=== PATIENT | male | born 1970 | race Caucasian/White ===

== ENCOUNTER 2018-07-16 13:35 | Inpatient (IN) ==
[~2018-07-16 13:35] MED LIST: ANTIZOL IV ONE; NS IV ONE
[2018-07-16] MEDS ORDERED: NS 1,000 ML IV ONE ×2 (13:47→14:24)
[2018-07-16 13:57] LABS: BE -23.6 mmoll (-3.0-3.0); BLOOD TYPE ARTERIAL; HCO3-(ACT) 6.5 mmoll (20.0-26.0); METHB 1.2 % (0.0-1.5); O2(CT) 14.9 mL/dL (15.0-23.0); O2HB 96.5 % (95.0-99.0); PO2(98.6) 134 mmHg (60-100); SAMPLE BLOOD; THB 10.8 g/dL (11.5-17.4)
[2018-07-16 14:02] LABS: HEMATOCRIT 30.7 % (42.0-52.0); HEMOGLOBIN 10.3 g/dL (14.0-18.0); MCH 34.6 PG (27-31); MCHC 33.6 g/dL (33-37); RBC 2.98 XMIL (4.7-6.1)
[2018-07-16 14:02] LABS: pH(98.6) 7.09 (7.35-7.45)
[2018-07-16 14:03] LABS: BASO# 0.01 X1000 (0.0-0.2); BASO% 0.1 % (0.0-0.8); EOS# 0.01 X1000 (0.0-0.7); EOS% 0.1 % (0.0-10.0); IMM GRAN# 0.05 X1000 (0.0-0.04); LYMPH# 0.48 X1000 (1.2-3.4); LYMPH% 3.7 % (20.5-51.1); MONO# 1.39 X1000 (0.11-0.59); MONO% 10.6 % (1.7-9.3); MPV 10.7 FL (7.4-10.4); NEUT# 11.18 X1000 (1.4-6.5); NEUT% 85.1 % (42.2-75.2); PLT 151 X1000 (130-400)
[2018-07-16 14:03] LABS: ALLEN TEST NO; MODALITY ROOM AIR; PCO2(98.6) 14 mmHg (35-45)
[2018-07-16 14:31] LABS: INR 1.31; PROTIME 16.9 Seconds (11.0-16.0)
[2018-07-16 14:41] LABS: PTT 27.6 Seconds (22.3-41.8)
[2018-07-16 14:42] LABS: ALBUMIN 3.8 g/dL (3.5-5.0); ALKALINE PHOSPHATASE 103 U/L (32-122); BUN 58 mg/dL (8-22); CALCIUM 6.5 mg/dL (8.8-10.2); CHLORIDE 83 mmol/L (98-107); COSMO 308; CREATININE 2.6 mg/dL (0.7-1.2); ESTIMATED GFR 27; GLUCOSE 126 mg/dL (70-104); GOT 151 U/L (10-34); GPT 53 U/L (10-44); POTASSIUM 3.3 mmol/L (3.5-5.1); SODIUM 146 mmol/L (136-145); TOTAL PROTEIN 6.1 g/dL (6.3-8.3)
[2018-07-16] MEDS ORDERED: M.V.I.-12 10 ML, FOLIC ACID 1 MG, MAGNESIUM SULFATE 1 GM, THIAMINE 100 MG in NS 1,000 ML IV ONE (14:46)
[2018-07-16 14:47] LABS: BILIRUBIN URINE NEGATIVE (NEGATIVE); BLOOD URINE 1+ (NEGATIVE); CLARITY CLEAR (CLEAR); COLOR YELLOW; GLUCOSE URINE NEGATIVE (NEGATIVE); KETONE URINE 3+(Large) mg/dL (NEGATIVE); LEUKOCYTES URINE TRACE (NEGATIVE); NITRITE URINE NEGATIVE (NEGATIVE); PH URINE 6.5; PROTEIN URINE 1+(30 mg/dL) mg/dL (NEGATIVE); SP GRAVITY URINE 1.025; UROBILINOGEN URINE 4 mg/dL
[2018-07-16 14:49] LABS: URINE BACTERIA 1+ /HFP; URINE EPITHELIAL CELLS <10 /HPF (<10); URINE RBC <10 /HPF (<10); URINE WBC <10 /HPF (<10); URINE YEAST NONE SEEN /HPF
[2018-07-16 14:50] LABS: URINE CAST NONE SEEN /LPF; URINE CRYSTAL NONE SEEN /HPF; URINE SOURCE CATH
--- NOTE | 2018-07-16 15:06 | Diag Imaging Result Doc PS360 ---
EXAM: CHEST-1 VIEW HISTORY: ams TECHNIQUE: Chest single view COMPARISON: 08/22/2015 FINDINGS: Poor inspiratory effort.. The heart is not enlarged. The vessels are not distended. There are no infiltrates. No effusion identified. IMPRESSION: Negative exam. Electronically signed by Breezy Butler 07/16/2018 3:04 PM
[2018-07-16 15:08] LABS: CK INDEX 1.2 (0.0-2.5); CK PROFILE 4064 U/L (24-204); CK-MB 48.85 ng/mL (0.0-5.0)
[2018-07-16 15:25] LABS: TCO2 3 mmol/L (25-35)
--- NOTE | 2018-07-16 15:39 | EKG Report ---
Test Performed on : 07/16/2018 2:44:01 PM Test Reason : CP Blood Pressure : / mmHG Vent. Rate : 085 BPM Atrial Rate : 085 BPM P-R Int : 094 ms QRS Dur : 092 ms QT Int : 474 ms P-R-T Axes : 046 064 063 degrees QTc Int : 564 ms Sinus rhythm. with short [place] with premature supraventricular complexes. Lateral infarct , age undetermined Prolonged QT Abnormal ECG When compared with ECG of 24-OCT-2015 11:24, Significant changes have occurred Confirmed by Shani MIMS, Wong ([id number]), news videotape editor Marcie Smith ([id number]) on 07/21/2018 1:54:54 PM
[2018-07-16 16:02] LABS: ACETAMINOPHEN < 1.2 ug/mL (10-30); SALICYLATES < 3.00 mg/dL (3-10)
[2018-07-16] MEDS ORDERED: NS 1,000 ML IV SCH (16:30)
[2018-07-16] MEDS ORDERED: CALCIUM GLUCONATE 2 GM in NS 100 ML IV ONE (16:35)
--- NOTE | 2018-07-16 16:44 | Diag Imaging Result Doc PS360 ---
EXAM: CT HEAD W/O CONTRAST HISTORY: AMS TECHNIQUE: CT head without contrast COMPARISON: 10/24/2015 FINDINGS: No parenchymal hemorrhage. No epidural or subdural hematoma. No subarachnoid hemorrhage. Borderline mild atrophy. No mass identified on this noncontrasted exam. No hydrocephalus. No sinus opacification. IMPRESSION: No hemorrhage. This exam was performed using automated exposure control, adjustment of mA or kV according to patient size, and/or use of iterative reconstruction technique. Electronically signed by Breezy Butler 07/16/2018 4:41 PM
[2018-07-16 17:05] LABS: BE -23.8 mmoll (-3.0-3.0); BLOOD TYPE ARTERIAL; HCO3-(ACT) 6.4 mmoll (20.0-26.0); METHB 1.1 % (0.0-1.5); O2(CT) 14.3 mL/dL (15.0-23.0); O2HB 96.8 % (95.0-99.0); PO2(98.6) 132 mmHg (60-100); SAMPLE BLOOD; SAO2 100.1 % (95.0-100.0); THB 10.3 g/dL (11.5-17.4)
[2018-07-16] MEDS: PROTONIX IV SCH (17:10)
--- NOTE | 2018-07-16 17:10 | HISTORY AND PHYSICAL ---
CHIEF COMPLAINT: Found altered. HISTORY OF PRESENT ILLNESS: This is a chronically ill-looking 48-year-old male with history of alcohol abuse who apparently was confused since yesterday, according to mom patient is confused and not able to provide any pertinent information. Apparently mother and father who are at bedside report that he was having a noncoherent speech yesterday and apparently overnight he has been lying down on the ground. This morning he was very confused, mom was trying talk to him but he was not able to answer appropriately questions so EMS was called and he was brought to the emergency department. Here in the in the ER he was found out to have severe metabolic acidosis with elevated renal function, elevated CK with moderate acetone levels although the plasma serum ethyl alcohol was 0 so we were called for admission. PAST MEDICAL HISTORY: Patient has been diagnosed with hypertension but for the last few months he is not taking any medication. PAST SURGICAL HISTORY: None. ALLERGIES: No known drug allergies. SOCIAL HISTORY: The patient is , he has 2 kids but he lives with parents. He smokes half a pack per day and he drinks whiskey apparently ever single day. Mother reports that he mix whiskey with Gatorade in order to pretend that he is not drinking alcohol. REVIEW OF SYSTEMS: Unfortunately because of his clinical situation he is not able to provide any major history . OBJECTIVE: Vital Signs: Temperature 95.3 degrees, heart rate 83, respiratory rate 24, blood pressure 86/54, O2 saturation 100% on 2 L nasal cannula. General: This is a chronically ill appearing frail and disheveled 48-year-old male lying in bed in no acute distress. HEENT: Head is normocephalic, atraumatic. Poor oral hygiene and also mucous membranes very dry. Neck: No JVD noted. No carotid bruits. No lymphadenopathy. No thyromegaly. Cardiovascular: S1, S2 heard. No murmurs, gallops, or rubs. Regular rate and rhythm. Respiratory: Clear bilaterally to auscultation. Decreased breath sounds globally. Minimal wheezing noted in both pulmonary bases. Patient not using any accessory muscles or having work of breathing. Abdomen: Soft, a little bit distended, nontender to palpation. Bowel sounds present. No organomegaly. Extremities: Definitely this patient is sleepier and lethargic, does not follow commands. LABORATORY DATA: White cell count 13.2, hemoglobin 10.3, hematocrit 30.7, platelets 151,000 with ABG that shows pH 7.09, pCO2 14, PO2 134, that sample was taken on room air with sodium 146, potassium 3.3, chloride 83, bicarbonate 3, anion gap no reportable, BUN 58, creatinine 2.6, glucose 126, calcium 6.7, creatine kinase 4000 with negative troponins and plasma lactate 1.6. CT of the head is still pending. Chest x-ray done on admission showed negative exam. ASSESSMENT AND PLAN: 1. Severe metabolic acidosis. 2. Severe dehydration. 3. Alcohol withdrawal. 4. Hepatic encephalopathy. 5. Severe dehydration. 6. Acute kidney injury secondary to dehydration. 7. Transaminitis. 8. Alcohol abuse. PLAN: This patient basically came to the emergency department because of metabolic encephalopathy and he was found out to be very acidotic. In that regard he has received already 2 L of normal saline and also he is receiving banana bag. We are going to check an ABG at 5 p.m. to see there is any change in metabolic acidosis. Because of his renal dysfunction he may need to have dialysis he does not continue to improve, will transfer in that regard this patient to [facility] [place] and will consult Nephrology for that. Regarding alcohol withdrawal we will start this patient on lorazepam 1 to 2 mg IV q.2 hours p.r.n. Also because this patient is a known alcoholic with ammonia level 158 will start lactulose and rifaximin and will continue to monitor this patient closely. We are also going to check phosphorus as well and will replete as needed. CRITICAL CARE TIME: 45 minutes. cc: Domenico Tyler MD
--- NOTE | 2018-07-16 17:11 | PROVIDER DOCUMENTATION ---
This chart was entered by Iris Hernandez Scribe, acting as scribe for Wong Mcleod MD. HPI-General Adult - General Chief Complaint: Altered Mental Status Stated Complaint: ams Time Seen by Provider: 07/16/18 14:06 Source: patient Allergies/Adverse Reactions: Patient Allergies Allergy/AdvReac Type Severity Reaction Status Date / Time No Known Allergies Allergy Verified 07/16/18 13:46 Home Medications: Home Medication List Medication Instructions Recorded Confirmed Last Taken Type Amlodipine [Norvasc] 10 mg PO DAILY #60 tablet 10/30/15 Unknown Rx Chlordiazepoxide [Librium] 50 mg PO TID #60 capsule 10/30/15 Unknown Rx Clonidine [Catapres] 0.1 mg PO Q4H #120 tablet 10/30/15 Unknown Rx LISINOpril [Prinivil] 20 mg PO DAILY #60 tablet 10/30/15 Unknown Rx Magnesium Oxide [Mag-Ox] 800 mg PO BID #120 tablet 10/30/15 Unknown Rx Niacin 100 mg PO DAILY #60 tablet 10/30/15 Unknown Rx Thiamine [Vitamin B-1] 100 mg PO DAILY #60 tablet 10/30/15 Unknown Rx - History of Present Illness -Gen Adult Nature of Presenting Problems: 48 y/o male presents to ED via EMS with AMS onset this afternoon. Mother of pt reports he is attempting to detox from alcohol and has been agitated over the past 2 days. Mother states he has been lying in the floor for the past 2 days and told her to leave him alone. Pt has not eaten and has had minimal po fluid intake. Pt has been less responsive today and has not been talking. Pt is altered and does not follow commands or answer questions. Location of Pain/Injury: reports: none Pain Radiation: reports: no radiation Quality of Pain: reports: none Severity: reports: moderate, severe Onset/Duration: reports: this afternoon Timing: reports: still present Context/Activities at Onset: reports: none Modifying Factors: improves with: nothing Associated Symptoms: reports: other (AMS) Similar Symptoms Previously?: No Recently seen or treated by another doctor?: No Review of Systems - Adult - REVIEW OF SYSTEMS - ADULT Constitutional: reports: other (AMS). denies: chills, fever Eyes: reports: no symptoms reported Ears, Nose, Mouth & Throat: reports: no symptoms reported Cardiovascular: denies: chest pain, palpitations Respiratory: denies: cough, shortness of breath Gastrointestinal: denies: abdominal pain, diarrhea, nausea, vomiting Genitourinary: reports: no symptoms reported Musculoskeletal: denies: back pain, joint pain Integumentary: reports: no symptoms reported Neurological: denies: dizziness/vertigo, seizure Psychiatric: reports: no symptoms reported Endocrine: reports: no symptoms reported Hematologic/Lymphatic: reports: no symptoms reported Allergic/Immunologic: reports: no symptoms reported All Other Systems: Reviewed and Negative Past History - Adult - PAST MEDICAL HISTORY-ADULT Review of Records: reports: Old Records Reviewed, Nursing Assessment Review, Medications Reviewed Major Childhood Illnesses: reports: denies history Cardiovascular: reports: denies history, HTN Respiratory: reports: denies history Gastrointestinal: reports: denies history Obstetrical/Gynecological: reports: denies history Genitourinary: reports: denies history Musculoskeletal: reports: denies history Neurological: reports: denies history Endocrine/Immune: reports: denies history Other Conditions: reports: denies history - PRIOR SURGERIES/PROCEDURES Surgical/Procedure History: reports: orthopedic (extremity) (knee; hand) - IMMUNIZATION STATUS Childhood Immunizations: See Nurse Assessment Flu Vaccine: See Nurse Assessment - FAMILY HISTORY Family History: reviewed, not pertinent - SOCIAL HISTORY Smoking: less than 1 pack/day Provider spent 3-5 mins advising pt. on dangers of tobacco.: Discussed manners to quit use, and f/u contacts for add'l counseling. Substance Use: alcohol Alcohol Use Frequency: every day Living Situation: family Physical Exam-General - PHYSICAL EXAM-ADULT Exam Limited by: AMS Initial Vital Signs Reviewed: Yes (hypotensive on monitor) - CONSTITUTIONAL General Appearance: no apparent distress, other (AMS; does not follow commands or speak) - EYES Eyes: PERRL/EOMI, pink conjunctivae - HEAD, EARS, NOSE, MOUTH & THROAT HENMT: normocephalic/atraumatic, moist mucous membranes, other (encephalopathic) - NECK Neck: full range of motion - RESPIRATORY Respiratory: lungs clear, normal breath sounds, increased rate - CARDIOVASCULAR Cardiovascular: normal peripheral pulses, regular rate, rhythm - GASTROINTESTINAL (ABDOMEN) Abdominal Exam: normal bowel sounds, non tender, soft - MUSCULOSKELETAL Back Exam: normal inspection Extremity: normal range of motion - SKIN Integumentary: normal color, warm/dry, ecchymosis (to anterior RUE), other (skin breakdown to R abdomen; dried blood present on R wrist) - NEUROLOGIC Neurologic: other (AMS; does not follow commands or speak) - PSYCHIATRIC Psych/Mental Status: other (AMS; does not follow commands or speak) Progress - PLAN OF CARE/RESULTS Progress/Plan/Lab Results: Vital Signs - 8 hr 07/16/18 13:38 Temperature 95.3 F L Pulse Rate 90 Respiratory Rate 19 Blood Pressure 73/45 Laboratory Results - last 24 hr 07/16/18 07/16/18 13:41 13:51 WBC 13.20 H RBC 2.98 L Hgb 10.3 L Hct 30.7 L MCV 103.0 H MCH 34.6 H MCHC 33.6 RDW Std Deviation 12.0 Plt Count 151 MPV 10.7 H Neut % (Auto) 85.1 H Lymph % (Auto) 3.7 L [place] % (Auto) 10.6 H Eos % (Auto) 0.1 Baso % (Auto) 0.1 Immature Gran # (Auto) 0.05 H Neut # (Auto) 11.18 H Lymph # (Auto) 0.48 L [place] # (Auto) 1.39 H Eos # (Auto) 0.01 Baso # (Auto) 0.01 Specimen Type ARTERIAL Sample Site R BRACHIAL pH 7.09 L* pCO2 14 L* pO2 134 H HCO3 6.5 L Base Excess -23.6 L Oxyhemoglobin 96.5 ABG O2 Sat (Calculated) 14.9 L ABG O2 Saturation 100.0 ABG Carboxyhemoglobin 2.30 ABG Methemoglobin 1.2 Jan Test NO A-a O2 Difference -2.0 Total Hemoglobin 10.8 L Lactate 2.40 H Blood Gas Modality ROOM AIR FiO2 % 21.0 Orders Category Date Time Status Cardiac Monitoring DIRECTED Care 07/16/18 13:39 Active [place] Cath Insertion ORDERED Care 07/16/18 13:50 Active IV Insertion ORDERED Care 07/16/18 13:39 Completed Notify MD of + Sepsis Screen NOW Care 07/16/18 13:39 Active Notify Physician As Ordered Care 07/16/18 13:39 Active Saline Loc NOW Care 07/16/18 13:47 Active CHEST-1 VIEW [RAD] Stat Exams 07/16/18 13:39 Ordered ABG [RESP] Routine Lab 07/16/18 13:41 Completed ALCOHOL BLOOD Stat Lab 07/16/18 13:55 Received AMMONIA [CHEM] Stat Lab 07/16/18 13:51 Received BLOOD CULTURE [BLDCUL] Stat Lab 07/16/18 13:40 Ordered CBC WITH DIFF [HEME] Stat Lab 07/16/18 13:51 Completed CK PROFILE [SP CHEM] Stat Lab 07/16/18 13:55 Received COMPREHENSIVE METABOLIC PANEL [CHEM] Stat Lab 07/16/18 13:55 Received LACTATE, PLASMA [CHEM] Lab 07/16/18 13:55 Received LACTATE, PLASMA [CHEM] Lab 07/16/18 16:45 Uncollected LACTATE, PLASMA [CHEM] Lab 07/16/18 19:45 Uncollected MAGNESIUM [CHEM] Stat Lab 07/16/18 13:55 Received PROTIME WITH INR [COAG] Stat Lab 07/16/18 13:55 Received PTT [COAG] Stat Lab 07/16/18 13:55 Received TROPONIN T Stat Lab 07/16/18 13:[address] W/POSS RFLX CULT [URINALYSIS] Stat Lab 07/16/18 13:39 Uncollected 0.9% Sodium Chloride Inj [Ns] 1,000 ml Med 07/16/18 13:47 Active IV 999 mls/hr Oxygen Device Stat Oth 07/16/18 13:39 Active Result Diagrams: 07/16/18 13:51 07/16/18 13:55 - EKG 1 Time of EKG reading by physician:: 14:44 EKG Read and Signed by:: Wong Mcleod EKG Interpretation (*Must complete 3 of following elements*): Abnormal Rate: 85 Rhythm: Sinus w/ short [place] w/ premature supraventricular complexes [place]: normal QRS: other (lateral infarct; prolonged QT) [place] Interval: shortened ST Wave: normal Comments: 1 ectopic beat. -Dr. Mcleod - XRAY 1 XRAY Study: Chest Impression: Normal ( FINDINGS: Poor inspiratory effort.. The heart is not enlarged. The vessels are not distended. There are no infiltrates. No effusion identified. IMPRESSION: Negative exam. Electronically signed by Breezy Butler 07/16/2018 3:04 PM) - CONSULTS/PCP/HOSPITALIST Notification #1 *Consult/PCP/Hospitalist*: Dr. Mcelroy Time Discussed: 14:30 Reason/Comments: Metabolic ketoacidosis, high CK, alcoholism, hypotension, ANGEL Consult Disposition: Admit Departure - Departure Date of Disposition Decision: 07/16/18 Time of Disposition Decision: 16:08 DIAGNOSIS: Ketoacidosis, Alcoholism, Tobacco abuse disorder Hypotension Qualifiers: Hypotension type: unspecified hypotension type Qualified Code(s): I95.9 - Hypotension, unspecified Renal failure Qualifiers: Renal failure chronicity: acute on chronic Acute renal failure type: unspecified Chronic kidney disease stage: unspecified stage Qualified Code(s): N17.9 - Acute kidney failure, unspecified; N18.9 - Chronic kidney disease, unspecified Disposition: ADMITTED INPATIENT 09 Certified Medical Emergency: Emergent Condition: Fair Additional Freetext Instructions: ED Follow Up Instructions: You have been treated by a care provider in the Emergency Department. These inst ructions are being provided to you so you can have an understanding of how to care for yourself upon discharge. Upon discharge from the Emergency Department, you are responsible for making arrangements for follow-up care by a physician of your choice. Take all prescribed medications as directed. Return to the Emergency Department immediately for any new or worsening symptoms. You may call the Physician Referral phone number at [phone] to obtain a list of Physicians who are taking new patients. Referrals and Follow-Ups: None,PCP [Primary Care Provider] - Discharge Education: Steps to Quit Smoking, [id number] - Critical Care Note This patient required my direct & personal management of CC.: No Attestation - Physician/ PRISCILA Attestation Patient care was provided by Advanced Practice Provider:: No The physician spent face to face time with patient:: Yes Advanced Practice Provider documentation review:: Supervising physician onsite and consulted in the evaluation and care of this patient. The physician did have a face to face encounter with the patient. This chart was documented by the indicated scribe, (Iris Hernandez, Brianne) and accurately reflects the services I performed and decisions made by me, Wong Mcleod MD, as attested by the provider's signature.
[2018-07-16] MEDS ORDERED: ROCEPHIN 2 GM in NS 50 ML IV ONE (17:18)
[2018-07-16] MEDS ORDERED: ROCEPHIN ONE (17:29)
[2018-07-16] MEDS ORDERED: NS 100 ML ONE (17:29)
[2018-07-16 17:38] LABS: pH(98.6) 7.09 (7.35-7.45)
[2018-07-16 17:39] LABS: ALLEN TEST NO; MODALITY CANNULA; PCO2(98.6) 13 mmHg (35-45)
--- NOTE | 2018-07-16 17:54 | Diag Imaging Result Doc PS360 ---
EXAM: US ABDOMEN-COMPLETE HISTORY: severe metabolic acidosis TECHNIQUE: Abdominal ultrasound COMPARISON: None. FINDINGS: Normal pancreatic body. Portions of the head and tail are obscured. No abdominal aortic aneurysm. There is fatty infiltration of the liver. Normal gallbladder. No stones. The common bile duct measures 3 mm. Normal right kidney. No hydronephrosis. The inferior vena cava is poorly seen. Normal left kidney. No hydronephrosis. Normal spleen. No ascites. IMPRESSION: Fatty infiltration of the liver Electronically signed by Breezy Butler 07/16/2018 5:52 PM
[2018-07-16] MEDS: ZOFRAN IV PRN (18:44)
[2018-07-16] MEDS: ATIVAN IV PRN ×2 (18:48→23:03)
[2018-07-16] MEDS: LOPRESSOR IV SCH (19:37)
[2018-07-16] MEDS: SODIUM BICARBONATE 8.4% 150 MEQ in D5W 1,000 ML IV SCH (20:02)
[2018-07-16] MEDS: POTASSIUM CHLORIDE 20 MEQ/SWI 20 MEQ/100 ML IVPB IV SCH ×2 (20:03→22:22)
[2018-07-16] MEDS ORDERED: MISC. PHARMACY COMMUNICATION SCH (20:30)
[2018-07-16 20:44] LABS: BASO# 0.01 X1000 (0.0-0.2); BASO% 0.1 % (0.0-0.8); HEMATOCRIT 30.9 % (42.0-52.0); HEMOGLOBIN 10.1 g/dL (14.0-18.0); IMM GRAN# 0.05 X1000 (0.0-0.04); IMM GRAN% 0.5 % (0.0-0.5); LYMPH# 0.81 X1000 (1.2-3.4); LYMPH% 7.7 % (20.5-51.1); MCH 33.4 PG (27-31); MCHC 32.7 g/dL (33-37); MCV 102.3 FL (81-99); MONO# 0.67 X1000 (0.11-0.59); MONO% 6.4 % (1.7-9.3); MPV 10.1 FL (7.4-10.4); NEUT# 8.95 X1000 (1.4-6.5); NEUT% 85.3 % (42.2-75.2); PLT 142 X1000 (130-400); RBC 3.02 XMIL (4.7-6.1); RDW 12.2 % (11.5-14.5); WBC 10.49 X1000 (4.8-10.8)
[2018-07-16 20:57] LABS: LYMPHS 8 % (21-51); MONO 6 % (1-9); SEGS 84 % (42-75)
[2018-07-16] MEDS ORDERED: LACTULOSE PO SCH (21:00)
[2018-07-16] MEDS ORDERED: MISC. PHARMACY COMMUNICATION ONE (21:16)
[2018-07-16 21:22] LABS: MAGNESIUM 2.5 mg/dL (1.5-2.7); PHOSPHORUS 10.7 mg/dL (2.7-4.5)
[2018-07-16] MEDS: XIFAXAN PO SCH (21:28)
[2018-07-16 21:30] LABS: ALB/GLOB RATIO 1.4; ALBUMIN 3.4 g/dL (3.5-5.0); ALKALINE PHOSPHATASE 99 U/L (32-122); BUN 63 mg/dL (8-22); CALCIUM 6.5 mg/dL (8.8-10.2); CHLORIDE 94 mmol/L (98-107); CK PROFILE 13501 U/L (24-204); COSMO 322; CREATININE 2.4 mg/dL (0.7-1.2); ESTIMATED GFR 29; GLUCOSE 133 mg/dL (70-104); GOT 219 U/L (10-34); GPT 64 U/L (10-44); POTASSIUM 3.2 mmol/L (3.5-5.1); SODIUM 152 mmol/L (136-145); TCO2 5 mmol/L (25-35); TOTAL BILIRUBIN 1.97 mg/dL (0.20-1.00); TOTAL PROTEIN 5.9 g/dL (6.3-8.3)
[2018-07-16 21:47] LABS: CK INDEX 0.9 (0.0-2.5)
[2018-07-16] MEDS: NON-FORMULARY MED PR SCH (21:53)
[2018-07-16] MEDS ORDERED: CALCIUM GLUCONATE 1 GM in NS 50 ML IV ONE (22:39)
[2018-07-16 23:30] LABS: ALBUMIN 3.4 g/dL (3.5-5.0); CALCIUM 6.5 mg/dL (8.8-10.2); CREATININE 2.5 mg/dL (0.7-1.2); PHOSPHORUS 9.1 mg/dL (2.7-4.5); POTASSIUM 3.3 mmol/L (3.5-5.1)
[2018-07-17] MEDS: LOPRESSOR IV SCH ×4 (00:15→22:03)
[2018-07-17] MEDS: SODIUM BICARBONATE 8.4% 150 MEQ in D5W 1,000 ML IV SCH ×3 (02:37→17:28)
[2018-07-17] MEDS: PROTONIX IV SCH ×2 (03:40→16:09)
--- NOTE | 2018-07-17 04:19 | NEPHROLOGY CONSULTATION ---
DATE: 07/16/2018 REASON FOR CONSULTATION: Severe acidosis and acute kidney injury. HISTORY OF PRESENT ILLNESS: Mr. Pascal is a 48-year-old man with a history of alcohol abuse and hypertension, but he does not take any medications. He was brought to the emergency room because of worsening confusion over the last 24 hours. Family is not present at the bedside at the time my examination, with adequate stimulation he will mumble and open his eyes, but he is not able to answer any questions. The chart relates that the parents found him in coherent and lying on the ground. No further history is available to me. PAST MEDICAL HISTORY: As above. SOCIAL HISTORY: The time of his last drink is not known to me. He smokes. FAMILY HISTORY: Not obtainable. REVIEW OF SYSTEMS: Not obtainable. PHYSICAL EXAMINATION: Vital Signs: Blood pressure 91/47, heart rate 87, respiration 18, afebrile. General: Acutely ill, confused, tremulous. Skin: Warm and dry. HEENT: Conjunctivae are pink. Pupils are 2 mm and reactive. Oropharynx is dry. Tongue is coated. Poor oral hygiene. Neck: Supple. Trachea is midline. Neck veins are not visible. Heart: Regular and tachycardic. Lungs: Equal, shallow, no crackles. Abdomen: He has general tenderness, but not clear guarding or rebound. Bowel sounds are diminished. Extremities: Have no edema, clubbing, or cyanosis. Intact distal pulses. IMPRESSION: Alcoholic ketoacidosis. Profoundly elevated anion gap at around 50 on presentation. Appropriate respiratory compensation. Mild hypokalemia but severe hyperphosphatemia and hypocalcemia present. He is developing rhabdomyolysis with creatine kinase rising from 4000 to 13,000 over the first 12 hours. His measured Osmolal gap is 29. Serum ethanol is negative. Salicylate and acetaminophen are both negative as well. Again, the most likely cause is alcoholic ketoacidosis. However, given his elevated osmolal gap I will cover with famethoxazole until further results are available. He does not have crystals on his urine, and his serum ethylene glycol level is pending. Continue D5 with 3 amps sodium bicarbonate, as well as potassium supplementation, intravenous lorazepam, metoprolol as needed. He has received multivitamin with thiamine. cc: Frankie Lugo MD
[2018-07-17 04:54] LABS: HEMATOCRIT 29.7 % (42.0-52.0); HEMOGLOBIN 10.2 g/dL (14.0-18.0); IMM GRAN# 0.03 X1000 (0.0-0.04); IMM GRAN% 0.4 % (0.0-0.5); LYMPH# 0.42 X1000 (1.2-3.4); LYMPH% 5.1 % (20.5-51.1); MCH 34.3 PG (27-31); MCHC 34.3 g/dL (33-37); MONO% 9.7 % (1.7-9.3); MPV 10.2 FL (7.4-10.4); NEUT# 6.99 X1000 (1.4-6.5); NEUT% 84.8 % (42.2-75.2); PLT 112 X1000 (130-400); RBC 2.97 XMIL (4.7-6.1); RDW 12.1 % (11.5-14.5); WBC 8.24 X1000 (4.8-10.8)
[2018-07-17 04:58] LABS: INR 1.18; PROTIME 15.9 Seconds (11.0-16.0)
[2018-07-17 05:07] LABS: ALLEN TEST YES; BLOOD TYPE ARTERIAL; HCO3-(ACT) 17.9 mmoll (20.0-26.0); O2(CT) 12.9 mL/dL (15.0-23.0); O2HB 96.3 % (95.0-99.0); PCO2(98.6) 43 mmHg (35-45); PO2(98.6) 144 mmHg (60-100); SAMPLE BLOOD; SAO2 96.5 % (95.0-100.0); THB 9.3 g/dL (11.5-17.4); pH(98.6) 7.23 (7.35-7.45)
[2018-07-17 05:08] LABS: MODALITY CANNULA
[2018-07-17 05:12] LABS: ALB/GLOB RATIO 1.3; CREATININE 2.9 mg/dL (0.7-1.2); POTASSIUM 2.7 mmol/L (3.5-5.1); TOTAL BILIRUBIN 1.08 mg/dL (0.20-1.00); TOTAL PROTEIN 5.3 g/dL (6.3-8.3)
[2018-07-17 05:42] LABS: CALCIUM 6.4 mg/dL (8.8-10.2)
[2018-07-17] MEDS ORDERED: POTASSIUM CHLORIDE 60 MEQ in NS 500 ML IV ONE ×2 (07:03)
[2018-07-17] MEDS ORDERED: CALCIUM GLUCONATE 2 GM in NS 100 ML IV ONE (07:03)
[2018-07-17] MEDS ORDERED: M.V.I.-12 10 ML, FOLIC ACID 1 MG, MAGNESIUM SULFATE 1 GM, THIAMINE 100 MG in NS 1,000 ML IV ONE (08:00)
[2018-07-17] MEDS: XIFAXAN PO SCH ×2 (08:09→22:30)
[2018-07-17 09:45] LABS: URINE SOURCE CATH
[2018-07-17 09:57] LABS: UR EPITHELIAL CELLS <10 /HPF (<10); URINE BACTERIA NEGATIVE /HPF; URINE RBC TNTC /HPF (<10)
[2018-07-17 10:06] LABS: BILIRUBIN URINE SMALL (NEGATIVE); BLOOD URINE LARGE (NEGATIVE); COLOR ORANGE; GLUCOSE URINE TRACE mg/dL (NEGATIVE); KETONE URINE 60 mg/dL (NEGATIVE); LEUKOCYTES URINE TRACE (NEGATIVE); NITRITE URINE NEGATIVE (NEGATIVE); PH URINE 5.5; PROTEIN URINE 100 mg/dL (NEGATIVE); TURBIDITY URINE HAZY (CLEAR); UROBILINOGEN URINE NORMAL (NORMAL)
--- NOTE | 2018-07-17 10:12 | PROGRESS NOTE ---
DATE: 07/17/2018 SUBJECTIVE: The patient is now definitely more lethargic than yesterday. He has been calmed down most of the time. Last night, no acute issues noted as per nursing staff overnight. OBJECTIVE: Vital Signs: Temperature 98.2 degrees, heart rate 75, respiratory rate 14, blood pressure 111/74, O2 saturation 100% 2 L nasal cannula. General: This is a chronically ill- looking, disheveled 48-year-old male, lying in bed in no acute distress. HEENT: Normocephalic, atraumatic. Poor dentition. Mucous membrane dry. Neck: No JVD noted. No carotid bruits. No lymphadenopathy. No thyromegaly. Cardiovascular: S1-S2 heard. No murmur, gallops, or rubs. Regular rate and rhythm. Respiratory: Decreased breath sounds globally. There is minimal wheezing noted in both pulmonary bases. The patient is not using any accessory muscles or having work of breathing. Abdomen: Soft. A little bit distended. Same in comparing with yesterday but nontender to palpation. Bowel sounds present. No organomegaly. Extremities: No clubbing, cyanosis, or edema. Peripheral pulses present in both legs. Neurological: The patient is alert and oriented x3. The patient is confused and lethargic. Does not follow commands but moves all 4 extremities spontaneously. LABORATORY DATA: White cell count 8.34, hemoglobin 10.2, hematocrit 29.7, platelets 112,000. ABG shows pH 7.23, pCO2 43, PO2 144. Potassium 2.7, creatinine 2.9. Calcium 6.4, serum osmolality 3.43. Magnesium 2.3, phosphorus 6.0, creatine kinase 15,000. ASSESSMENT AND PLAN: 1. Alcoholic ketoacidosis. 2. Hypokalemia. 3. Hypophosphatemia. 4. Hepatic encephalopathy. 5. Nontraumatic rhabdomyolysis. The patient has been admitted to the hospital because he was found unresponsive. Labs all pointed to severe metabolic acidosis. Nephrology has been consulted. They are thinking that this patient may have ethylene glycol intoxication. The patient in regard has been provided Fomepizole. We will continue with bicarbonate drip. His numbers are looking much better today. Of course, will continue to monitor this patient closely because he may need dialysis. Will leave that decision to Dr. Lugo. Also I was called yesterday because this patient had an episode of SVT with heart rate in the range of 150-160 but after we started metoprolol 5 mg IV q.6 hours, heart rate is definitely much better controlled. For hepatic encephalopathy, the patient has been started on rifaximin and lactulose. The ammonia level is definitely much better. Also, we are going to treat his hypocalcemia. We will continue with IV fluids. We will continue to monitor this patient closely. cc: Domenico Tyler MD MTDD
--- NOTE | 2018-07-17 10:12 | NEPHROLOGY PROGRESS NOTE ---
DATE: 07/17/2018 SUBJECTIVE: Mr. Pascal is resting quietly in bed. Head of the bed is elevated. He is awake today but he drifts off to sleep. He continues to have fine nonpurposeful tremors of his head and extremities. OBJECTIVE: Vital Signs: His most recent vital signs temperature 97.8 pressure 118/74, heart rate 82, respirations 18. He is on 2 L nasal cannula. Last recorded saturation 99%. He has had 1350 in, 285 out to Orantes catheter. Laboratory Data: Sodium 145, potassium 2.7, chloride 94, CO2 14, BUN 69, creatinine 2.9, glucose 226. His anion gap is 37. His calcium is 6.4, phosphorus is down to 6, albumin of 3. White count 8.24, hemoglobin 10.2, hematocrit 29.7 with a platelet count of 112,000. His pro time is 15.9 with an INR of 1.18. ABG: pH 7.23, CO2 43, PO2 144, bicarb 17.9, lactate of 1.3 with a plasma lactate of 1.0. This is on 2 L. His last CPK 15,234. His ammonia level is 64, which is down. We will repeat a serum osmolality, last recorded was 348. General: This is a 48-year-old white male. He is resting quietly in bed. He appears chronically ill. He is in no acute distress. Skin: Warm and dry. HEENT: Normocephalic, atraumatic. Conjunctiva is pink. He has ELVA. Mucous membranes are dry. His tongue is coated. Neck: Supple. Trachea midline. He has negative JVD. Cardiovascular: He has regular rate and rhythm. He has an S4 present. Lungs: Clear to auscultation anteriorly, equal excursion on O2. Abdomen: Soft. Slight tenderness on palpation. Slight guarding noted. Genitourinary: Orantes catheter is in place. Minimal urine out. Extremities: Have no edema, no clubbing or cyanosis. Intact pulses. Neurological: As above. ASSESSMENT AND PLAN: 1. Acute kidney injury. BUN and creatinine continue to elevate. His urine output has dropped off to 285 per Orantes catheter. He continues to receive fluid resuscitation per sodium bicarbonate and a multivitamin IV bag. This may be multifactorial secondary to severe alcoholic ketoacidosis with an elevated anion gap. 2. Acidosis. The patient remains in alcoholic ketoacidosis with an elevated anion gap. His hyperphosphatemia has improved. Hypokalemia persists with hypocalcemia. His measured osmolar gap this morning is 29. The patient does remain on a sodium bicarbonate drip. He is being treated with fomepizole. We will continue to monitor. We will repeat his acetone level and check a UA. 3. Anemia. This is close to target. I would like to thank you for allowing us to follow with this patient. Dictated by POLA Vasquez for Frankie Lugo MD Face to face encounter, data reviewed, discussed with Katelynn Cook on 07/17/18. I agree with the above assessment and plan of care. cc: POLA Vasquez MD [facility]
[2018-07-17] MEDS: NON-FORMULARY MED PR SCH ×2 (10:21→22:17)
--- NOTE | 2018-07-17 11:28 | EKG Report ---
Test Performed on : 07/16/2018 5:54:05 PM Test Reason : ICU. No order in [place] Blood Pressure : / mmHG Vent. Rate : 154 BPM Atrial Rate : 147 BPM P-R Int : 000 ms QRS Dur : 090 ms QT Int : 332 ms P-R-T Axes : 000 026 258 degrees QTc Int : [address] & T wave abnormality, consider anterior ischemia Abnormal ECG When compared with ECG of 16-JUL-2018 14:44, (Unconfirmed) premature supraventricular complexes. are no longer present Vent. rate has increased BY [address] no longer elevated in Anterior leads Confirmed by Stacy MIMS, Pablo ([id number]) on 07/18/2018 8:35:09 AM
[2018-07-17] MEDS: NS IV SCH (13:11)
[2018-07-17] MEDS: ANTIZOL IV SCH (13:11)
[2018-07-17] MEDS: SODIUM CHLORIDE 0.9% INJ SCH (16:09)
[2018-07-18] MEDS: ANTIZOL IV SCH (02:49)
[2018-07-18] MEDS: NS IV SCH (02:49)
[2018-07-18] MEDS: LOPRESSOR IV SCH ×4 (02:50→20:28)
[2018-07-18] MEDS: SODIUM BICARBONATE 8.4% 150 MEQ in D5W 1,000 ML IV SCH (02:51)
[2018-07-18] MEDS: SODIUM CHLORIDE 0.9% INJ SCH (03:31)
[2018-07-18] MEDS: PROTONIX IV SCH ×2 (03:31→18:01)
[2018-07-18 05:00] LABS: ALLEN TEST YES; BE 22.1 mmoll (-3.0-3.0); BLOOD TYPE ARTERIAL; HCO3-(ACT) 42.2 mmoll (20.0-26.0); METHB 1.8 % (0.0-1.5); O2(CT) 13.4 mL/dL (15.0-23.0); O2HB 95.7 % (95.0-99.0); PO2(98.6) 110 mmHg (60-100); SAMPLE BLOOD; SAO2 99.1 % (95.0-100.0); THB 9.8 g/dL (11.5-17.4)
[2018-07-18 05:02] LABS: MODALITY CANNULA; PCO2(98.6) 51 mmHg (35-45); pH(98.6) 7.57 (7.35-7.45)
[2018-07-18 05:14] LABS: HEMATOCRIT 27.4 % (42.0-52.0); HEMOGLOBIN 9.4 g/dL (14.0-18.0); IMM GRAN# 0.02 X1000 (0.0-0.04); IMM GRAN% 0.5 % (0.0-0.5); LYMPH# 0.44 X1000 (1.2-3.4); MCH 33.1 PG (27-31); MCHC 34.3 g/dL (33-37); MCV 96.5 FL (81-99); MONO# 0.61 X1000 (0.11-0.59); MONO% 13.8 % (1.7-9.3); MPV 9.7 FL (7.4-10.4); NEUT# 3.35 X1000 (1.4-6.5); NEUT% 75.7 % (42.2-75.2); PLT 81 X1000 (130-400); RBC 2.84 XMIL (4.7-6.1); RDW 12.3 % (11.5-14.5); WBC 4.42 X1000 (4.8-10.8)
[2018-07-18 05:16] LABS: INR 1.14; PROTIME 15.5 Seconds (11.0-16.0)
[2018-07-18 06:21] LABS: ALB/GLOB RATIO 1.3; ALBUMIN 2.8 g/dL (3.5-5.0); CREATININE 3.3 mg/dL (0.7-1.2); PHOSPHORUS 1.6 mg/dL (2.7-4.5); TOTAL PROTEIN 4.9 g/dL (6.3-8.3)
[2018-07-18 06:26] LABS: CALCIUM 6.5 mg/dL (8.8-10.2); POTASSIUM 2.2 mmol/L (3.5-5.1)
[2018-07-18] MEDS ORDERED: POTASSIUM PHOSPHATE 60 MEQ in NS 250 ML IV ONE (06:34)
[2018-07-18] MEDS ORDERED: POTASSIUM PHOSPHATE 40 MEQ in NS 250 ML IV ONE (06:38)
[2018-07-18] MEDS: D5 NS 1,000 ML IV SCH ×2 (07:23→20:06)
[2018-07-18] MEDS: XIFAXAN PO SCH ×2 (08:50→20:28)
--- NOTE | 2018-07-18 08:53 | NEPHROLOGY PROGRESS NOTE ---
DATE: 07/18/2018 Date Seen: 07/18/2018. Time Seen: 0620. SUBJECTIVE: Mr. Pascal is resting in bed. He is more awake and alert today. States that he has right shoulder pain. OBJECTIVE: His most recent vital signs temperature 98.7 degrees, blood pressure 131/91, heart rate 77 respirations 14. He is on 4 L nasal cannula. His last recorded saturation is 97%. He has had 5400 in 850 out to Orantes catheter. LABORATORY DATA: Sodium 148, potassium 2.2, chloride 95, CO2 40, BUN 63, creatinine 3.3, glucose 254. His anion gap is 13, calcium 6.5, phosphorus 1.6, albumin 2.8. White count 4.42, hemoglobin 9.4, hematocrit 27.4, with a platelet count of 81,000. His ProTime is 13.5, INR of 1.14. ABGs pH 7.57, CO2 51, PO2 110, bicarb 42.2, with a lactate of 1.4 on 4 L nasal cannula. The patient has an ammonia level this a.m. of 42, magnesium of 1.9. His last CPK was 12,300. PHYSICAL EXAMINATION: General: This is a 48-year-old white male resting quietly in bed. He appears chronically ill though no acute distress. Skin: Warm and dry. HEENT: Normocephalic, atraumatic. Conjunctiva is pale pink. He has PERRL. Mucous membranes are moist. Neck: Supple. Trachea midline. He has positive JVD at 6 cm. Cardiovascular: Regular rate and rhythm. He is S4, slightly tachycardic. Abdomen: Soft nontender positive bowel sounds. Genitourinary: Not inspected. Orantes catheter is in place with yellow urine. Extremities: Have no edema, no clubbing or cyanosis to the lower extremities. He does have some swelling to the right upper arm, shoulder area. Bruising is evident. 1+ strength to the right hand. Good capillary refill. Warm to touch. It is also noted he has bruising to his right hip. Neurological: Patient is more awake and alert today. ASSESSMENT AND PLAN: 1. Acute kidney injury. The patient's BUN and creatinine have stabilized. His creatinine is 3.3 from 2.9 yesterday. He has had increased urinary output. Secondary to these findings, we will continue to monitor and continue fluid resuscitation. No indication for dialysis intervention. 2. Acidosis. The patient's anion gap has closed with a gap of 13. He is in respiratory alkalosis and metabolic alkalosis. We will stop his sodium bicarbonate drip, place him on D5 normal saline at 75 mL an hour. Check labs in am. 3. Electrolytes. The patient's potassium remains low at 2.2. We will give him a K-Phos replacement of 40 mEq over the next 4 hours. 4. Anemia. This remains low but stable. 5. Alcoholic ketoacidosis. Resolved. Stop sodium bicarbonate. 6. Rhabdomyolysis. Improving. I would like to thank you for allowing us to follow with this patient. Dictated by POLA Vasquez for Frankie Lugo MD Face to face encounter, data reviewed, discussed with Katelynn Cook on 9. I agree with the above assessment and plan of care. cc: POLA Vasquez MD [facility] [place]
[2018-07-18] MEDS: NON-FORMULARY MED PR SCH ×2 (10:06→21:13)
[2018-07-18] MEDS ORDERED: KLOR-CON PO ONE (14:32)
--- NOTE | 2018-07-18 15:02 | PROGRESS NOTE ---
DATE: 07/18/2018 SUBJECTIVE: This morning, Mr. Pascal referred to be doing fairly okay. Just weakness, more on the right upper extremity. OBJECTIVE: Vital Signs: Blood pressure is 150/97, pulse was 76, respirations were 20, temperature is 98.1 degrees. The patient was saturating at 100% on 4 L. General Examination: Mr. Pascal is a 48-year-old, gentleman. He was in bed, no seemingly distressed. HEENT: Mucosa is pink and moist. Anicteric. Acyanotic. Neck: Supple. Chest: Good air entry bilaterally. No crepitations. No rhonchi. Cardiovascular: Regular rate and rhythm. There was no murmur. GI: Abdomen was soft, minimally distended but bowel sounds were present. Extremities: No pedal edema. Peripheral pulses are bilaterally present. The upper extremity, right side, has minimal erythematous changes in the medial aspect of the armpit going over to the shoulder. There are also some mild erythematous changes over the lateral aspect of the shoulder. 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 Follows basic commands. Laboratory Data: WBC is 4.42, hemoglobin is 9.4, platelet count of 81,000. Chemistry is also reviewed. Sodium is 148, potassium is 2.2, chloride 95, bicarb is 40, anion gap is 13, creatinine is 3.3, phosphorus is 1.6. MEDICATIONS: Have all been reviewed. ASSESSMENT: 1. Severe high anion gap metabolic acidosis, presumably due to alcohol ketosis. 2. Electrolyte abnormality associated with prolonged alcohol abuse (hypokalemia, hypophosphatemia, hypomagnesemia). We will continue to replace. 3. Hepatic encephalopathy, improving. 4. Rhabdomyolysis. We will continue with intravenous fluids. 5. History of alcohol abuse. The patient is currently on as needed Ativan. We will add gabapentin to help with alcohol craving and withdrawal. cc: Aren Licona MD
[2018-07-18] MEDS: NEURONTIN PO SCH ×2 (15:09→20:28)
[2018-07-18] MEDS: LIBRIUM PO SCH (18:01)
[2018-07-19] MEDS: PROTONIX IV SCH (03:51)
[2018-07-19] MEDS: LOPRESSOR IV SCH ×4 (03:51→20:23)
[2018-07-19 05:47] LABS: INR 1.19; PROTIME 16.1 Seconds (11.0-16.0)
[2018-07-19 06:18] LABS: EOS# 0.01 X1000 (0.0-0.7); EOS% 0.2 % (0.0-10.0); HEMATOCRIT 27.5 % (42.0-52.0); HEMOGLOBIN 9.4 g/dL (14.0-18.0); IMM GRAN# 0.03 X1000 (0.0-0.04); IMM GRAN% 0.7 % (0.0-0.5); LYMPH# 0.52 X1000 (1.2-3.4); LYMPH% 11.6 % (20.5-51.1); MCH 33.5 PG (27-31); MCHC 34.2 g/dL (33-37); MCV 97.9 FL (81-99); MONO# 0.58 X1000 (0.11-0.59); MONO% 12.9 % (1.7-9.3); MPV 10.5 FL (7.4-10.4); NEUT# 3.36 X1000 (1.4-6.5); NEUT% 74.6 % (42.2-75.2); PLT 66 X1000 (130-400); RBC 2.81 XMIL (4.7-6.1); RDW 12.2 % (11.5-14.5)
[2018-07-19 06:29] LABS: ALBUMIN 2.5 g/dL (3.5-5.0); CREATININE 3.3 mg/dL (0.7-1.2); PHOSPHORUS 2.2 mg/dL (2.7-4.5); TOTAL BILIRUBIN 0.99 mg/dL (0.20-1.00); TOTAL PROTEIN 4.9 g/dL (6.3-8.3)
[2018-07-19 06:33] LABS: CALCIUM 5.4 mg/dL (8.8-10.2)
[2018-07-19] MEDS: NEURONTIN PO SCH ×2 (08:07→20:23)
[2018-07-19] MEDS: LIBRIUM PO SCH ×3 (08:07→17:34)
[2018-07-19] MEDS: XIFAXAN PO SCH ×2 (08:07→20:23)
[2018-07-19] MEDS: MAG-OX PO SCH ×2 (08:34→20:23)
[2018-07-19] MEDS: NEUTRA-PHOS PO SCH ×4 (08:34→20:23)
[2018-07-19] MEDS: POTASSIUM CHLORIDE 20 MEQ in D5 1/4 NS 1,000 ML IV SCH ×2 (09:02→17:34)
[2018-07-19] MEDS: KLOR-CON PO SCH ×2 (09:23→20:23)
--- NOTE | 2018-07-19 09:57 | NEPHROLOGY PROGRESS NOTE ---
DATE: 07/19/2018 SUBJECTIVE: He is awake, alert. He is able to move his arm today. No new complaints. No shortness of breath, nausea, vomiting. OBJECTIVE: Vital Signs: Blood pressure 135/90, heart rate 81, respirations 22, intake 4 L. Output 1 L. General: No acute distress. Skin: Warm and dry. HEENT: Conjunctivae are pink. Neck: Neck veins are not distended. Heart: Regular with a gallop and tachycardia. Lungs: Equal. No crackles or wheezes. Abdomen: Soft, nontender. Bowel sounds present. Extremities: No edema, clubbing or cyanosis. IMPRESSION AND PLAN: 1. Acute kidney injury. Creatinine 3.3 today. This is stable from yesterday and urine output 1 L. He should avoid requiring dialysis. 2. Metabolic acidosis, resolved. He now has iatrogenic metabolic alkalosis. 3. Electrolyte abnormalities. Phosphorus is improved but still on the low side. Potassium remains low. We will treat orally. cc: Frankie Lugo MD
[2018-07-19] MEDS: NON-FORMULARY MED PR SCH ×2 (11:22→21:02)
--- NOTE | 2018-07-19 14:32 | PROGRESS NOTE ---
DATE: 07/19/2018 SUBJECTIVE: Today Mr. Pascal referred to be doing fairly okay. Denies any complaints. OBJECTIVE: Vitals: Blood pressure is 133/88, pulse of 89, respirations 20, temperature is 99.6 degrees. On general exam, Mr. Pascal is a 48-year-old gentleman. He is in bed. He does not seem to be in any cardiopulmonary distress. Mucosa is pink, slightly dry. Anicteric. Acyanotic. Neck is supple. Chest: Good air entry bilaterally. No crepitations. No rhonchi. Cardiovascular: Regular rate and rhythm. No murmurs, no rubs, no gallops. Gastrointestinal: Abdomen is soft, nontender. Bowel sounds present. Extremities: No pedal edema. Distal pulses present. The right upper extremity has some minimal erythematous changes over the medial aspect of the armpit going over to the shoulder as well as some erythematous changes on the medial to lateral aspect of the shoulder itself. Central Nervous System: Patient is awake, alert, and oriented. There is no focal neurological deficit. LABORATORY DATA: WBC is 4.50, hemoglobin is 9.4, platelet count of 66,000. Chemistry is also reviewed; sodium is 149, potassium is 2.0, chloride is 101, bicarbonate is 37, creatinine is 3.3. ASSESSMENT: 1. Severe high anion gap metabolic acidosis secondary to alcohol ketoacidosis, improved. 2. Electrolyte abnormality associated with prolonged alcohol abuse (hypokalemia, hypophosphatemia). We will continue to replace this. 3. Altered mental status on presentation, presumed to be global encephalopathy with no focalization. The patient's mentation has significantly improved. 4. Rhabdomyolysis. CK continues to be on downward trend. 5. History of alcohol abuse. The patient is on Librium and gabapentin for withdrawal. 6. Acute kidney injury. Creatinine is 3.3 today. It has been like that for 2 days in a row. The patient is however making adequate urine so we will continue with the current IV hydration. Nephrology is on board. 7. Alcoholic hepatitis. Noted. In general, I think Mr. Pascal is clinically doing well. His labs this morning look slightly worse than before. We have changed the IV fluids to just D5 and quarter saline with potassium. We will also replace all the other electrolytes abnormalities on the serum. We will follow up with a repeat lab work tomorrow morning. cc: Aren Licona MD
[2018-07-19] MEDS: SSD CREAM TOP SCH ×2 (15:39→21:02)
[2018-07-19] MEDS: PROTONIX PO SCH (18:04)
[2018-07-20] MEDS: LOPRESSOR IV SCH ×4 (03:09→21:04)
[2018-07-20] MEDS: POTASSIUM CHLORIDE 20 MEQ in D5 1/4 NS 1,000 ML IV SCH ×2 (04:36→14:21)
[2018-07-20 06:22] LABS: ALBUMIN 2.5 g/dL (3.5-5.0); CREATININE 3.1 mg/dL (0.7-1.2); TOTAL BILIRUBIN 1.07 mg/dL (0.20-1.00); TOTAL PROTEIN 4.9 g/dL (6.3-8.3)
[2018-07-20] MEDS: PROTONIX PO SCH ×2 (06:29→21:03)
[2018-07-20 06:35] LABS: CALCIUM 5.8 mg/dL (8.8-10.2); POTASSIUM 2.5 mmol/L (3.5-5.1)
[2018-07-20] MEDS: LIBRIUM PO SCH ×3 (08:24→16:51)
[2018-07-20] MEDS: NEUTRA-PHOS PO SCH ×4 (08:24→21:03)
[2018-07-20] MEDS: XIFAXAN PO SCH ×2 (08:24→22:46)
[2018-07-20] MEDS: NEURONTIN PO SCH ×2 (08:25→21:04)
[2018-07-20] MEDS: SSD CREAM TOP SCH ×2 (08:25→22:46)
[2018-07-20] MEDS: KLOR-CON PO SCH (08:25)
[2018-07-20] MEDS: MAG-OX PO SCH ×2 (08:25→21:04)
[2018-07-20] MEDS: NON-FORMULARY MED PR SCH ×2 (09:03→22:47)
[2018-07-20] MEDS ORDERED: TYLENOL PO PRN (12:13)
[2018-07-20] MEDS: CATAPRES PO SCH ×2 (12:18→21:04)
--- NOTE | 2018-07-20 12:56 | NEPHROLOGY PROGRESS NOTE ---
DATE: 07/20/2018 TIME SEEN: 0610. SUBJECTIVE: Mr. Pascal is resting quietly in bed. He is more awake and alert. States that he is feeling much better. OBJECTIVE: MOST RECENT VITAL SIGNS: Temperature is 99 degrees, blood pressure 126/94, heart rate 106, respirations are 12. He is on 4 L nasal cannula. Last recorded saturation 98%. He has had 5230 in, 1030 out to Orantes. LABORATORY DATA: Not available at the time of our visit, now available. Sodium 140, potassium 2.5, chloride 95, CO2 35, BUN 50, creatinine 3.1, glucose 232, anion gap is 10, calcium 5.8. Albumin is 2.5. Previous hemoglobin 9.4. PHYSICAL EXAMINATION: General: This is a 48-year-old white male resting quietly in bed. He is alert and oriented. Complains of right shoulder pain but has improved movement to the shoulder area in the last 24-48 hours. Bruising continues to be evident. HEENT: Normocephalic, atraumatic. Conjunctiva is pale pink. He has ELVA. Mucous membranes are moist. Neck: Supple. Trachea midline. No evidence of JVD. Cardiovascular: Regular rate and rhythm. S4 is present. He remains slightly tachycardic on the monitor. Lungs: Clear to auscultation bilaterally. Equal excursion on O2. Abdomen: Soft, nontender. Positive bowel sounds. Genitourinary: Not inspected. Orantes catheter is in place with adequate urine out. Extremities: Have no edema. No clubbing or cyanosis. Neurological: As mentioned above. ASSESSMENT AND PLAN: 1. Acute kidney injury. His creatinine has improved slightly today to 3.1 with a BUN of 50 with adequate urine output documented. At this point, no indications for intervention with dialysis. We will continue to monitor. 2. Electrolytes. These remain abnormal. His last phosphorus level had been low with replacement, albumin at 2.5. His potassium remains low. He was given potassium supplement p.o. along with potassium to his intravenous fluids. 3. Metabolic acidosis. This has resolved with iatrogenic metabolic alkalosis superimposed. This is slowly improving. I would like to thank you for allowing us to follow with this patient. Dictated by POLA Vasquez for Frankie Lugo MD Face to face encounter, data reviewed, discussed with Katelynn Cook on 07/20/18. I agree with the above assessment and plan of care. cc: POLA Vasquez MD [facility]
--- NOTE | 2018-07-20 14:19 | PROGRESS NOTE ---
DATE: 07/20/2018 SUBJECTIVE: This morning Mr. Pascal refers to be doing fairly okay. Denies any new complaints. Per the nursing staff, he has been tolerating his diet well. OBJECTIVE: Vital Signs: Blood pressure is 100/74, pulse of 73, respirations 16, temperature was 100.9. The patient was saturating about 98%. General: Mr. Pascal is a 48-year-old gentleman. He is in bed. He does not seem to be in any cardiopulmonary distress. HEENT: Mucosa is pink and moist. Anicteric. Acyanotic. Neck: Supple. Chest: Good air entry bilaterally. No crepitations, no rhonchi. Cardiovascular: Regular rate and rhythm. Gastrointestinal: Abdomen is soft, minimally distended, but nontender. Bowel sounds present. Extremities: No pedal edema. Distal pulses present. The right upper extremity has some minimal erythematous changes both medially and over the shoulder itself. Central Nervous System: Patient is awake, alert, oriented. There are some mild fine tremors on the fingers. LABORATORY DATA: Chemistry: Sodium is 140, potassium is 2.5, chloride 95, bicarb is 35, creatinine is down to 3.1. AST is slightly up to 275, ALT is 84. Creatine kinase is down to 10,240. CURRENT MEDICATIONS: Have all been reviewed. ASSESSMENT: 1. Severe high anion gap metabolic acidosis on presentation secondary to alcohol ketosis, improved. 2. Electrolyte abnormality associated with prolonged alcohol abuse (hypokalemia, hypophosphatemia). We will continue to replace. 3. Altered mental status on presentation secondary to global encephalopathy. No focalization. 4. Rhabdomyolysis. CK is on downward trend. We will continue with adequate hydration. 5. History of alcohol abuse. Patient is on Librium and gabapentin. 6. Acute kidney injury. Creatinine continues to be downward trend. Patient is making adequate urine. 7. Transaminitis secondary to alcohol-induced hepatitis with discriminant function for estimating disease of 20. Patient does not require steroid use. 8. Fatty liver on ultrasound, likely due to alcohol. PLAN: So, in general, I think Mr. Pascal is doing a lot better. He is going to be transferred from the ICU to regular medical floor. We will get PT to start working with him. We will continue with the withdrawal protocol. cc: Aren Licona MD
[2018-07-20] MEDS: ATIVAN IV PRN (21:04)
[2018-07-21] MEDS: POTASSIUM CHLORIDE 20 MEQ in D5 1/4 NS 1,000 ML IV SCH (02:16)
[2018-07-21] MEDS: LOPRESSOR IV SCH ×4 (03:47→22:56)
[2018-07-21] MEDS: PROTONIX PO SCH ×2 (07:01→18:03)
[2018-07-21 07:38] LABS: INR 1.23; PROTIME 16.5 Seconds (11.0-16.0)
[2018-07-21 07:45] LABS: BASO# 0.01 X1000 (0.0-0.2); BASO% 0.1 % (0.0-0.8); EOS# 0.06 X1000 (0.0-0.7); EOS% 0.5 % (0.0-10.0); HEMOGLOBIN 9.8 g/dL (14.0-18.0); IMM GRAN# 0.12 X1000 (0.0-0.04); LYMPH# 0.67 X1000 (1.2-3.4); LYMPH% 5.8 % (20.5-51.1); MCH 33.2 PG (27-31); MCHC 33.8 g/dL (33-37); MCV 98.3 FL (81-99); MONO# 1.55 X1000 (0.11-0.59); MONO% 13.3 % (1.7-9.3); MPV 11.5 FL (7.4-10.4); NEUT# 9.21 X1000 (1.4-6.5); NEUT% 79.3 % (42.2-75.2); PLT 95 X1000 (130-400); RBC 2.95 XMIL (4.7-6.1); RDW 12.2 % (11.5-14.5); WBC 11.62 X1000 (4.8-10.8)
[2018-07-21 08:06] LABS: ALB/GLOB RATIO 0.8; ALBUMIN 2.1 g/dL (3.5-5.0); CALCIUM 6.5 mg/dL (8.8-10.2); CREATININE 2.6 mg/dL (0.7-1.2); MAGNESIUM 1.3 mg/dL (1.5-2.7); PHOSPHORUS 0.6 mg/dL (2.7-4.5); POTASSIUM 3.4 mmol/L (3.5-5.1); TOTAL BILIRUBIN 1.21 mg/dL (0.20-1.00); TOTAL PROTEIN 4.9 g/dL (6.3-8.3)
[2018-07-21] MEDS ORDERED: POTASSIUM PHOSPHATE 60 MEQ in NS 250 ML IV ONE (08:10)
--- NOTE | 2018-07-21 09:23 | Diag Imaging Result Doc PS360 ---
EXAM: ABDOMEN FLAT/UPRIGHT HISTORY: abdominal distention TECHNIQUE: Flat and upright, two views COMPARISON: None. FINDINGS: No organomegaly. There are several mildly distended air-filled loops of small bowel. No foreign body. No abnormal abdominal calcifications. IMPRESSION: Possible ileus or early obstruction. Electronically signed by Breezy Butler 07/21/2018 9:20 AM
[2018-07-21] MEDS: NEUTRA-PHOS PO SCH ×4 (10:05→22:56)
[2018-07-21] MEDS: MAG-OX PO SCH ×2 (10:05→22:55)
[2018-07-21] MEDS: D5 NS + KCL 20 MEQ 1,000 ML IV SCH (10:05)
[2018-07-21] MEDS: XIFAXAN PO SCH ×2 (10:06→22:55)
[2018-07-21] MEDS: NEURONTIN PO SCH ×2 (10:06→22:55)
[2018-07-21] MEDS: CATAPRES PO SCH ×2 (10:06→22:56)
[2018-07-21] MEDS: SSD CREAM TOP SCH ×2 (10:06→23:05)
[2018-07-21] MEDS: LIBRIUM PO SCH ×3 (10:06→18:03)
[2018-07-21] MEDS: NON-FORMULARY MED PR SCH (10:07)
--- NOTE | 2018-07-21 13:34 | PROGRESS NOTE ---
DATE: 07/21/2018 SUBJECTIVE: This morning Mr. Pascal referred to be doing fairly okay. He seems to have some residual shortness of breath. OBJECTIVE: Vital Signs: Blood pressure 127/88, pulse of 109, respirations 16, and temperature 97.6 degrees. The patient was saturating 95% on 2 L. General: Mr. Pascal is a 50-year-old gentleman. He was in bed. He seems to be in mild respiratory distress. Mucosa is pink and moist. Anicteric. Acyanotic. Neck: Supple. Chest: Air entry is bilaterally reduced. There is a few distant crepitations in both lung cervantes. Cardiovascular: Regular rate and rhythm. Abdomen: Soft, distended. Minimally tender. Bowel sounds are present but hypoactive. Extremities: No pedal edema. Distal pulses present. 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 He does have some fine tremors. LABORATORY DATA: WBC is 11.62, hemoglobin is 9.8, and platelet count of 95,000. Chemistry is also reviewed. Sodium is 134, potassium is 3.4, chloride 93, and creatinine is down to 2.6. BUN is also down to 46. The patient's phosphorus is 0.6, magnesium is 1.3. AST and ALT also on downward trend. ASSESSMENT: 1. High anion gap metabolic acidosis on presentation resolved. 2. Alcohol ketosis improved. 3. Severe electrolyte abnormality associated with prolonged alcohol abuse. We will continue to replace. 4. Severe hypophosphatemia concerning for refeeding syndrome. We will continue to replace this accordingly. 5. Altered mental status on presentation secondary to metabolic encephalopathy improved. 6. Rhabdomyolysis. CK is on downward trend. 7. History of alcohol abuse. The patient is currently on Librium and gabapentin. 8. Acute kidney injury. The patient is making adequate urine. Creatinine is on downward trend. Nephrology is on board. 9. Transaminitis secondary to alcohol induced hepatitis. Discriminant function for estimating liver disease was 20. The patient does not require steroid use. 10. Fatty liver disease on ultrasound likely due to alcohol. 11. Leukocytosis with mild tachycardia. The patient also had temperature of 100.9 degrees yesterday at 11:30. This is all kind of concerning for possible infectious pathology. We are therefore going to do a chest x-ray and blood cultures. The patient also has had a Orantes catheter in there for some time so we will do a urine culture, and follow up accordingly. 12. Ileus associated with diarrhea. The patient is getting all the electrolytes including magnesium, phosphorus and potassium all replaced. We will also do cultures of the stool to rule out any potential infectious etiology. cc: Aren Licona MD
--- NOTE | 2018-07-21 13:59 | NEPHROLOGY PROGRESS NOTE ---
DATE: 07/21/2018 SUBJECTIVE: He is lying flat in bed. He complains of abdominal distention this morning. No nausea, vomiting, or shortness of breath. OBJECTIVE: Vital Signs: Blood pressure 128/103, heart rate 124, respirations 27, afebrile. General: He is lying flat. No acute distress. He is able to move his right arm. HEENT: Oropharynx is moist. Neck: Supple. Neck veins are not distended. Heart: Regular and tachycardic. Lungs: Have equal breath sounds. Abdomen: Somewhat distended but soft. Minimally tender. Bowel sounds are present. Extremities: I have no edema, clubbing, or cyanosis. IMPRESSION: 1. Acute kidney injury. Continues to improve. 2. Electrolyte abnormalities. Hypokalemia is improving but he has rather significant hypophosphatemia today. Will replace. 3. Abdominal distention. We will check flat and upright abdomen films. cc: Frankie Lugo MD
[2018-07-21] MEDS: VANCOMYCIN ORAL SOLN PO SCH ×2 (16:34→23:05)
[2018-07-21 17:46] LABS: URINE SOURCE CATH
[2018-07-21 17:53] LABS: BILIRUBIN URINE NEGATIVE (NEGATIVE); BLOOD URINE MODERATE (NEGATIVE); COLOR YELLOW; GLUCOSE URINE 500 mg/dL (NEGATIVE); KETONE URINE NEGATIVE (NEGATIVE); LEUKOCYTES URINE NEGATIVE (NEGATIVE); NITRITE URINE NEGATIVE (NEGATIVE); PROTEIN URINE 50 mg/dL (NEGATIVE); SP GRAVITY URINE 1.006; TURBIDITY URINE CLEAR (CLEAR); UROBILINOGEN URINE NORMAL (NORMAL)
[2018-07-21 17:59] LABS: UR EPITHELIAL CELLS <10 /HPF (<10); URINE BACTERIA NEGATIVE /HPF; URINE WBC <10 /HPF (<10)
[2018-07-21 18:09] LABS: URINE YEAST NONE SEEN
[2018-07-21 18:10] LABS: URINE CASTS NONE SEEN; URINE CRYSTALS NONE SEEN; URINE SMALL ROUND CELLS RENAL PRESENT
[2018-07-22] MEDS: VANCOMYCIN ORAL SOLN PO SCH ×4 (01:57→21:20)
[2018-07-22] MEDS: D5 NS + KCL 20 MEQ 1,000 ML IV SCH (01:57)
[2018-07-22] MEDS: LOPRESSOR IV SCH ×4 (03:58→21:21)
[2018-07-22 07:40] LABS: BASO# 0.01 X1000 (0.0-0.2); BASO% 0.1 % (0.0-0.8); EOS# 0.09 X1000 (0.0-0.7); EOS% 0.8 % (0.0-10.0); HEMATOCRIT 25.4 % (42.0-52.0); HEMOGLOBIN 8.3 g/dL (14.0-18.0); IMM GRAN# 0.03 X1000 (0.0-0.04); IMM GRAN% 0.3 % (0.0-0.5); LYMPH# 0.53 X1000 (1.2-3.4); LYMPH% 4.6 % (20.5-51.1); MCH 32.8 PG (27-31); MCHC 32.7 g/dL (33-37); MCV 100.4 FL (81-99); MONO# 1.23 X1000 (0.11-0.59); MONO% 10.7 % (1.7-9.3); MPV 11.9 FL (7.4-10.4); NEUT# 9.65 X1000 (1.4-6.5); NEUT% 83.5 % (42.2-75.2); PLT 111 X1000 (130-400); RBC 2.53 XMIL (4.7-6.1); RDW 12.6 % (11.5-14.5); WBC 11.54 X1000 (4.8-10.8)
[2018-07-22 08:04] LABS: CREATININE 2.4 mg/dL (0.7-1.2); POTASSIUM 3.7 mmol/L (3.5-5.1)
[2018-07-22 08:06] LABS: CALCIUM 6.6 mg/dL (8.8-10.2)
[2018-07-22] MEDS ORDERED: POTASSIUM PHOSPHATE 30 MEQ in NS 250 ML IV ONE (08:25)
[2018-07-22 09:53] LABS: HEPATITIS PROFILE ACUTE SEE COMMENTS
--- NOTE | 2018-07-22 10:17 | Diag Imaging Result Doc PS360 ---
EXAM: CHEST-2 VIEWS HISTORY: hypoxia TECHNIQUE: Two views COMPARISON: 07-16-18 FINDINGS: The lungs are poorly expanded. The heart is not enlarged. The vessels are not distended. Questionable base infiltrates. Small to moderate pleural effusions. IMPRESSION: Pleural effusions and basilar atelectasis with questionable underlying infiltrates. Electronically signed by Breezy Butler 07/22/2018 10:15 AM
[2018-07-22] MEDS: LIBRIUM PO SCH ×3 (10:23→18:01)
[2018-07-22] MEDS: NEUTRA-PHOS PO SCH ×4 (10:23→21:20)
[2018-07-22] MEDS: PROTONIX PO SCH ×2 (10:23→21:20)
[2018-07-22] MEDS: NEURONTIN PO SCH ×2 (10:23→21:21)
[2018-07-22] MEDS: MAG-OX PO SCH ×2 (10:23→21:21)
[2018-07-22] MEDS: SSD CREAM TOP SCH ×2 (10:35→21:21)
[2018-07-22] MEDS: CATAPRES PO SCH ×2 (10:35→21:20)
[2018-07-22] MEDS: XIFAXAN PO SCH ×2 (10:55→21:20)
[2018-07-22] MEDS ORDERED: LASIX IV ONE (14:02)
--- NOTE | 2018-07-22 14:23 | PROGRESS NOTE ---
DATE: 07/22/2018 SUBJECTIVE: This morning, Mr. Pascal refers to be feeling fairly okay. He said he has not had any more bowel movement. He is still working on the strength of the right upper extremity. OBJECTIVE: Vital signs: Blood pressure is 138/76, pulse is 103, respirations 16, temperature 98.4 degrees. The patient is saturating 99% on room air. General: Mr. Pascal is a 48-year-old male. He is in bed. Does not seem to be in any cardiopulmonary distress. HEENT: Mucosa is pink and moist. Anicteric. Acyanotic. Neck: Supple. Chest: Air entry is bilaterally reduced. There are some crepitations in the posterior lung cervantes. Cardiovascular: Regular rate and rhythm. There is no murmurs, no rubs, no gallops. Gastrointestinal: Abdomen is soft, distended. Seems slightly tight. Bowel sounds are hypoactive. Extremities: No pedal edema. Distal pulses are present. Central nervous system: Patient is awake, alert, and oriented. There is a mild tremor. Musculoskeletal: There are some erythematous changes over the right upper axillary to the medial aspect of the shoulder. Ms. LABORATORY DATA: WBC is 11.54, hemoglobin is 8.3, platelet count of 111,000. Chemistry is also reviewed. Creatinine is down to 2.4, calcium is 6.2, magnesium is 2.0. The patient's intake and output, urine output was 1090. The patient is currently positive balance of 16,509. A chest x-ray this morning shows pleural effusion and bibasilar atelectasis with questionable underlying infiltrates. Stool studies which was done yesterday shows stool white cell count moderate, C difficile toxin positive. ASSESSMENT: 1. High anion gap metabolic acidosis due to alcohol ketosis, resolved. 2. Severe hypophosphatemia concerning for refeeding syndrome, improved with replacement. 3. Altered mental status on presentation secondary to metabolic encephalopathy, improved. 4. Rhabdomyolysis. CK on downward trend. 5. History of alcohol abuse. The patient is on Librium and gabapentin. 6. Acute kidney injury. Creatinine continues to be on downward trend. The patient is currently now fluid overloaded. We are going to discontinue the IV fluids and give him a dose of 40 mg Lasix. 7. Transaminitis secondary to alcohol-induced hepatitis. 8. Fatty liver disease. 9. Clostridium difficile colitis associated with ileus. The patient has been started on p.o. vancomycin. This morning, abdomen feels were remarkably tighter, so we are going to do a CT of the abdomen with oral contrast to rule out any mechanical obstruction. We will also do a CT scan of the chest to rule out any ongoing pneumonia. A chest x-ray was not conclusive. cc: Aren Licona MD
--- NOTE | 2018-07-22 17:11 | Diag Imaging Result Doc PS360 ---
EXAM: CT THORAX W/O CONTRAST HISTORY: hypoxemia. ? HAP TECHNIQUE: CT chest without contrast COMPARISON: None. FINDINGS: There are moderate-sized bilateral pleural effusions measuring approximately 4.5 cm posteriorly in the midline. The heart is not enlarged. No thoracic aortic aneurysm. Prominent atherosclerosis. There are multiple calcified mediastinal and hilar nodes with scattered granuloma. Prominent atelectasis to each lower lobe. There may be underlying pneumonia as well. IMPRESSION: Moderate-sized pleural effusions with lower lobe atelectasis and possibly underlying infiltrates This exam was performed using automated exposure control, adjustment of mA or kV according to patient size, and/or use of iterative reconstruction technique. Electronically signed by Breezy Butler 07/22/2018 5:09 PM
--- NOTE | 2018-07-22 17:24 | Diag Imaging Result Doc PS360 ---
EXAM: CT ABD/PELVIS W/ORAL CONT ONLY HISTORY: ilueus with mech obstruction TECHNIQUE: CT abdomen and pelvis with oral contrast only COMPARISON: None. FINDINGS: No focal hepatic normality identified on this noncontrasted exam. The gallbladder is contracted. No calcified stones. Normal spleen and adrenal glands. There is a [id number] amount of ascites. There is edema about the pancreas. No pancreatic calcifications. No well-defined pseudocyst. No renal stones. No hydronephrosis. Moderate atherosclerosis. No aortic aneurysm. The bowel loops are not dilated. Oral contrast has passed through the small bowel and entered the colon. There are scattered colonic diverticula. No abscess. There is a Orantes catheter within the urinary bladder. There is body wall edema. IMPRESSION: 1.Suspect pancreatitis. 2.No bowel obstruction 3.Ascites This exam was performed using automated exposure control, adjustment of mA or kV according to patient size, and/or use of iterative reconstruction technique. Electronically signed by Breezy Butler 07/22/2018 5:22 PM
[2018-07-23] MEDS: LOPRESSOR IV SCH ×4 (03:16→22:11)
[2018-07-23] MEDS: VANCOMYCIN ORAL SOLN PO SCH ×4 (03:16→22:12)
[2018-07-23 07:57] LABS: BASO# 0.01 X1000 (0.0-0.2); BASO% 0.1 % (0.0-0.8); EOS# 0.05 X1000 (0.0-0.7); EOS% 0.3 % (0.0-10.0); HEMOGLOBIN 7.7 g/dL (14.0-18.0); IMM GRAN# 0.13 X1000 (0.0-0.04); IMM GRAN% 0.8 % (0.0-0.5); LYMPH# 0.53 X1000 (1.2-3.4); LYMPH% 3.5 % (20.5-51.1); MCH 32.9 PG (27-31); MCHC 32.1 g/dL (33-37); MCV 102.6 FL (81-99); MONO# 1.17 X1000 (0.11-0.59); MONO% 7.6 % (1.7-9.3); MPV 11.9 FL (7.4-10.4); NEUT# 13.42 X1000 (1.4-6.5); NEUT% 87.7 % (42.2-75.2); PLT 161 X1000 (130-400); RBC 2.34 XMIL (4.7-6.1); RDW 13.6 % (11.5-14.5); WBC 15.31 X1000 (4.8-10.8)
[2018-07-23 07:59] LABS: ALB/GLOB RATIO 0.6; ALBUMIN 1.8 g/dL (3.5-5.0); CALCIUM 7.3 mg/dL (8.8-10.2); CREATININE 2.4 mg/dL (0.7-1.2); MAGNESIUM 1.2 mg/dL (1.5-2.7); PHOSPHORUS 3.1 mg/dL (2.7-4.5); POTASSIUM 4.4 mmol/L (3.5-5.1); TOTAL BILIRUBIN 0.94 mg/dL (0.20-1.00); TOTAL PROTEIN 4.7 g/dL (6.3-8.3)
[2018-07-23 08:28] LABS: BANDS 2 % (0-1); LYMPHS 5 % (21-51); MONO 5 % (1-9); SEGS 88 % (42-75)
[2018-07-23] MEDS: NEUTRA-PHOS PO SCH ×4 (08:44→22:10)
[2018-07-23] MEDS: XIFAXAN PO SCH ×2 (08:45→22:11)
[2018-07-23] MEDS: MAG-OX PO SCH ×2 (08:45→22:11)
[2018-07-23] MEDS: LIBRIUM PO SCH ×3 (08:45→17:08)
[2018-07-23] MEDS: NEURONTIN PO SCH ×2 (08:45→22:12)
[2018-07-23] MEDS: CATAPRES PO SCH ×2 (08:45→22:12)
[2018-07-23] MEDS: PROTONIX PO SCH ×2 (08:45→22:12)
[2018-07-23] MEDS: SSD CREAM TOP SCH ×2 (11:05→22:17)
[2018-07-23] MEDS: ALBUMIN 25% IV SCH (11:06)
[2018-07-23] MEDS ORDERED: MERREM 1 GM in NS 50 ML IV SCH (12:00)
[2018-07-23] MEDS ORDERED: MAGNESIUM SULFATE 4 GM/S.W.I. 4 GM/100 ML IVPB IV ONE (12:11)
--- NOTE | 2018-07-23 13:13 | PROGRESS NOTE ---
DATE: 07/23/2018 SUBJECTIVE: This morning, Mr. Pascal refers to be slightly upset because he has been kept NPO since yesterday in the evening. Otherwise, he seems to be doing okay. He is still having some loose bowels, five documented today. OBJECTIVE: Vital Signs: Blood pressure is 101/57, pulse of 95, respirations are 16, temperature is 98.9 degrees. General Examination: Mr. Pascal is a 48-year-old, male. He is in bed. He does not seem to be in distress. HEENT: Mucosa is pink and moist. Anicteric. Acyanotic. Neck: Supple. Chest: Air entry is bilaterally reduced. There are still some crepitations in the posterior lung cervantes. Cardiovascular: Regular rate and rhythm. No murmurs, no rubs, no gallops. GI: Abdomen is soft, is distended, is kind of tight. Bowel sounds are present but extremely hypoactive. Extremities: About 2+ pedal edema. There is also edema on the lateral aspect of the thighs and the abdominal wall. PREFITTER: The patient is awake, alert, oriented. I did not see any tremors today. Musculoskeletal: The patient has some erythematous changes over the right axillary to the medial aspect of the shoulder. The right upper extremity has some weakness. He is, however, able to lift it against gravity but not sustaining it for that long. Laboratory Data: WBC has gone up to 15.31, hemoglobin is 7.7, platelet count has improved to 161,000. There is only 2% of bands on the peripheral smear. Chemistry is also reviewed. BUN is down to 44, creatinine is stabilized at 2.4. The calcium is better. Phosphorus has normalized. Magnesium is getting replaced. Liver enzymes are on the downward trend. The patient's CK is down to 626. C-reactive protein is ridiculously high. It is 103.4. Lipase is coming down some. A CT scan of the abdomen and pelvis which was done yesterday shows suspicion of pancreatitis. There was no bowel obstruction. There is some ascites. ASSESSMENT: 1. High gap metabolic acidosis on presentation due to alcohol ketosis, resolved. 2. Severe hypophosphatemia, concerning for refeeding syndrome, improved with replacement. 3. Altered mental status on presentation secondary to metabolic encephalopathy, improved. 4. Rhabdomyolysis. CK is getting better. 5. History of severe alcohol abuse. Patient did show signs of withdrawal in the intensive care unit and on the floor. He is currently on Librium and gabapentin. Seems to be getting better. 6. Acute kidney injury. Creatinine has normalized at around 2.4 for the past 2 days. The patient continues to make adequate urine, 2350 out yesterday. Patient is still remarkably fluid overloaded of 16,859 during the hospital course. Intravenous fluid has been discontinued. 7. Alcohol-induced hepatitis. 8. Fatty liver disease on imaging, likely due to alcohol abuse. 9. Clostridium difficile colitis associated with ileus. The patient is currently on oral vancomycin. We have added intravenous metronidazole because of concern that the vancomycin alone might not suffice because of the ileus. 10. Acute pancreatitis, presumably from alcohol abuse. The patient's abdomen is still tight. It is associated with an ileus. We will get gastroenterology to evaluate and give us some more recommendation. Patient has been fluid resuscitated. He is currently positive fluid balance so fluid has been withheld. 11. Fluid overload, likely due to an attempt at resuscitation. The patient's albumin is also low, so we are going to give him albumin to help pull some of the fluid into the intravascular space. 12. Electrolyte abnormalities including hypomagnesemia. We will replace this. Hopefully, that also helps with the ileus. 13. Lower lobe infiltrate, concerning for pneumonia. The patient's white cell counts are going up, still remains symptomatic. We are going to cover him for possible pneumonia. We started him on meropenem and we will get infectious disease to evaluate him. PLAN: In general, Mr. Pascal is pretty critical. He continues to have a right upper extremity monoparesis which initially we thought it was related to the rhabdomyolysis. An initial CT scan of the head was unremarkable. We are going to repeat one more to make sure this is not as a result of a stroke. We will also replace all the electrolyte abnormalities. We found out that Mr. Pascal might have acute pancreatitis. I am not sure what spectrum of the disease that we caught it. He is currently fluid overloaded, has an ileus, and his C. difficile is positive. We are going to get ID to evaluate him because of what appears to be complicated C. difficile infection associated with possibly pneumonia. We will also get GI to see him for the complicated acute pancreatitis. cc: Aren Licona MD
[2018-07-23] MEDS: FLAGYL 250 MG/NS 250 MG/50 ML IVPB IV SCH ×2 (13:20→14:36)
--- NOTE | 2018-07-23 14:31 | Diag Imaging Result Doc PS360 ---
EXAM: CT HEAD W/O CONTRAST INDICATION: encephalopathy TECHNIQUE: This exam was performed using automated exposure control, adjustment of mA or kV according to patient size, and/or use of iterative reconstruction technique. COMPARISON: 07/16/2018 FINDINGS: There is stable mild diffuse brain atrophy. There is no definite acute infarct given the limited sensitivity of CT versus MRI. There is no discrete intracranial mass, mass effect, or intracranial hemorrhage. The surrounding soft tissues and bony structures are essentially unremarkable. IMPRESSION: Stable mild diffuse brain atrophy. No definite acute intracranial pathology. Electronically signed by Victoriano Fay 07/23/2018 2:28 PM
--- NOTE | 2018-07-23 15:40 | INFECTIOUS DISEASE CONSULT REP ---
DATE: 07/23/2018 CONCLUSION: 1. The patient has Clostridium difficile diarrhea. 2. Patient also may have a bibasilar pneumonia. 3. Finally the patient has pancreatitis as seen on CT scan of the abdomen. 4. Patient has 1 blood culture positive for a coagulase-negative Staphylococcus. This is a contaminant. RECOMMENDATIONS: I agree with treating the patient with p.o. vancomycin and IV Flagyl. I have changed the dose of the IV Flagyl to 500 mg IV every 8 hours. I further agree with using meropenem for the patient's pancreatitis and possible pneumonia. The patient has ascites and he appears to be an alcoholic and I think it is possible that he could have a spontaneous bacterial peritonitis as well. He does have pleural effusions, but I doubt at this time that they are empyemas. The 1 positive blood culture for coagulase-negative Staphylococcus is, as mentioned above, a contaminant, and therefore, it does not require antibiotic treatment. DISCUSSION: The patient tells me that he has had fatigue and shallow breathing along with diarrhea for the past 6 months. He did not have fever. He did not have dysuria and he had not had nausea or vomiting. His studies thus far show a CBC with a white count of 15,310, hemoglobin 7.7, and platelet count of 161,000. Creatinine is 2.4, GFR is 29. CK is 626. Hepatitis panel is nonreactive. Clostridium difficile toxin is positive. Stool culture is negative. One of the patient's blood cultures grew a coagulase-negative Staphylococcus. This I think is a contaminant. The other blood cultures are sterile. The urine culture is sterile. CT scan of the abdomen and pelvis shows pancreatitis, ascites, and diverticulosis. CT scan of the thorax shows pleural effusions and bibasilar atelectasis with possible underlying infiltrates. PAST MEDICAL HISTORY/REVIEW OF SYSTEMS: Eyes and ears: He says he sees and hears okay. Neck: No stiffness. Respiratory: See Present Illness. Gastrointestinal: See Present Illness. Genitourinary: No dysuria or flank pain. Bones, joints, muscles: No swollen joints or muscle aches. Endocrine: He is not a diabetic, and he does not have thyroid disease. Neurological: The patient is not having seizures. He has not lost any motor or sensory function. PREVIOUS HOSPITALIZATIONS AND OPERATIONS: He has had arthroscopy of the left knee. MEDICAL DISEASES: Positive for hypertension and osteoarthritis of the knee. INFECTIOUS DISEASE HISTORY: Negative for pneumonia and UTI. FAMILY HISTORY: Positive for diabetes mellitus, hypertension, and myocardial infarction. SOCIAL HISTORY: [place] mother. The patient is . He tells me he stopped smoking cigarettes 2 months ago, and he stopped drinking alcoholic beverages 2 weeks ago. He does not abuse drugs. He has a dog for a pet. He is unemployed. PHYSICAL EXAMINATION: Vital Signs: Temperature is 99.1 degrees, pulse 93, respirations 18, blood pressure 114/68. Height/weight: The patient is 5 feet 8 inches tall and weighs 164 pounds. General: This is an ill-appearing middle-aged male. He is in no acute distress. Head, Eyes, Ears, Nose, and Throat: He can hear my spoken words and see near objects. He has poor oral hygiene. Neck: No meningismus. Lungs: Clear to auscultation. Cardiovascular: Heart rate is regular. Abdomen is soft. There was no tenderness to light palpation. Bowel sounds were present. The abdomen seems protuberant. Neurologic: The patient is awake. He had a little bit of trouble moving his right arm. He told me it would hurt him when he moved it, but he can move both arms and both legs. There is no tremor. His memory as regarding his medical history seemed intact. Integument: No rash noted. Thank you for the consult. cc: Naman Goldberg MD
[2018-07-23] MEDS ORDERED: M.V.I.-12 10 ML, FOLIC ACID 1 MG, MAGNESIUM SULFATE 1 GM, THIAMINE 100 MG in NS 1,000 ML IV SCH (17:00)
[2018-07-23] MEDS: FLAGYL 500 MG/NS 500 MG/100 ML IVPB IV SCH ×2 (17:07→22:28)
[2018-07-23] MEDS: NS 1,000 ML IV SCH (18:13)
[2018-07-23] MEDS: CALMOSEPTINE OINTMENT TOP PRN (18:14)
--- NOTE | 2018-07-23 21:01 | GASTROENTEROLOGY CONSULTATION ---
DATE: 07/23/2018 REQUESTING PHYSICIAN: Dr. Licona. REASON FOR CONSULTATION: Alcoholic pancreatitis. HISTORY OF PRESENT ILLNESS: Mr. Pascal is a 48-year-old male who was admitted on 07/08/2018 for altered mental status. The patient was seen in his room in the presence of his mother and father who were present at bedside. The patient felt weak for weeks and that prompted him to come to the hospital and based on the records, he was confused on admission. The patient was diagnosed with severe dehydration, alcohol withdrawal and encephalopathy. The patient has a history of heavy alcohol abuse. He drinks whiskey. His last drink was the day before admission. He has been a heavy smoker for many years. During the hospital course he developed ileus. He does complain of abdominal pain and workup in the hospital showed evidence of alcoholic pancreatitis. During the admission he was also diagnosed with rhabdomyolysis likely related to recent falls before admission, elevated liver enzymes attributed to alcoholic hepatitis. He was diagnosed with C difficile colitis and is on oral vancomycin under the care of Dr. Goldberg. According to the patient, he has never had pancreatitis before. He was given fluids for a few days on admission, but after a positive balance, the fluids were withheld and that caused possibly worsening abdominal discomfort. Gastroenterology consulted for further management. PAST MEDICAL HISTORY: Hypertension, alcohol abuse, chronic smoker. PAST SURGICAL HISTORY: None. ALLERGIES: No known drug allergies. SOCIAL HISTORY: He is . He has two kids. He lives with his parents. He smokes 1/2 pack a day for many years. He drinks whiskey every day. He mixes whiskey with Gatorade in order to pretend that he is not drinking alcohol. REVIEW OF SYSTEMS: Denies any fevers, rigors, chills, chest pain, no shortness of breath. Does complain of abdominal pain in the periumbilical region. He denies any nausea, vomiting, passing blood in the stools. He is moving his bowel which are soft liquid. He is tolerating liquids well. He has a history of feeling weak and tired and he is sore more recently because of recurrent falls and rhabdomyolysis. He had altered mental status on admission, which is improving. He still responds, is a little slow to respond to any questions. PHYSICAL EXAMINATION: Vital Signs: Temperature 98.2, pulse of 111, respirations 18, blood pressure 147/88, saturating 97% on 2 L nasal cannula. Body weight of 164 pounds 7 oz. BMI 25 kg. General: moderately built, moderately nourished male lying in bed in no acute distress. HEENT: Pale conjunctiva. No icterus. Nasal cannula in place. Pupils equal, reactive to light. Neck: Supple. Abdomen: Distended. Discomfort in the periumbilical region. No rebound or guarding. Extremities: No cyanosis, clubbing. Neurologic: He is awake and alert, answers questions. LABORATORIES: Hemoglobin and hematocrit is 7.7 and 24, white count of 15.3, platelet count of 161,000. Sodium 137, potassium 4.4, chloride 99, bicarb of 39, with a BUN of 41, creatinine of 2.4. Glucose of 170, calcium 7.3. Phosphorus 3.1, magnesium 1.2, total bilirubin is 0.94, AST 65, ALT 50, alkaline phosphatase 130. Total protein 4.7, albumin 1.8. CRP is 103.48. Lipase of 394. INR 1.23, PTT of 16.5. Urinalysis showing positive protein, positive glucose, moderate blood. Hepatitis panel was nonreactive. Urine culture showed no growth. Blood culture x 2 no growth after 48 hours. Stool studies showed white cells moderate and stool culture no enteric pathogen. Preliminary studies stool C difficile toxin is positive. Blood culture on admission on 07/16 showed coag-negative Staph and the 2nd set of blood culture on 07/21/2018 was negative. Imaging in the form of abdomen and pelvis CT done 07/22/2018 showed gallbladder is contracted. No calcified stones. Small to moderate amount of ascites. There is edema about the pancreas. No pancreatic calcification. No well-defined pseudocyst. Moderate atherosclerosis. No aortic aneurysm. Oral contrast has passed through the small bowel and to the colon. There are scattered colonic diverticula. No abscess. There is a Orantes catheter within the urinary bladder that has moderate edema. Ultrasound done on 07/08/2018 showed fatty liver. Common bile duct measuring [address] done on 07/23 showed stable mild diffuse brain atrophy. No definitive acute intracranial pathology. IMPRESSION AND PLAN: 1. Alcoholic pancreatitis. In this regard, he will be started on fluids. We will recheck his lipase tomorrow. Will follow his labs closely. 2. Alcoholism. We will start him on banana bag once daily. He is on Librium 25 mg p.o. t.i.d. to treat alcohol withdrawal per the primary team. 3. Alcohol withdrawal. He is improving. He continues on Librium 25 mg p.o. t.i.d. 4. C difficile colitis with positive C difficile toxin. Continue oral vancomycin 250 mg p.o. q.6 hours started on 07/21/2018. We will add Culturelle 1 capsule p.o. b.i.d. for 6 weeks. 5. Malnutrition hypoalbuminemia. He is Ensure and clear liquid diet. We will watch his albumin. 6. Alcohol abuse. Patient counseled to quit alcohol completely. 7. Tobacco abuse. Patient counseled to quit smoking completely. 8. He is getting a dose of albumin IV for a few days per the primary team. 9. Electrolyte imbalance. This is being treated by the primary team. 10. GI prophylaxis with Protonix twice daily. 11. Hepatic encephalopathy with elevated ammonia of 158 on admission, which is now corrected. He continues Xifaxan 550 mg p.o. b.i.d. 12. Coag-negative Staph on one blood culture on admission. He is on antibiotics per primary team. 13. Fatty liver on imaging likely secondary to alcohol abuse. Patient counseled to quit smoking and alcohol completely. 14. Left lower lobe infiltrate on admission concerning for pneumonia. He is on antibiotics in the form of meropenem. 15. Will follow along. The above plans discussed with the patient and family at bedside. All questions answered. Please call us with any further questions. cc: Ben Simental MD [facility]
[2018-07-23] MEDS: CULTURELLE PO SCH (22:28)
[2018-07-23] MEDS: MERREM 1 GM in NS 50 ML IV SCH (23:35)
--- NOTE | 2018-07-24 00:47 | Extremity Venous Study ---
PROCEDURE NAME: Venous U/S Right Arm - 07/23/2018 PROCEDURE NAME: Right upper extremity venous duplex. REFERRING PHYSICIAN: Aren Licona MD. READING PHYSICIAN: Alec Pope MD. RIVETER HAND: Kim Hunt RVT. INDICATION: Right arm swelling, pain and redness. FINDINGS: The deep and superficial veins of the right upper extremity were imaged throughout their course. They are compressible, patent and without thrombus. INTERPRETATION: There is no DVT or SVT of the right upper extremity. cc: Alec Pope MD
[2018-07-24] MEDS: VANCOMYCIN ORAL SOLN PO SCH ×4 (03:19→20:56)
[2018-07-24] MEDS: LOPRESSOR IV SCH ×4 (03:19→20:56)
[2018-07-24] MEDS: NS 1,000 ML IV SCH ×2 (04:56→15:16)
[2018-07-24] MEDS: FLAGYL 500 MG/NS 500 MG/100 ML IVPB IV SCH ×3 (06:15→23:04)
[2018-07-24 07:43] LABS: BASO# 0.01 X1000 (0.0-0.2); BASO% 0.1 % (0.0-0.8); EOS# 0.04 X1000 (0.0-0.7); EOS% 0.3 % (0.0-10.0); HEMATOCRIT 21.9 % (42.0-52.0); IMM GRAN# 0.07 X1000 (0.0-0.04); IMM GRAN% 0.6 % (0.0-0.5); LYMPH# 0.58 X1000 (1.2-3.4); LYMPH% 4.6 % (20.5-51.1); MCV 103.3 FL (81-99); MONO# 1.06 X1000 (0.11-0.59); MONO% 8.4 % (1.7-9.3); MPV 11.4 FL (7.4-10.4); NEUT# 10.85 X1000 (1.4-6.5); PLT 176 X1000 (130-400); RBC 2.12 XMIL (4.7-6.1); RDW 13.7 % (11.5-14.5); WBC 12.61 X1000 (4.8-10.8)
[2018-07-24 07:50] LABS: BANDS 4 % (0-1); LYMPHS 2 % (21-51); MONO 12 % (1-9); SEGS 80 % (42-75)
[2018-07-24 08:00] LABS: ALBUMIN 2.3 g/dL (3.5-5.0); CALCIUM 7.9 mg/dL (8.8-10.2); CREATININE 1.9 mg/dL (0.7-1.2); PHOSPHORUS 3.7 mg/dL (2.7-4.5)
[2018-07-24 08:02] LABS: AGAP 10; ALB/GLOB RATIO 1.1; ALBUMIN 2.3 g/dL (3.5-5.0); ALKALINE PHOSPHATASE 104 U/L (32-122); BUN 33 mg/dL (8-22); CALCIUM 7.8 mg/dL (8.8-10.2); CHLORIDE 100 mmol/L (98-107); CHOLESTEROL 75 mg/dL (0-200); COSMO 290; CREATININE 1.9 mg/dL (0.7-1.2); ESTIMATED GFR 38; GLUCOSE 131 mg/dL (70-104); GOT 44 U/L (10-34); GPT 37 U/L (10-44); HDL 11 mg/dL (35-55); LDL 38 mg/dL; PHOSPHORUS 3.7 mg/dL (2.7-4.5); POTASSIUM 4.1 mmol/L (3.5-5.1); SODIUM 141 mmol/L (136-145); TCO2 31 mmol/L (25-35); TOTAL BILIRUBIN 1.18 mg/dL (0.20-1.00); TOTAL PROTEIN 4.3 g/dL (6.3-8.3); TRIGLYCERIDES 132 mg/dL (39-160); VLDL 26 mg/dL
[2018-07-24] MEDS: XIFAXAN PO SCH ×2 (09:13→23:04)
[2018-07-24] MEDS: MAG-OX PO SCH (09:13)
[2018-07-24] MEDS: PROTONIX PO SCH (09:13)
[2018-07-24] MEDS: CATAPRES PO SCH (09:13)
[2018-07-24] MEDS: LIBRIUM PO SCH ×3 (09:13→17:22)
[2018-07-24] MEDS: NEURONTIN PO SCH (09:13)
[2018-07-24] MEDS: CULTURELLE PO SCH ×2 (09:14→20:58)
[2018-07-24] MEDS: NEUTRA-PHOS PO SCH (09:14)
[2018-07-24] MEDS: ALBUMIN 25% IV SCH (09:15)
[2018-07-24] MEDS: SSD CREAM TOP SCH ×2 (09:17→20:59)
[2018-07-24 10:12] LABS: C REACTIVE PROT QUANT 110.68 mg/L (0.00-5.00)
--- NOTE | 2018-07-24 11:19 | NEPHROLOGY PROGRESS NOTE ---
DATE: 07/24/2018 SUBJECTIVE: Patient is sitting up in bed. Complaining of some pain to his right arm. He has had continued swelling. OBJECTIVE: Vital Signs: Temperature 97.9 degrees, pulse 100, respiratory rate 18, blood pressure 134/55. Intake 1.9 L. Output 2.5 L. PHYSICAL EXAMINATION: General: Chronically ill-appearing, middle-aged gentleman resting in bed. He is in no acute distress. HEENT: Normocephalic, atraumatic. Oral mucosa moist. Neck: Supple without JVD. Cardiovascular: Tachycardic. No murmur. Pulmonary: Decreased breath sounds. No wheezes. Abdomen: Distended. Hypoactive bowel sounds. : Orantes catheter noted. Extremities: Continues with edema to the right upper extremity. He has trace edema lower extremities. Integumentary: Skin is with no erythema, no ecchymoses. Warm and dry. LAB DATA: Hemoglobin 7.0, potassium 4.1, CO2 31, creatinine 1.9 (2.4). ASSESSMENT AND PLAN: 1. Acute kidney injury. Modest improvement with renal function overnight. No indications for intervention other than current treatment plan. Continue to monitor. 2. Electrolyte abnormalities. Potassium in target today. His phosphorus is 3.7 today. 3. Clostridium difficile followed by primary and GI on appropriately dosed antibiotics. 4. Alcoholic pancreatitis. He has been started on fluids. He is being followed by GI. Monitor closely. Dictated by POLA Roberts for Frankie Lugo MD Face to face encounter, data reviewed, discussed with Juan Reece on 07/24/18. I agree with the above assessment and plan of care. cc: Frankie Lugo MD [facility]
[2018-07-24] MEDS: MERREM 1 GM in NS 50 ML IV SCH ×2 (11:48→23:04)
[2018-07-24 11:56] LABS: INR 1.18
--- NOTE | 2018-07-24 11:57 | GASTROENTEROLOGY PROGRESS NOTE ---
DATE: 07/24/2018 SUBJECTIVE: The patient is resting in bed. He is complaining of feeling weak. He has complained of abdominal distention. He was able to eat his meal this morning. He was able to have a bowel movement today. He denies any fevers, rigors, or chills. PHYSICAL EXAMINATION: Vital Signs: Temperature of 98.3 degrees, pulse rate of 91, respiratory rate of 18, blood pressure 120/75, saturating 92% on 4 L nasal cannula. Body weight of 164 pounds and 7 ounces. BMI 25 kg/m2. General Appearance: Thinly built, lying in bed, in no acute distress. HEENT: Pale conjunctivae. No icterus. Nasal cannula in place. Neck: Supple. Abdomen: Distended. Discomfort in the pelvic region. No rebound. Extremities: No cyanosis or clubbing. Neurologic: He is awake, alert, oriented x3. LABORATORY DATA: Hemoglobin and hematocrit are 7 and 21.9, white count of 12.61, platelet count 176,000. Sodium of 139, potassium 4, chloride 98, bicarb 30, anion gap 11, BUN of 32, creatinine 1.9, glucose of 129, calcium 7.9, phosphorus 3.7, magnesium 2.0. Total bilirubin is 1.18, AST 44, ALT 37, alkaline phosphatase is 104, total protein is 4.3, albumin of 2.3. CPK is down to 224. CRP is 110.6. HDL is 11, LDL is 38, triglycerides 132, total cholesterol of 75. Blood culture x2 negative at 48 hours from 07/21/2018. IMPRESSION AND PLAN: 1. Alcoholic pancreatitis. In this regard, he will continue on fluids. We will check the lipase tomorrow. 2. 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 3. Clostridium difficile colitis. He is on vancomycin 250 mg by mouth every 6 hours for a total of 10 days started on 07/21/2018. We will also continue the Culturelle 1 capsule by mouth twice a day for 6 weeks. 4. Alcoholic hepatitis. We will continue to watch liver enzymes. 5. Alcohol withdrawal. He is continued on Librium 25 mg by mouth three times a day. 6. Malnutrition. We will start him on a full liquid diet and Ensure 3 times daily. Advance diet as tolerated. 7. Ileus. Continue to watch the gastrointestinal output. We will check a KUB in the morning. 8. Alcoholism. We will continue with a banana bag every day. 9. Gastrointestinal prophylaxis. Protonix twice daily. 10. Hepatic encephalopathy. Continue on Xifaxan 550 mg by mouth twice a day. 11. Anemia. Continue to watch for now. Transfuse as needed. We will start him on Iron C twice a day. 12. We will follow along. I discussed the plan of care with the patient and the nursing staff. I also spoke with Dr. Licona. All questions were answered. Please call with any further questions. cc: MD Aren Watkins MD MTDD
--- NOTE | 2018-07-24 12:27 | PROGRESS NOTE ---
DATE: 07/24/2018 SUBJECTIVE: This morning Mr. Pascal refers to be doing fairly okay. Still has mild abdominal discomfort. He also has a lot of concern about the right upper extremity that he does not move very well. OBJECTIVELY: Vitals: His current vitals, blood pressure is 117/73, pulse is 77, respiration is 18, temperature 97.9 degrees. Patient is saturating about 95-99% on 4 L. General: Mr. Pascal is a 48-year-old male. He was sitting on the bed. He seems to be in mild distress. HEENT: Mucosa is pink and moist. Anicteric. Acyanotic. Neck: Supple. Respiratory: Air entry is bilaterally reduced. There are still some diffuse crackles in the posterior lung cervantes. Cardiovascular: Regular rate and rhythm. Abdomen: Soft. It is very distended. Bowel sounds are very hypoactive. Extremities: About 2+ pedal edema. There is also edema on the lateral aspect of the thighs and the abdominal wall. [employer]ELOPER: Patient is awake, alert. Follows basic commands and denies any focal deficit. Musculoskeletal: There are mild erythematous changes on the right upper extremity. The patient is only able to move that upper extremity against gravity, but not against resistance. LABORATORY DATA: WBC is 12.61, hemoglobin is 7, platelet count of 176,000. Chemistry is reviewed. Creatinine is 1.9. CK is down to 224. However, patient's C-reactive protein is still 110.6, which is getting worse. IMAGING STUDIES: No imaging studies today. ASSESSMENT: 1. High anion gap metabolic acidosis on presentation, resolved. 2. Severe hypophosphatemia, concerning for refeeding syndrome versus electrolyte abnormality associated with long-standing alcohol abuse. This is replaced. 3. Altered mental status on presentation secondary to metabolic encephalopathy, resolved. 4. Rhabdomyolysis. CK is on downward trend. 5. Severe alcohol abuse with signs of withdrawal during the initial stages of the hospital course. The patient is on Librium and gabapentin. 6. Acute kidney injury. Creatinine is on downward trend. Nephrology is on board. 7. Alcohol-induced hepatitis. Liver enzymes are also downward trending. 8. Fatty liver disease, secondary to alcohol abuse. 9. Clostridium difficile diarrhea, patient is on oral vancomycin as well as metronidazole. 10. Severe pancreatitis associated with ileus. Gastroenterology is on board. 11. Fluid overload, likely in an attempt to resuscitate. The patient continues to be remarkably edematous. However, Gastroenterology recommends that we continue with fluid because of the severe pancreatitis. It is understandable that the patient can go into respiratory failure because of pulmonary edema and Gastroenterology recommends that we intubate if that even happens because at this point he still needs a lot of fluids for the pancreatitis. 12. Lower lobe infiltrate concerning for pneumonia/ patient is on meropenem. PLAN: So in general Mr. mosquera still looks clinically stable, but he is remarkably sick. C- reactive protein is upgoing abdomen still feels tight with findings consistent with ileus. I think he has severe pancreatitis which is driving his ileus. He is currently in fluid overload with pulmonary edema and pleural effusion on the CT scan that we did couple days ago. GI recommends to continue adequate fluid resuscitation. We are going to suspend most of his p.o. medications and convert them to IV. We will start him on TPN as well. I think Mr. hernandez s extremely complicated and he has a high potential to be intubated if the respiratory status continues to be compromised. I would therefore transfer him from the medical floor to the ICU for very close monitoring just in case he becomes he becomes decompensated. He prefers to be full code and he is ok with endotracheal intubation if needed. cc: Aren Licona MD MTDD
[2018-07-24] MEDS ORDERED: NS 250 ML ONE (14:04)
[2018-07-24] MEDS ORDERED: TPN ELECTROLYTES 20 ML, MAGNESIUM SULFATE 4 MEQ, POTASSIUM CHLORIDE 20 MEQ, SODIUM PHOS... IV SCH ×8 (17:00)
[2018-07-24] MEDS ORDERED: LIPOSYN 20% 250 ML IV SCH (17:00)
[2018-07-24] MEDS ORDERED: D10W 1,000 ML IV PRN (17:00)
--- NOTE | 2018-07-24 17:05 | INFECTIOUS DISEASE PROGRESS NO ---
DATE: 07/24/2018 PRESENT ILLNESS: The patient has Clostridium difficile diarrhea, pancreatitis, and possible bibasilar pneumonia. MEDICATIONS: The patient is receiving IV meropenem for the pancreatitis and for the Clostridium difficile diarrhea, he is receiving p.o. vancomycin and IV Flagyl. The meropenem should also cover the patient's possible pneumonia. The patient currently is on meropenem and Flagyl given intravenously and p.o. vancomycin. PHYSICAL EXAMINATION: Vital Signs: Temperature is 97.4 degrees, pulse 83, respirations 26, blood pressure 160/96. General: This is a ill-appearing, middle-aged male. He is in no acute distress. Head, eyes, ears, nose, and throat: He can hear my spoken words and see near objects. He does not have any white coating on his tongue. Neck: There is no pain when he moves his neck. Lungs: Clear to auscultation. Cardiovascular: Regular heart rate. Abdomen: Firm but not tender. Bowel sounds are present. Neurologic: The patient is awake and coherent. He can move his extremities. There is no tremor. LAB AND X-RAY: The patient's liver function studies are getting better. The blood and urine cultures are negative. Hepatitis panel shows nonreactive. Creatinine is better at 1.9. GFR is 38. The lipase today is 334. CBC shows white count of 12,610, hemoglobin 7 and platelet count is 176,000. ASSESSMENT AND PLAN: Patient has pancreatitis, Clostridium difficile colitis and possible bibasilar pneumonia. The plan is to continue with meropenem, Flagyl and vancomycin. COMORBIDITIES: The patient is a cigarette smoker. He also is an alcoholic. cc: Naman Goldberg MD
[2018-07-24] MEDS: ICAR-C PO SCH (20:58)
[2018-07-24 21:56] LABS: CALCIUM 8.3 mg/dL (8.8-10.2); CREATININE 1.4 mg/dL (0.7-1.2); MAGNESIUM 1.8 mg/dL (1.5-2.7); PHOSPHORUS 4.4 mg/dL (2.7-4.5); POTASSIUM 3.6 mmol/L (3.5-5.1); PREALBUMIN 4.3 mg/dL (20-40)
[2018-07-24] MEDS: ATIVAN IV PRN (23:04)
[2018-07-25] MEDS: VANCOMYCIN ORAL SOLN PO SCH ×4 (02:48→19:59)
[2018-07-25] MEDS: LOPRESSOR IV SCH ×4 (02:48→20:01)
[2018-07-25] MEDS: NS 1,000 ML IV SCH ×2 (05:14→16:15)
[2018-07-25] MEDS: FLAGYL 500 MG/NS 500 MG/100 ML IVPB IV SCH (05:15)
[2018-07-25 05:23] LABS: INR 1.34; PROTIME 17.7 Seconds (11.0-16.0)
[2018-07-25 05:41] LABS: BASO# 0.03 X1000 (0.0-0.2); BASO% 0.2 % (0.0-0.8); EOS# 0.04 X1000 (0.0-0.7); EOS% 0.2 % (0.0-10.0); HEMATOCRIT 27.7 % (42.0-52.0); HEMOGLOBIN 8.9 g/dL (14.0-18.0); IMM GRAN# 0.16 X1000 (0.0-0.04); IMM GRAN% 0.9 % (0.0-0.5); LYMPH# 0.57 X1000 (1.2-3.4); LYMPH% 3.2 % (20.5-51.1); MCHC 32.1 g/dL (33-37); MCV 99.6 FL (81-99); MONO# 0.92 X1000 (0.11-0.59); MONO% 5.1 % (1.7-9.3); MPV 10.7 FL (7.4-10.4); NEUT# 16.21 X1000 (1.4-6.5); NEUT% 90.4 % (42.2-75.2); PLT 194 X1000 (130-400); RBC 2.78 XMIL (4.7-6.1); RDW 17.1 % (11.5-14.5); WBC 17.93 X1000 (4.8-10.8)
[2018-07-25 05:47] LABS: ALBUMIN 2.5 g/dL (3.5-5.0); CALCIUM 8.4 mg/dL (8.8-10.2); CREATININE 1.4 mg/dL (0.7-1.2); PHOSPHORUS 4.9 mg/dL (2.7-4.5); POTASSIUM 3.8 mmol/L (3.5-5.1)
[2018-07-25 06:04] LABS: ALB/GLOB RATIO 0.9; ALBUMIN 2.5 g/dL (3.5-5.0); CALCIUM 8.3 mg/dL (8.8-10.2); CREATININE 1.3 mg/dL (0.7-1.2); POTASSIUM 3.8 mmol/L (3.5-5.1); TOTAL BILIRUBIN 0.99 mg/dL (0.20-1.00); TOTAL PROTEIN 5.3 g/dL (6.3-8.3)
[2018-07-25 06:13] LABS: MONO 4 % (1-9); SEGS 96 % (42-75)
--- NOTE | 2018-07-25 06:52 | Diag Imaging Result Doc PS360 ---
EXAM: KUB ABDOMEN HISTORY: evaluate for constipation or obstruction TECHNIQUE: Abdomen single view COMPARISON: 07/21/2018 FINDINGS: No bowel obstruction. No organomegaly. No foreign body. No abnormal abdominal calcifications. IMPRESSION: Overall interval improvement. Electronically signed by Breezy Butler 07/25/2018 6:50 AM
--- NOTE | 2018-07-25 08:01 | PROGRESS NOTE ---
DATE: 07/25/2018 HISTORY: Mr. Pascal came in on 07/16/2018. He was found in altered mental status. Chronically ill-looking, 48-year-old, white male with a history of alcohol abuse. Apparently was confused since the day before, according to his mom. Was unable to provide much information on presentation. Mother and father, who are at bedside, he was having incoherent speech the day before. Apparently overnight, he had been lying down on the ground. The morning of admission, he was very confused. Mom was trying to talk to him. Was not able to answer appropriate questions. Via EMS, came to the emergency room and had some severe metabolic acidosis, elevated renal function, elevated CK, moderate acetone levels. Plasma ethanol level was 0. Past medical history, as best they knew, was hypertension. No previous surgery. Admitted with severe acidosis, severe dehydration, alcohol withdrawal, suspected hepatic encephalopathy, severe dehydration, acute kidney injury secondary to dehydration, transaminitis, and alcohol abuse. Nephrology was asked to see for acute ketoacidosis, profoundly elevated anion gap of around 52 on presentation, appropriate respiratory compensation, mild hypokalemia, and severe hypophosphatemia, hypocalcemia. Developed rhabdomyolysis. Creatine kinase rising from 4000 to 13,000 in the first 13 hours. His osmolal gap was 29. Serum ethanol was negative. Salicylate and acetaminophen were both negative, and most likely was alcoholic ketoacidosis. He was started on sulfamethoxazole initially. He did not have any crystals in the urine. His serum ethylene glycol was pending. He showed improvement. Anion gap started to come down. His electrolyte abnormalities were supplemented. He had low potassium, low phosphorus, and low magnesium, and all those were replenished. CT of his chest was done on 07/22/2018. Moderate-sized pleural effusions, lower lobe atelectasis, and possibly underlying infiltrates. He had quite a bit of swelling overall including in his right arm and apparently that has improved. Infectious disease was asked to see. Developed Clostridium difficile diarrhea and bibasilar pneumonia. Had pancreatitis on CT scan of the abdomen. The blood cultures were positive for coagulase-negative staphylococcus. They felt it was a contaminant. This morning, he was awake. Still having some episodes of confusion. By report, both arms still had some swelling but has gone down. Urine output is improved. Urine output last night was 7600. PHYSICAL EXAMINATION: Temperature was 98.1 degrees, pulse 96, respirations 20, blood pressure 151/97. Pupils are equal and round. Lungs are clear in all lung cervantes. Cardiovascular Examination: Regular rhythm and rate without murmur or S3. Abdomen is soft. Skin is warm and dry. LABORATORY DATA: From this morning, white count is still elevated at 17,930, hematocrit is 27, hemoglobin 8.9, platelet count 194,000. Sodium 142, potassium 3.8, chloride 102, BUN 26, creatinine 1.4 so creatinine has come down, got up to 3.3. His acidosis, bicarb is 30 and this morning is 26. ASSESSMENT AND PLAN: 1. Clostridium difficile diarrhea, pancreatitis, and possible bibasilar pneumonia. The patient is on intravenous meropenem because of the pancreatitis and for the Clostridium difficile diarrhea, he is receiving oral vancomycin and intravenous Flagyl. 2. Severe hypophosphatemia, concerning for refeeding syndrome versus electrolyte abnormality associated with long-standing alcohol abuse. Continue to replace. 3. Altered mental status on presentation secondary to metabolic encephalopathy. 4. Rhabdomyolysis. CK on downward trend. Doing better. Renal function better. 5. Severe alcohol abuse. Signs of withdrawal during the early stages of the hospital course. He is on Librium and gabapentin. 6. Acute kidney injury. Creatinine improving. Renal function improving. Urine output improving. 7. Alcohol-induced hepatitis. Liver enzymes are on a downward trend. 8. Fatty liver disease secondary to alcohol abuse. 9. Clostridium difficile diarrhea. The patient is on oral vancomycin and Flagyl. 10. Severe pancreatitis associated with ileus. Gastroenterology following. Improving. 11. Fluid overload, likely secondary to his early resuscitation. Continues to be edematous but this is improving as well. Swelling in his arms improving. Continue to elevate his right arm. 12. Lower lobe infiltrates. Treating him for pneumonia. 13. Review of his orders. I do not see any change. cc: Jan Prieto MD
[2018-07-25] MEDS: XIFAXAN PO SCH (08:39)
[2018-07-25] MEDS: LIBRIUM PO SCH ×3 (08:39→16:19)
[2018-07-25] MEDS: ICAR-C PO SCH ×2 (08:39→20:00)
[2018-07-25] MEDS: ALBUMIN 25% IV SCH (08:39)
[2018-07-25] MEDS: CULTURELLE PO SCH ×2 (08:39→20:01)
[2018-07-25] MEDS: SSD CREAM TOP SCH ×2 (08:40→20:01)
--- NOTE | 2018-07-25 08:57 | NEPHROLOGY PROGRESS NOTE ---
DATE: 07/25/2018 SUBJECTIVE: No new complaints. OBJECTIVE: Unchanged. IMPRESSION: 1. Acute kidney injury. Resolving. 2. Electrolyte abnormalities have resolved. I will sign off today, but if I can be of further assistance, please do not hesitate to call. cc: Frankie Lugo MD
[2018-07-25] MEDS ORDERED: PROTONIX IV SCH (09:00)
[2018-07-25] MEDS: MERREM 1 GM in NS 50 ML IV SCH ×2 (09:19→16:17)
[2018-07-25] MEDS: ZYVOX PO SCH ×2 (09:19→20:28)
[2018-07-25 10:02] LABS: URINE SOURCE CATH
[2018-07-25 10:06] LABS: BILIRUBIN URINE NEGATIVE (NEGATIVE); BLOOD URINE TRACE (NEGATIVE); COLOR YELLOW; GLUCOSE URINE NEGATIVE (NEGATIVE); KETONE URINE NEGATIVE (NEGATIVE); LEUKOCYTES URINE NEGATIVE (NEGATIVE); NITRITE URINE NEGATIVE (NEGATIVE); PROTEIN URINE TRACE mg/dL (NEGATIVE); SP GRAVITY URINE 1.003; TURBIDITY URINE CLEAR (CLEAR); UROBILINOGEN URINE NORMAL (NORMAL)
[2018-07-25 10:29] LABS: UR EPITHELIAL CELLS <10 /HPF (<10); URINE BACTERIA NEGATIVE /HPF; URINE RBC <10 /HPF (<10); URINE WBC <10 /HPF (<10)
[2018-07-25 10:30] LABS: URINE CASTS GRANULAR PRESENT; URINE YEAST NONE SEEN
[2018-07-25] MEDS: ATIVAN IV PRN ×2 (11:00→18:20)
--- NOTE | 2018-07-25 12:23 | INFECTIOUS DISEASE PROGRESS NO ---
DATE: 07/25/2018 PRESENT ILLNESS: Mr. Pascal is being treated for C. Diff diarrhea, pancreatitis, and a possible bibasilar pneumonia. MEDICATIONS: He has been receiving IV meropenem 1 g every 12 hours as a renally modified dose for pancreatitis and possible pneumonia. He has also been on oral vancomycin 250 mg every 12 hours and Flagyl 500 mg IV every 8 hours for the C difficile diarrhea. PHYSICAL EXAMINATION: Vital Signs: Temperature is 97.5 degrees, pulse rate 90, respiratory rate 31, blood pressure 158/99. O2 saturation is 94% on 5 L nasal cannula. General: This is a chronically ill-appearing middle-aged gentleman. He is sitting up in bed, currently in no acute distress. HEENT: Atraumatic, normocephalic. Oral mucous membranes are pink and moist. Conjunctivae are pale. Cardiovascular: Heart rate and rhythm are regular. Normal sinus rhythm on the monitor. Respiratory: Lung sounds are clear in the upper lobes. Diminished in the mid and bases. Abdomen: Flat, firm, but nontender. Bowel sounds are active. Neurologic: He is awake and alert. Moving around in bed very slowly. He is noted to not be moving his right upper extremity while eating his breakfast and it is swollen with 2+ pitting edema. He can move the arm and squeeze with the right-hand on request. Integumentary: There is a PICC line in place to the left upper arm. The site is without edema, erythema, or drainage. He has a right anterior, axillary erythematous wound which looks like cabrera with some mild blistering to the edges. He also has scattered dry abrasions to his upper and lower extremities. LABORATORY AND X-RAY: Today his white count is 17.93, hemoglobin 8.9, platelet count 194,000, creatinine is 1.4. GFR 55. Total bilirubin is 0.99, AST 35, ALT 30, alkaline phosphatase 129. C- reactive protein is 92.8. Lipase is 253. Abdominal x-ray shows overall improvement with no bowel obstruction. ASSESSMENT AND PLAN: Mr. Pascal is being treated for a C difficile colitis, pancreatitis, and a possible bibasilar pneumonia. His stools have become less frequent, so we will continue his oral vancomycin but stop the IV Flagyl. His pancreatitis numbers are improving, and he denies any abdominal pain. We are also treating him for the possibility of pneumonia, and will continue the meropenem but increase the dosage to every 8 hours now that his GFR is getting closer to normal. Today he has got some increase in his leukocytosis so we will go ahead and draw blood cultures and get a urine specimen. We will also add Zyvox 600 mg by mouth every 12 hours to cover for the possibility of MRSA. These plans have been discussed with and recommended by Dr. Goldberg. COMORBIDITIES: He is a cigarette smoker and alcoholic. Dictated by POLA Nina for Naman Goldberg MD cc: Naman Goldberg MD MTD
--- NOTE | 2018-07-25 16:39 | PROVIDER PROGRESS NOTE ---
Progress Note SUBJECTIVE: No acute overnight events. Afebrile. No N/V/CP. Abdominal pain and SOB improving. BMx5 over last 24 hours. OBJECTIVE: Last Vital Signs Temp 97.4 F L 07/25/18 12:00 Pulse 84 07/25/18 15:03 Resp 23 07/25/18 15:03 BP 146/90 07/25/18 15:03 Pulse Ox 93 L 07/25/18 15:03 Height 5 ft 8 in Weight 164 lb GEN: awake, alert, oriented x3, NAD, chronically ill appearing HEENT: anicteric, dryMM NECK: supple, no jvd PULM: normal WOB, shallowing breathing; decreased BS CV: RRR, no murmus ABD: mild distension, firm, BS present; minimal TTP throughout, no rebound EXT: no cce NEURO: nonfocal LABS: 07/25/18 07/25/18 07/25/18 05:00 05:00 05:00 WBC 17.93 H Hgb 8.9 L D Plt Count 194 INR 1.34 Sodium 141 Potassium 3.8 Chloride 102 Carbon Dioxide 26 BUN 24 H Creatinine 1.3 H Glucose 157 H Calcium 8.3 L Phosphorus 4.9H Magnesium 1.5 Total Bilirubin 0.99 AST 35 H ALT 30 Alkaline Phosphatase 129 H Total Protein 5.3 L Albumin 2.5 L EXAM: KUB ABDOMEN 07/25/2018 FINDINGS: No bowel obstruction. No organomegaly. No foreign body. No abnormal abdominal calcifications. IMPRESSION: Overall interval improvement. Mr. Mike Pascal is a 48 year old man who presented with alcoholic pancreatitis found to have CDI. Found to have ANGEL. Course complicated with EOTH W/D, ileus, AMS, bibasilar PNA. His pancreatitis is improving. Leukocytosis noted; may be reactive in setting of pancreatitis vs underlying infections. #Alcoholic pancreatitis: advance to low fat diet, ensure with meals; IVFs #CDI: on vancomycin QID per ID #Bibasilar PNA: on abx per ID #ETOH W/D: improving #Severe protein calorie malnutrition: Ensure with meals; on TPN; will consider d/c'ing tomorrow depending on PO intake #Alcoholism: stop banana bag; start oral thiamine, folate, MVI #Anemia: stable: no overt bleeding #AMS: improved; stop Rifaximin; no history of cirrhosis Will follow with you. Please call with questions
[2018-07-25] MEDS ORDERED: LIPOSYN 20% 250 ML IV SCH (17:00)
[2018-07-25] MEDS ORDERED: TPN ELECTROLYTES 20 ML, MAGNESIUM SULFATE 5 MEQ, POTASSIUM CHLORIDE 25 MEQ, SODIUM PHOS... IV SCH ×8 (17:00)
[2018-07-25] MEDS ORDERED: CATAPRES PO ONE (23:24)
[2018-07-26] MEDS: MERREM 1 GM in NS 50 ML IV SCH ×2 (00:28→08:07)
[2018-07-26] MEDS: NS 1,000 ML IV SCH ×2 (00:34→16:46)
[2018-07-26] MEDS: LOPRESSOR IV SCH ×4 (02:22→20:12)
[2018-07-26] MEDS: VANCOMYCIN ORAL SOLN PO SCH ×4 (02:23→20:12)
[2018-07-26 06:06] LABS: AGAP 9; ALBUMIN 2.7 g/dL (3.5-5.0); BUN 20 mg/dL (8-22); CALCIUM 8.2 mg/dL (8.8-10.2); CHLORIDE 104 mmol/L (98-107); COSMO 294; ESTIMATED GFR > 60; GLUCOSE 172 mg/dL (70-104); PHOSPHORUS 4.3 mg/dL (2.7-4.5); SODIUM 144 mmol/L (136-145); TCO2 31 mmol/L (25-35)
[2018-07-26 06:20] LABS: ESTIMATED GFR > 60
[2018-07-26 06:22] LABS: AGAP 9; BUN 20 mg/dL (8-22); CALCIUM 8.3 mg/dL (8.8-10.2); CHLORIDE 104 mmol/L (98-107); CHOLESTEROL 62 mg/dL (0-200); COSMO 293; GLUCOSE 171 mg/dL (70-104); GOT 45 U/L (10-34); MAGNESIUM 1.4 mg/dL (1.5-2.7); POTASSIUM 4.1 mmol/L (3.5-5.1); PREALBUMIN 3.8 mg/dL (20-40); SODIUM 144 mmol/L (136-145); TCO2 31 mmol/L (25-35); TRIGLYCERIDES 120 mg/dL (39-160)
--- NOTE | 2018-07-26 07:27 | PROGRESS NOTE ---
DATE: 07/26/2018 SUBJECTIVE: Mr. Pascal is feeling a little better. He had a good night. Right arm is still elevated on some pillows. There is still some pitting edema greater than the left arm. I do not see any other swelling. I do not see it in his lower extremities. OBJECTIVE: He remains afebrile, temperature 97.2 degrees, pulse 89, respirations 17, and blood pressure 143/83. Pupils are equal and round. Lungs are clear in all lung cervantes. Cardiovascular exam with regular rhythm and rate without murmur or S3. Abdomen is soft. Skin is warm and dry. Urine output is 3500 mL. Blood sugars 158, 166 and 194. ASSESSMENT AND PLAN: He presented with alcoholic pancreatitis, found to have C. Difficile infection and acute kidney injury complicated with alcohol withdrawal, metabolic encephalopathy, ileus, and bibasilar pneumonia. 1. Pancreatitis, seems to be improving. 2. C. Difficile colitis or infection getting vancomycin q.i.d. 3. Bibasilar pneumonia. Continue current antibiotics. Clinically improving and radiographically improving. 4. Ethanol withdrawal, improving. 5. Severe protein calorie malnutrition. He is on TPN. Consider trying to switch over to p.o. intake today. 6. Alcoholism. His banana bag was stopped and he is on oral thiamine, folate, and multivitamin. 7. Anemia which is stable. Continue to follow hemoglobin and hematocrit. 8. Altered mental status. Rifaximin was stopped. No evidence of elevated ammonia level. Renal function is improving. Swelling seems to be going down. Urine output has picked up. Still has leukocytosis. His transaminases are going down so seems to be heading in the right direction. REVIEW OF ORDERS: He is getting vancomycin 250 mg p.o. q.6 hours, Librium 25 mg t.i.d., iron carbonyl ascorbic acid 1 b.i.d., lactobacillus 1 tablet b.i.d., Zyvox 600 mg p.o. q.12, meropenem 1 g IV q.8 hours. His blood pressure is still running a little high. He is to take clonidine. We will put him on a Catapres patch 0.2 mg and see if that will help. cc: Jan Prieto MD
[2018-07-26] MEDS: LIBRIUM PO SCH ×3 (08:06→16:45)
[2018-07-26] MEDS: NORVASC PO SCH (08:06)
[2018-07-26] MEDS: PRINIVIL PO SCH (08:07)
[2018-07-26] MEDS: MAG-OX PO SCH ×4 (08:07→20:45)
[2018-07-26] MEDS: CATAPRES-TTS-2 TD SCH (08:07)
[2018-07-26] MEDS: CULTURELLE PO SCH ×2 (08:07→20:04)
[2018-07-26] MEDS: ICAR-C PO SCH (08:07)
[2018-07-26] MEDS: SSD CREAM TOP SCH ×2 (08:08→20:13)
[2018-07-26] MEDS: ZYVOX PO SCH ×3 (08:19→20:45)
--- NOTE | 2018-07-26 10:18 | INFECTIOUS DISEASE PROGRESS NO ---
DATE: 07/26/2018 PRESENT ILLNESS: Mr. Pascal has C-diff diarrhea, pancreatitis, and a possible pneumonia. MEDICATIONS: He is receiving IV meropenem 1 g every 8 hours, vancomycin 250 mg by mouth every 6 hours and Zyvox 600 mg by mouth every 12 hours. PHYSICAL EXAMINATION: Vital Signs: Temperature is 97.7 degrees, pulse rate 99, respiratory rate 31, blood pressure 180/112. O2 saturation is 96% on 6 L nasal cannula. General: This is a chronically ill-appearing, middle-aged gentleman. He is sitting up in the bed complaining of abdominal pain. HEENT: Atraumatic, normocephalic. Oral mucous membranes are pink and moist. Conjunctivae are pale. Cardiovascular: Heart rate and rhythm are regular. Normal sinus rhythm on the monitor. Respiratory: Lung sounds are clear in the upper lobes. Diminished in the mid bases. He is tachypneic. Abdomen: Firm and tender on palpation. Bowel sounds are active. Integumentary: Erythema and blistering noted to his anterior axillary area. There is also a PICC line in place to his left upper arm. That site is without edema, erythema, or drainage. Neurologic: He has awake, alert and able to answer questions appropriately. He is slow with his responses, able to move all extremities in the bed with generalized weakness noted. He also has some swelling with decreased use of his right upper extremity. LABORATORY AND X-RAY: No CBC available today but his creatinine is 1 and his estimated GFR is greater than 60. Total bilirubin is 1.10, AST 45. Urinalysis done yesterday shows no bacteria and less than 10 WBCs. Blood cultures were drawn yesterday and are pending. No imaging reports today. ASSESSMENT AND PLAN: Mr. Pascal is being treated for clostridium difficile diarrhea, pancreatitis and a possible pneumonia. We have not had a chest x-ray, for a few days so I will order one for tomorrow morning. He has had acute kidney injury which seems to have resolved. We will go ahead and increase his meropenem to 2 g every 8 hours. We will also continue the Zyvox and oral vancomycin as ordered. These plans have been discussed with and recommended by Dr. Goldberg. COMORBIDITIES: For Mr. Pascal include cigarette smoking and alcoholism. Dictated by POLA Nina for Naman Goldberg MD cc: aNman Goldberg MD [facility]
[2018-07-26] MEDS: VITAMIN B-1 PO SCH (11:21)
[2018-07-26] MEDS: FOLIC ACID PO SCH (11:21)
[2018-07-26] MEDS: CENTRUM SILVER PO SCH (11:21)
[2018-07-26] MEDS ORDERED: VASELINE TOP PRN (13:48)
[2018-07-26] MEDS: ATIVAN IV PRN (14:15)
[2018-07-26] MEDS: MERREM 2 GM in NS 100 ML IV SCH (16:44)
[2018-07-26] MEDS: LIPOSYN 20% 250 ML IV SCH (16:45)
[2018-07-26] MEDS: [UNRECOGNIZED DRUG - OTHER] IV SCH ×8 (17:28)
[2018-07-26] MEDS: MAGNESIUM SULFATE IV SCH ×8 (17:28)
[2018-07-26] MEDS: POTASSIUM CHLORIDE IV SCH ×8 (17:28)
[2018-07-26] MEDS: TPN ELECTROLYTES IV SCH ×8 (17:28)
[2018-07-26] MEDS ORDERED: LASIX IV ONE (17:55)
[2018-07-26] MEDS: ZOFRAN IV PRN (18:14)
--- NOTE | 2018-07-27 00:02 | PROVIDER PROGRESS NOTE ---
Progress Note SUBJECTIVE: No acute overnight events. Afebrile. He is not taking good PO intake and attributes it to "people not let him eat". He denies abdominal pain. +BMs OBJECTIVE: Last Vital Signs Temp 97.6 F 07/26/18 20:00 Pulse 105 H 07/26/18 21:03 Resp 25 H 07/26/18 21:03 BP 126/90 07/26/18 21:03 Pulse Ox 93 L 07/26/18 21:03 Height 5 ft 8 in Weight 165 lb 2 oz GEN: awake, alert, confused but not lethargic, NAD, chronically ill appearing HEENT: anicteric, dryMM NECK: supple, no jvd PULM: normal WOB, shallowing breathing; decreased BS CV: RRR, no murmurs ABD: mild distension, firm, BS present; minimal TTP throughout, no rebound EXT: anasarca, RUE swelling with pitting edema; no edema LUE NEURO: weakness in LUE LABS: 07/26/18 07/26/18 07/26/18 04:47 04:47 04:47 Chloride 104 Carbon Dioxide 31 BUN 20 Creatinine 1.0 Glucose 172 H Total Bilirubin 1.10 H AST 45 H Albumin 2.7 L Prealbumin 3.8 L A/P Mr. Mike Pascal is a 48 year old man who presented with alcoholic pancreatitis found to have CDI. Found to have ANGEL. Course complicated with EOTH W/D, ileus, AMS, bibasilar PNA. His pancreatitis is improving. Lytes stable. No CBC today. #Alcoholic pancreatitis: cont low fat diet as tolerated; encouraged PO intake, ensure with meals; decreased IVFs to 50mL/hr #CDI: on vancomycin QID per ID #Bibasilar PNA: on abx per ID #ETOH W/D: improving #Severe protein calorie malnutrition: Ensure with meals; on TPN; if he continues to have poor PO intake, will consider douboff tube placement; does not need post-pylori feeding #Alcoholism: cont oral thiamine, folate, MVI #Anemia: stable: no overt bleeding #AMS: he has confusion with hepatic encephalopathy; appears he may have deliri um; correct lytes; continue IVFs; holding rifaximin for now Will follow with you. Please call with questions
[2018-07-27] MEDS: MERREM 2 GM in NS 100 ML IV SCH ×3 (00:24→15:45)
[2018-07-27] MEDS: VANCOMYCIN ORAL SOLN PO SCH ×4 (03:47→20:52)
[2018-07-27] MEDS: LOPRESSOR IV SCH ×4 (03:47→20:52)
[2018-07-27 05:21] LABS: BASO# 0.03 X1000 (0.0-0.2); BASO% 0.2 % (0.0-0.8); EOS# 0.04 X1000 (0.0-0.7); EOS% 0.3 % (0.0-10.0); HEMOGLOBIN 8.7 g/dL (14.0-18.0); IMM GRAN# 0.24 X1000 (0.0-0.04); IMM GRAN% 1.8 % (0.0-0.5); LYMPH# 0.59 X1000 (1.2-3.4); LYMPH% 4.5 % (20.5-51.1); MCH 32.8 PG (27-31); MCHC 32.2 g/dL (33-37); MCV 101.9 FL (81-99); MONO# 0.78 X1000 (0.11-0.59); MONO% 5.9 % (1.7-9.3); MPV 11.5 FL (7.4-10.4); NEUT# 11.51 X1000 (1.4-6.5); NEUT% 87.3 % (42.2-75.2); PLT 212 X1000 (130-400); RBC 2.65 XMIL (4.7-6.1); RDW 16.9 % (11.5-14.5); WBC 13.19 X1000 (4.8-10.8)
[2018-07-27 06:00] LABS: BANDS 4 % (0-1); LYMPHS 1 % (21-51); MONO 2 % (1-9); SEGS 93 % (42-75)
[2018-07-27 07:26] LABS: AGAP 10; ALB/GLOB RATIO 0.9; ALBUMIN 2.6 g/dL (3.5-5.0); ALKALINE PHOSPHATASE 346 U/L (32-122); BUN 20 mg/dL (8-22); CALCIUM 8.9 mg/dL (8.8-10.2); CHLORIDE 101 mmol/L (98-107); CHOLESTEROL 79 mg/dL (0-200); COSMO 297; CREATININE 0.8 mg/dL (0.7-1.2); ESTIMATED GFR > 60; GLUCOSE 197 mg/dL (70-104); GOT 72 U/L (10-34); GPT 40 U/L (10-44); MAGNESIUM 1.3 mg/dL (1.5-2.7); POTASSIUM 3.5 mmol/L (3.5-5.1); SODIUM 145 mmol/L (136-145); TCO2 34 mmol/L (25-35); TOTAL BILIRUBIN 1.21 mg/dL (0.20-1.00); TOTAL PROTEIN 5.5 g/dL (6.3-8.3); TRIGLYCERIDES 95 mg/dL (39-160)
--- NOTE | 2018-07-27 07:40 | Diag Imaging Result Doc PS360 ---
EXAM: CHEST-PORTABLE HISTORY: pneumonia TECHNIQUE: Portable chest single view COMPARISON: 07/22/2018 FINDINGS: Poor inspiratory effort. There are infiltrates and atelectasis in the lung bases with small pleural effusions. No cardiomegaly. Mild central vascular prominence. Interval placement of a left-sided PICC line. The end is coiled in the distal superior vena cava. IMPRESSION: Interval worsening. Electronically signed by Breezy Butler 07/27/2018 7:38 AM
[2018-07-27 07:44] LABS: PREALBUMIN 4.6 mg/dL (20-40)
[2018-07-27] MEDS ORDERED: LASIX IV ONE (08:10)
[2018-07-27] MEDS: PRINIVIL PO SCH (08:17)
[2018-07-27] MEDS: CULTURELLE PO SCH ×2 (08:17→20:51)
[2018-07-27] MEDS: CENTRUM SILVER PO SCH (08:17)
[2018-07-27] MEDS: MAG-OX PO SCH ×2 (08:17→20:51)
[2018-07-27] MEDS: ZYVOX PO SCH ×2 (08:17→20:51)
[2018-07-27] MEDS: FOLIC ACID PO SCH (08:17)
[2018-07-27] MEDS: VITAMIN B-1 PO SCH (08:17)
[2018-07-27] MEDS: NORVASC PO SCH (08:17)
[2018-07-27] MEDS: LIBRIUM PO SCH ×3 (08:18→17:41)
[2018-07-27] MEDS: SSD CREAM TOP SCH ×2 (08:18→20:53)
--- NOTE | 2018-07-27 08:36 | PROGRESS NOTE ---
DATE: 07/27/2018 SUBJECTIVE: Mr. Pascal is feeling better. His swelling is going down in his arm. He had improved urine output. He is breathing better than yesterday evening. We gave him 80 mg of Lasix yesterday. PHYSICAL EXAMINATION: Temperature 97.0 degrees, pulse 99, respirations 32, blood pressure 194/116. Pupils are equal and round. Lungs are clear in all lung cervantes. Cardiovascular Examination: Regular rhythm and rate without murmur or S3. Abdomen is soft. Skin is warm and dry. Urine output 6600 mL. Blood sugar 193, 253, 220. Chest x-ray, interval worsening, poor inspiratory effort. There are infiltrates and atelectasis in the lung bases. Small pleural effusion. Mild central vascular prominence. Interval placement of left-sided PICC line and the end is coiled in the distal superior vena cava. ASSESSMENT AND PLAN: 1. Clostridium difficile diarrhea, pancreatitis, acidosis, possible pneumonia. He is on meropenem 1 g every 8 hours, vancomycin 250 mg every 6 hours, and Zyvox 600 mg by mouth every 12 hours. Clinically, he appears to be improving. 2. Bibasilar pneumonia. 3. Ethanol withdrawal which he should be through, improving. 4. Severe protein calorie malnutrition, on total parenteral nutrition which we switched over to oral. He does not have much of an appetite but encourage oral intake. 5. Alcoholism. Banana bag was stopped and he is on oral thiamine, folate, multivitamin. 6. Anemia, stable. Follow hemoglobin and hematocrit. 7. Altered mental status. This is improved. He knows he is in the hospital. He knows who he is but he cannot remember the date or the year. He thinks it is 1996. 8. He has some pulmonary venous hypertension. We will give him some more Lasix this morning. REVIEW OF HIS LAB: White count this morning is down to 13,190, hematocrit 27, hemoglobin 8.7, platelet count 212,000. Sodium 145, potassium 3.5, chloride 101, BUN 20, creatinine 0.8, calcium was 8.9. Transaminases have improved. AST is 72, ALT is 40. Note that creatinine is 0.8, which is encouraging. His prealbumin was 4.6 and albumin was 2.6. REVIEW OF ORDERS: Vancomycin 250 mg p.o. q.6 hours, Norvasc 10 mg a day, Librium 25 mg t.i.d., Catapres patch 0.2 mg q.7 days, folic acid 1 mg p.o. daily, lactobacillus 1 b.i.d. Zyvox 600 mg p.o. q.12, lisinopril 20 mg a day, Ativan 1 mg IV q.2 hours p.r.n., magnesium oxide 800 mg p.o. b.i.d., meropenem 2 g IV q.8 hours. I think his TPN and electrolytes were restarted. cc: Jan Prieto MD
--- NOTE | 2018-07-27 11:33 | INFECTIOUS DISEASE PROGRESS NO ---
DATE: 07/27/2018 PRESENT ILLNESS: The patient has Clostridium difficile diarrhea, pancreatitis, and possible pneumonia. MEDICATIONS: The patient is on day 2 of treatment with p.o. Zyvox and IV meropenem. The patient also is on p.o. vancomycin for the past 4 days to treat the patient's Clostridium difficile diarrhea. The Zyvox and vancomycin are treating the patient's pancreatitis and possible pneumonia. PHYSICAL EXAMINATION: Vital Signs: Temperature is 97 degrees, pulse 99, respirations 32, blood pressure 194/116. General: This is a lethargic, ill-appearing, middle-aged male. There is no acute distress. Head, eyes, ears, nose and throat: No drainage noted from the nose or ears. He does not have any white patches on his tongue. Neck: No pain with movement. Lungs: Clear to auscultation. Cardiovascular: Regular heart rate. Abdomen: Slightly firm and protuberant. It did not seem to be tender. Neurologic: The patient is lethargic. He moved his extremities to request and he talked, but it was not very clear. Extremities: The patient's left arm PICC site is not red or purulent. LAB AND X-RAY: Chest x-ray shows bibasilar infiltrates/atelectasis. Alkaline phosphatase is 346. CBC shows a white count of 13,190, hemoglobin 8.7, platelet count 212,000. Creatinine 0.8. GFR is greater than 60. ASSESSMENT AND PLAN: As mentioned above, the patient is being treated for Clostridium difficile diarrhea, pancreatitis, and possible pneumonia. I plan to continue both meropenem intravenous, Zyvox by oral and vancomycin oral. COMORBIDITIES: The patient smokes cigarettes and is an alcoholic. cc: Naman Goldberg MD [facility]
[2018-07-27] MEDS: PROTONIX IV SCH ×2 (12:40→20:50)
[2018-07-27] MEDS: SODIUM CHLORIDE 0.9% INJ SCH ×2 (12:40→20:50)
--- NOTE | 2018-07-27 13:06 | GASTROENTEROLOGY PROGRESS NOTE ---
DATE: 07/27/2018 SUBJECTIVE: The patient is resting in bed. He is feeling better today. He is trying to drink Ensure but today, so far, he has only had about 1/3 of the bottle. He is started on TPN. He moved his bowels today. It was brown and soft. According to the nursing reports, the patient has poor oral intake. He has been afebrile. No nausea, vomiting, or vomiting blood. PHYSICAL EXAMINATION: Vital Signs: Temperature of 96.6 degrees, pulse rate of 96, respiratory rate of 29, blood pressure of 162/97, saturating 94% on 6 L nasal cannula. Body weight of 173 pounds, BMI 26.3 kg/m2. General Appearance: Moderately built, moderately nourished. Lying in bed, in no acute distress. HEENT: Pale conjunctivae. Mild icterus. Pupils equal, reactive to light. Neck: Supple. Abdomen: Discomfort in the epigastrium region. No rebound. No guarding. Extremities: No cyanosis or clubbing. Neurologic: Alert, awake, and answers questions. Extremities: He does have anasarca. LABS: His hemoglobin and hematocrit are 8.7 and 27, white count of 13.19, platelet count of 212,000. Sodium of 140, potassium 3.5, chloride 101, bicarb 34, anion gap 10, BUN of 20, creatinine 0.8, glucose of 197, calcium is 8.9, phosphorus 2.9, magnesium 1.3. Total bilirubin is 1.1, direct of 0.7, AST 72, ALT 40, alkaline phosphatase 342, total protein is 5.4, albumin of 2.6, prealbumin of 4.6, lipase is 282 which has gone up slightly from 2 days ago. Chest x-ray done today showed interval worsening, poor inspiratory effort. There are infiltrates and atelectasis in the lung bases with small pleural effusion. No cardiomegaly. IMPRESSION AND PLAN: 1. Alcoholic pancreatitis. Continue on low-fat diet as tolerated. He has poor oral intake. We talked about putting in a Dobbhoff but the patient may not tolerate it, per the nursing staff. According to nursing staff, the patient continues to pull on his nasal cannula and they are replacing it near his nose. The intensive care unit nursing thinks he may be a poor candidate for a nasogastric tube or a Dobbhoff as he is likely to pull it out. For the short term, we will keep him on total parenteral nutrition to help his nutrition. 2. Clostridium difficile colitis. He is on vancomycin 250 mg 4 times daily per infectious disease. 3. Bibasilar pneumonia. He is on antibiotics per infectious disease. 4. Alcohol withdrawal, is improving. 5. Severe protein calorie malnutrition. He will continue Ensure 3 times daily. He is on total parenteral nutrition. 6. Alcoholism. He will continue oral thiamine, multivitamin, and folate. 7. Anemia. Continue to watch for now and transfuse as needed. 8. Encephalopathy, is improving. Continue to watch for now. 9. Gastrointestinal prophylaxis, proton pump inhibitors. 10. The primary team needs to start tapering down Librium. That will hopefully improve his mental status and he may be able to start eating better. 11. He is getting intravenous Lasix per the primary care team for volume overload. 12. The above plan of care was discussed with the patient and the nursing staff, and the nutrition team. All questions were answered. Please call us with any further questions. cc: MD Jan Watkins MD
[2018-07-27] MEDS: [UNRECOGNIZED DRUG - OTHER] IV SCH ×8 (17:10)
[2018-07-27] MEDS: POTASSIUM CHLORIDE IV SCH ×8 (17:10)
[2018-07-27] MEDS: TPN ELECTROLYTES IV SCH ×8 (17:10)
[2018-07-27] MEDS: MAGNESIUM SULFATE IV SCH ×8 (17:10)
[2018-07-27] MEDS: LIPOSYN 20% 250 ML IV SCH (17:10)
[2018-07-27] MEDS: NS 1,000 ML IV SCH (17:44)
[2018-07-27] MEDS: ATIVAN IV PRN (23:04)
[2018-07-28] MEDS: PROTONIX IV SCH ×2 (00:20→11:22)
[2018-07-28] MEDS: MERREM 2 GM in NS 100 ML IV SCH ×3 (00:29→16:24)
[2018-07-28] MEDS: HUMALOG SUBQ SCH ×6 (00:30→21:12)
[2018-07-28] MEDS: VANCOMYCIN ORAL SOLN PO SCH ×4 (02:08→21:04)
[2018-07-28 03:50] LABS: AGAP 7; ALBUMIN 2.6 g/dL (3.5-5.0); BUN 24 mg/dL (8-22); CALCIUM 8.7 mg/dL (8.8-10.2); CHLORIDE 97 mmol/L (98-107); COSMO 291; CREATININE 0.9 mg/dL (0.7-1.2); ESTIMATED GFR > 60; GLUCOSE 137 mg/dL (70-104); MAGNESIUM 1.3 mg/dL (1.5-2.7); PHOSPHORUS 2.5 mg/dL (2.7-4.5); POTASSIUM 3.3 mmol/L (3.5-5.1); SODIUM 143 mmol/L (136-145); TCO2 39 mmol/L (25-35)
[2018-07-28] MEDS: LOPRESSOR IV SCH ×3 (06:21→17:30)
[2018-07-28] MEDS ORDERED: MAGNESIUM SULFATE 2 GM/S.W.I. 2 GM/50 ML IVPB IV ONE (08:46)
[2018-07-28] MEDS ORDERED: POTASSIUM CHLORIDE 20% LIQUID PO ONE (08:46)
[2018-07-28] MEDS: CULTURELLE PO SCH ×2 (09:00→21:04)
[2018-07-28] MEDS: CENTRUM SILVER PO SCH (09:00)
[2018-07-28] MEDS: VITAMIN B-1 PO SCH (09:00)
[2018-07-28] MEDS: ZYVOX PO SCH ×2 (09:00→21:04)
[2018-07-28] MEDS: FOLIC ACID PO SCH (09:01)
[2018-07-28] MEDS: SSD CREAM TOP SCH ×2 (09:01→21:04)
[2018-07-28] MEDS: PRINIVIL PO SCH (09:01)
[2018-07-28] MEDS: MAG-OX PO SCH ×2 (09:01→21:04)
[2018-07-28] MEDS: NS 1,000 ML IV SCH (09:01)
[2018-07-28] MEDS: NORVASC PO SCH (09:01)
[2018-07-28] MEDS: LIBRIUM PO SCH ×3 (09:01→16:25)
--- NOTE | 2018-07-28 10:15 | PROVIDER PROGRESS NOTE ---
Progress Note SUBJECTIVE: No acute overnight events. Patient had 3 stools yesterday. No N/V/F, CP. SOB improving. No abdominal pain. Tolerating diet. OBJECTIVE: Last Vital Signs Temp 98.7 F 07/28/18 04:00 Pulse 102 H 07/28/18 05:03 Resp 14 07/28/18 05:03 BP 155/90 07/28/18 05:03 Pulse Ox 93 L 07/28/18 08:00 Height 5 ft 8 in Weight 168 lb 6.4 oz GEN: awake, alert, confusion resolved, NAD, chronically ill appearing HEENT: anicteric, dryMM NECK: supple, no jvd PULM: normal WOB, CTAB anteriorly CV: RRR, no murmurs ABD: mild distension, firm, BS present; nontender EXT: anasarca, RUE swelling with pitting edema improving; no edema LUE NEURO: weakness in LUE LABS: 07/27/18 07/28/18 04:15 03:20 WBC 13.19 H Hgb 8.7 L Plt Count 212 Sodium 143 Potassium 3.3 L Chloride 97 L Carbon Dioxide 39 H BUN 24 H Creatinine 0.9 Glucose 137 H Calcium 8.7 L Phosphorus 2.5 L Magnesium 1.3 L Albumin 2.6 L A/P Mr. Mike Pascal is a 48 year old man who presented with alcoholic pancreatitis found to have CDI. Found to have ANGEL. Course complicated with EOTH W/D, ileus, AMS, bibasilar PNA. His pancreatitis resolving. He is improving significantly. Elevated bicarb concerning for contraction alkalosis. I would avoid further diuresis and allow patient to mobilize fluids on his own as long as his respiratory status is stable. #Alcoholic pancreatitis: cont low fat diet as tolerated; encouraged PO intake, ensure with meals: recommend stopping TPN #CDI: on vancomycin QID per ID #Bibasilar PNA: on abx per ID #ETOH W/D: resolved #Severe protein calorie malnutrition: nutrition following #Alcoholism: cont oral thiamine, folate, MVI #Anemia: stable: no overt bleeding #AMS: resolved #DISPO: PT/OT, out of bed Will follow with you. Please call with questions
--- NOTE | 2018-07-28 13:16 | PROGRESS NOTE ---
DATE: 07/28/2018 SUBJECTIVE: Mr. Pascal is comfortable, had a pretty uneventful night. OBJECTIVE: Vital Signs: Afebrile, temperature 98.7, pulse 86, respirations 13, blood pressure 103/62. HEENT: Pupils are equal and round. Lungs: Clear in all lung cervantes. Cardiovascular: Regular rhythm and rate without murmur or S3. Urine output is 4000 mL. ASSESSMENT AND PLAN: 1. Alcoholic pancreatitis. Continue low-fat diet. Encourage p.o. intake. Ensure with meals. Recommend stopping his TPN. 2. Clostridium difficile infection. Continue vancomycin p.o. q.i.d. 3. Bibasilar pneumonia. Continue present antibiotics. 4. ETOH withdrawal, resolved. 5. Severe protein calorie malnutrition. 6. Alcoholism. He is to continue his multivitamin, folate, thiamine. 7. Anemia which is stable. Continue to follow hematocrit and hemoglobin. 8. Acute mental status or encephalopathy is resolved or better. He still has times of confusion. Still has trouble remembering the month and the date. 9. Pursue physical therapy and see if we can get him out of bed and get him stronger. May be able to move him to the floor soon. cc: Jan Prieto MD
[2018-07-29] MEDS: PROTONIX IV SCH ×4 (00:05→23:55)
[2018-07-29] MEDS: MERREM 2 GM in NS 100 ML IV SCH ×3 (00:05→16:25)
[2018-07-29] MEDS: HUMALOG SUBQ SCH ×4 (00:31→20:49)
[2018-07-29] MEDS: VANCOMYCIN ORAL SOLN PO SCH ×4 (01:10→20:50)
[2018-07-29] MEDS: LOPRESSOR IV SCH ×4 (01:10→18:28)
[2018-07-29 06:53] LABS: AGAP 9; ALBUMIN 2.6 g/dL (3.5-5.0); BUN 28 mg/dL (8-22); CHLORIDE 102 mmol/L (98-107); COSMO 299; ESTIMATED GFR > 60; GLUCOSE 126 mg/dL (70-104); PHOSPHORUS 2.7 mg/dL (2.7-4.5); POTASSIUM 3.7 mmol/L (3.5-5.1); SODIUM 147 mmol/L (136-145); TCO2 36 mmol/L (25-35)
[2018-07-29] MEDS: CULTURELLE PO SCH ×2 (08:36→20:49)
[2018-07-29] MEDS: VITAMIN B-1 PO SCH (08:36)
[2018-07-29] MEDS: ZYVOX PO SCH ×2 (08:36→20:49)
[2018-07-29] MEDS: MAG-OX PO SCH ×2 (08:36→20:50)
[2018-07-29] MEDS: NORVASC PO SCH (08:36)
[2018-07-29] MEDS: FOLIC ACID PO SCH (08:36)
[2018-07-29] MEDS: PRINIVIL PO SCH (08:36)
[2018-07-29] MEDS: CENTRUM SILVER PO SCH (08:36)
[2018-07-29] MEDS: LIBRIUM PO SCH (08:38)
[2018-07-29] MEDS: SSD CREAM TOP SCH ×2 (08:38→20:51)
--- NOTE | 2018-07-29 11:23 | PROGRESS NOTE ---
DATE: 07/29/2018 SUBJECTIVE: He is doing much better and we have cut back on his sedation. He is breathing comfortably and getting down some food. Bowels are moving. Renal function improving. OBJECTIVE: Vital Signs: Temperature 96.7 degrees, pulse 78, respirations 16, blood pressure 140/89. Eyes: Pupils are equal and round. Lungs: Clear in all lung cervantes. Cardiovascular exam: Regular rhythm and rate without murmur or S3. Abdomen: Soft. Skin: Warm and dry. : Urine output is 2400 mL. Blood sugars 203, 114 and 154. ASSESSMENT/PLAN: 1. Alcoholic pancreatitis, which is improved. Continue low fat diet. Encourage oral intake. 2. Clostridium difficile infection on vancomycin oral. 3. Bibasilar pneumonia. Continue present antibiotics. He is doing better. 4. Ethanol withdrawal, resolved. 5. Severe protein calorie malnutrition, improved oral intake. 6. Alcoholism. Has gone through alcohol withdrawal. He is still on monthly vitamin, folate, thiamine. 7. Anemia, which has been stable. Follow hemoglobin hematocrit. 8. Presented with metabolic encephalopathy, and this was compounded by the alcohol withdrawal. This is improved. We will continue physical therapy. Continue present orders. I am going to let him transfer to the floor. cc: Jan Prieto MD
--- NOTE | 2018-07-29 19:41 | INFECTIOUS DISEASE PROGRESS NO ---
DATE: 07/29/2018 PRESENT ILLNESS: The patient has Clostridium difficile diarrhea, pancreatitis, and possible pneumonia. MEDICATIONS: The patient is on day 4 of p.o. Zyvox and IV meropenem, as well as the patient is on p.o. vancomycin to treat his Clostridium difficile. The patient's Zyvox and meropenem are treating the patient's pancreatitis and possible pneumonia. PHYSICAL EXAMINATION: Vital Signs: Temperature is 96.7 degrees, pulse 78, respirations 16, blood pressure 140/89. General: The patient looks much better today. He is alert and talkative. He is in no acute distress. Head/eyes/ears/nose/throat: He does not have any drainage from his nose or ears, and I do not see any white patches on his tongue. Neck: There is no stiffness. Lungs: Clear to auscultation. Cardiovascular: Regular heart rate. Abdomen: Slightly firm, but it is less protuberant than it had been and it is not tender. Neurologic: The patient as mentioned is awake. He has been ambulating and sitting in chairs. Extremities: The patient has a PICC in the left arm. The site is not erythematous or draining. LABORATORIES AND X-RAY: Creatinine is 1.0. GFR is greater than 60. There is no other lab or radiographic study for today. ASSESSMENT AND PLAN: The patient is being treated for Clostridium difficile diarrhea, pancreatitis and possible pneumonia. For now I plan to continue his current antimicrobial agents. COMORBIDITIES: The patient is an alcoholic and he smokes cigarettes. cc: Naman Goldberg MD
[2018-07-29] MEDS: SODIUM CHLORIDE 0.9% INJ SCH (20:46)
[2018-07-30] MEDS ORDERED: DUONEB (A & A) INH ONE (01:00)
[2018-07-30] MEDS: HUMALOG SUBQ SCH ×6 (01:10→22:14)
[2018-07-30 01:12] LABS: ALLEN TEST YES; BE 14.7 mmoll (-3.0-3.0); BLOOD TYPE ARTERIAL; HCO3-(ACT) 36.3 mmoll (20.0-26.0); METHB 1.2 % (0.0-1.5); O2(CT) 10.1 mL/dL (15.0-23.0); O2HB 91.7 % (95.0-99.0); PCO2(98.6) 44 mmHg (35-45); PO2(98.6) 60 mmHg (60-100); SAMPLE BLOOD; SAO2 94.6 % (95.0-100.0); THB 7.8 g/dL (11.5-17.4); pH(98.6) 7.55 (7.35-7.45)
[2018-07-30 01:13] LABS: MODALITY CANNULA
[2018-07-30] MEDS: MERREM 2 GM in NS 100 ML IV SCH ×3 (01:13→18:27)
[2018-07-30] MEDS: LOPRESSOR IV SCH ×4 (01:31→18:27)
[2018-07-30] MEDS: VANCOMYCIN ORAL SOLN PO SCH ×4 (02:39→22:22)
[2018-07-30] MEDS: NS 1,000 ML IV SCH (03:31)
[2018-07-30 06:40] LABS: AGAP 11; BUN 25 mg/dL (8-22); CALCIUM 8.2 mg/dL (8.8-10.2); CHLORIDE 100 mmol/L (98-107); COSMO 293; CREATININE 0.9 mg/dL (0.7-1.2); ESTIMATED GFR > 60; GLUCOSE 155 mg/dL (70-104); MAGNESIUM 1.4 mg/dL (1.5-2.7); POTASSIUM 3.5 mmol/L (3.5-5.1); SODIUM 143 mmol/L (136-145); TCO2 32 mmol/L (25-35)
[2018-07-30 06:42] LABS: AGAP 10; ALBUMIN 2.3 g/dL (3.5-5.0); BUN 25 mg/dL (8-22); CALCIUM 8.4 mg/dL (8.8-10.2); CHLORIDE 100 mmol/L (98-107); COSMO 291; CREATININE 0.8 mg/dL (0.7-1.2); ESTIMATED GFR > 60; GLUCOSE 154 mg/dL (70-104); PHOSPHORUS 3.4 mg/dL (2.7-4.5); POTASSIUM 3.3 mmol/L (3.5-5.1); SODIUM 142 mmol/L (136-145); TCO2 32 mmol/L (25-35)
[2018-07-30] MEDS: VITAMIN B-1 PO SCH (08:28)
[2018-07-30] MEDS: NORVASC PO SCH (08:29)
[2018-07-30] MEDS: CENTRUM SILVER PO SCH (08:29)
[2018-07-30] MEDS: MAG-OX PO SCH ×2 (08:29→22:21)
[2018-07-30] MEDS: ZYVOX PO SCH ×2 (08:29→22:22)
[2018-07-30] MEDS: CULTURELLE PO SCH ×2 (08:29→22:21)
[2018-07-30] MEDS: FOLIC ACID PO SCH (08:29)
[2018-07-30] MEDS: PRINIVIL PO SCH (08:29)
[2018-07-30] MEDS: ATIVAN IV PRN (08:30)
[2018-07-30] MEDS: SODIUM CHLORIDE 0.9% INJ SCH (13:16)
[2018-07-30] MEDS: PROTONIX IV SCH ×2 (13:16→22:21)
--- NOTE | 2018-07-30 15:07 | PROGRESS NOTE ---
DATE: 07/30/2018 He was sleeping resting comfortably, was easy to arouse. He remains afebrile, temperature 98.4 degrees, pulse 82, respirations 15, blood pressure 130/78. Pupils are equal. No distended neck veins. Lungs are clear in all lung cervantes. Cardiovascular, regular rhythm, rate without murmur or S3. Abdomen is soft. Skin is warm and dry. Orantes catheter still in place. ASSESSMENT AND PLAN: 1. Treated for Clostridium difficile diarrhea ad presented with pancreatitis and probable pneumonia. He is on I think this is the 5th day of Zyvox and meropenem and p.o. vancomycin seems to be improving. 2. Acute kidney injury this is improved as well. 3. Bibasilar pneumonia treating. 4. Ethanol withdrawal on presentation and this is resolved. 5. Severe protein calorie malnutrition. Encouraging p.o. intake, is improving. 6. Alcoholism. Continue his multivitamin, thiamine, folate. 7. Anemia. Blood counts are stable. 8. Metabolic encephalopathy which multifactorial and this is improving. He has moved down to 4th floor. Review of his orders I do not see any change at this point . cc: Jan Prieto MD
[2018-07-30] MEDS: SSD CREAM TOP SCH ×2 (15:39→22:22)
[2018-07-31] MEDS: MERREM 2 GM in NS 100 ML IV SCH ×3 (01:33→16:55)
[2018-07-31] MEDS: LOPRESSOR IV SCH ×4 (01:33→18:21)
[2018-07-31] MEDS: HUMALOG SUBQ SCH ×7 (03:28→22:04)
[2018-07-31] MEDS: VANCOMYCIN ORAL SOLN PO SCH ×4 (03:30→22:00)
[2018-07-31 06:42] LABS: AGAP 9; BUN 18 mg/dL (8-22); CALCIUM 8.4 mg/dL (8.8-10.2); CHLORIDE 104 mmol/L (98-107); COSMO 291; CREATININE 0.7 mg/dL (0.7-1.2); ESTIMATED GFR > 60; GLUCOSE 98 mg/dL (70-104); MAGNESIUM 1.4 mg/dL (1.5-2.7); PHOSPHORUS 3.6 mg/dL (2.7-4.5); POTASSIUM 3.4 mmol/L (3.5-5.1); SODIUM 145 mmol/L (136-145); TCO2 32 mmol/L (25-35)
[2018-07-31] MEDS: FOLIC ACID PO SCH (08:28)
[2018-07-31] MEDS: CENTRUM SILVER PO SCH (08:31)
[2018-07-31] MEDS: NORVASC PO SCH (08:31)
[2018-07-31] MEDS: ZYVOX PO SCH ×2 (08:32→22:14)
[2018-07-31] MEDS: MAG-OX PO SCH ×2 (08:32→22:13)
[2018-07-31] MEDS: PRINIVIL PO SCH (08:32)
[2018-07-31] MEDS: CULTURELLE PO SCH ×2 (08:32→22:12)
[2018-07-31] MEDS: SSD CREAM TOP SCH ×2 (09:14→22:14)
[2018-07-31] MEDS: VITAMIN B-1 PO SCH (09:15)
[2018-07-31 10:05] LABS: ALB/GLOB RATIO 0.9; ALBUMIN 2.4 g/dL (3.5-5.0); DIRECT BILIRUBIN 0.4 mg/dL (0.00-0.20); TOTAL BILIRUBIN 0.94 mg/dL (0.20-1.00); TOTAL PROTEIN 5.2 g/dL (6.3-8.3)
[2018-07-31] MEDS: PROTONIX IV SCH ×2 (11:00→22:15)
[2018-07-31] MEDS: SODIUM CHLORIDE 0.9% INJ SCH (11:01)
--- NOTE | 2018-07-31 14:30 | GASTROENTEROLOGY PROGRESS NOTE ---
DATE: 07/31/2018 SUBJECTIVE: Resting in bed. He is feeling better. He denies any fevers, rigors, or chills. He is moving his bowels. Stools are liquid brown. He continues low oral intake. His abdominal pain is improved. OBJECTIVE: Vital signs: Temperature 98.4, pulse of 89, respiratory rate 20, blood pressure 133/78, saturating 89% on 6 L nasal cannula. Body weight of 177 pounds 4 ounces. BMI 27 kg. General: Moderately nourished, lying in bed in no acute distress HEENT: Pale conjunctivae. No icterus. Pupils equal, reactive to light. Neck: Supple. Abdomen: Distended. Tympanic on percussion. No rebound. Discomfort in the pelvic region. No rebound or guarding. Extremities: No cyanosis, clubbing. Neurologic: Alert, awake, oriented. LABORATORY STUDIES: His sodium 140, potassium 3.4, chloride 104, bicarb 30, anion gap 9, BUN of 18, creatinine 0.7, glucose of 98, calcium is 8.4, phosphorus 3.6, magnesium 1.4. Total bilirubin is 0.94, AST 108, ALT 62, total protein 5.2, albumin of 2.4, direct bilirubin 0.4, and lipase of 152 is trending down. His alkaline phosphatase is trending up. Blood culture x2 negative at 48 hours. Chest x-ray was done on 07/27/2018 which showed interval worsening with infiltrate atelectasis the lung bases. Small pleural effusions. Interval placement of left-sided PICC line. IMPRESSION AND PLAN: 1. Alcoholic pancreatitis. Continue low-fat diet. His TPN was stopped. Encourage to take Ensure 3 times daily. 2. Elevated alkaline phosphatase which was doubled since last check. We will check abdominal ultrasound to evaluate for any biliary sludge or any common bile duct stricture from pancreatitis. 3. Clostridium difficile colitis. Will continue on oral vancomycin 250 mg every 6 hours for total of 14 days. His last dose was on 08/04/2018. He will also continue on Culturelle 1 capsule p.o. b.i.d. for 6 weeks. 4. Alcoholism. The patient counseled to quit alcohol completely. 5. Elevated liver enzymes likely secondary alcoholic fatty liver disease. Continue to watch liver enzymes. We will obtain ultrasound to evaluate for any kind of other liver pathology. 6. Gastrointestinal prophylaxis with PPIs. 7. He will continue on vitamin B1 and folic acid. Alcohol withdrawal has resolved. 8. Anemia. Continue to watch for now. We will start on iron C b.i.d. once daily. 9. Bibasilar pneumonia. He is on antibiotics. 10. Altered mental status is improved. 11. Deconditioning. Continue to work with physical therapy. 12. Above plan discussed with the patient and all questions answered. Please call us with any further questions. cc: MD Jan Watkins MD MTDD
--- NOTE | 2018-07-31 14:41 | Diag Imaging Result Doc PS360 ---
EXAM: US ABDOMEN-COMPLETE INDICATION: elevated Alkaline Phosphatase COMPARISON: 07/16/2018 FINDINGS: There is ascites tracking around the liver and spleen. The gallbladder appears normal with no stones,, sludge, wall thickening, or pericholecystic fluid. The common bile duct is normal in diameter. Sonographic Cannon's sign was reported to be negative. The liver is somewhat prominent measuring up to 20 cm in length. No discrete hepatic mass is identified. Portal venous flow is hepatopetal. There is known recent pancreatitis and there is fluid around the pancreas. This could be either due to ascites or pancreatitis. The aorta and IVC are grossly unremarkable. The spleen is borderline prominent measuring up to 13.4 cm in length. The kidneys are grossly unremarkable. IMPRESSION: 1.Ascites. 2.Somewhat prominent liver. 3.Fluid around the pancreas which is probably related to the patient's recent pancreatitis. Electronically signed by Victoriano Fay 07/31/2018 2:39 PM
--- NOTE | 2018-07-31 15:13 | INFECTIOUS DISEASE PROGRESS NO ---
DATE: 07/31/2018 PRESENT ILLNESS: The patient has Clostridium difficile diarrhea, pancreatitis, and possible pneumonia. MEDICATIONS: This is day 5 of treatment with a combination of Zyvox and meropenem and day 10 of treatment with p.o. vancomycin. PHYSICAL EXAMINATION: Vital Signs: Temperature is 98.4 degrees, pulse 98, respirations 20, blood pressure 131/83. General: The patient looks much better today. He has been able to eat. He is not having nausea or vomiting and he is not coughing. Head/eyes/ears/nose/throat: He can hear my spoken words and see near objects. He does not have any white coating of his tongue. Neck: There is no pain when he moves his neck. Lungs: Clear to auscultation. Cardiovascular: Heart rate is regular. Abdomen: Slightly protuberant, but it is soft and nontender. Neurologic: The patient is awake. He can move his extremities. There is no tremor. Integument: No rash noted. LAB AND X-RAY: The patient's creatinine is 0.7. GFR is greater than 60. The alkaline phosphatase is 630. The AST is 108. Blood gases show a pH of 7.55, PO2 of 16, a pCO2 of 44. The only 2 studies that have not been done in quite a while are a CBC and a chest x-ray. ASSESSMENT AND PLAN: The patient has Clostridium difficile diarrhea, pancreatitis, and possible pneumonia. My plan is to order a CBC and a chest x-ray for tomorrow and continue with his current medications. COMORBIDITIES: He is an alcoholic and he is a cigarette smoker. cc: Naman Goldberg MD
--- NOTE | 2018-07-31 17:32 | PROGRESS NOTE ---
DATE: 07/31/2018 SUBJECTIVE: Mr. Pascal is feeling much better. Eating well. Bowels are moving. Seems to be getting a little stronger. OBJECTIVE: Vital signs: His temperature is 98.4 degrees, pulse 98, respirations 20, blood pressure 131/83. HEENT: Pupils are equal and round. Lungs: Clear in all lung cervantes. Cardiovascular Exam: Regular rhythm and rate without murmur or S3. Abdomen: Soft. Skin: Warm and dry. Urine output 2200 mL. ASSESSMENT AND PLAN: Treating for Clostridium difficile. His stool seemed to be a little more substance, a little more formed. He presented with pancreatitis, and we are treating him for pneumonia as well. This is day 5 for a combination of Zyvox, meropenem and day 10 with p.o. vancomycin. We will continue physical therapy and see if we can get him a little stronger. Blood pressure appears to be well controlled. His creatinine is down to 0.7. Good urine output. So, liver function transaminases seem to be going down. AST is 108. ALT is 62 so it seemed to be making progress. cc: Jan Prieto MD
[2018-07-31] MEDS: ICAR-C PO SCH (22:13)
[2018-08-01] MEDS: MERREM 2 GM in NS 100 ML IV SCH ×3 (00:17→16:26)
[2018-08-01] MEDS: HUMALOG SUBQ SCH ×6 (00:51→21:32)
[2018-08-01] MEDS: LOPRESSOR IV SCH ×4 (01:16→18:23)
[2018-08-01] MEDS: VANCOMYCIN ORAL SOLN PO SCH ×4 (03:00→21:31)
--- NOTE | 2018-08-01 07:15 | Diag Imaging Result Doc PS360 ---
EXAM: CHEST-1 VIEW HISTORY: pneumonia TECHNIQUE: Portable chest single view COMPARISON: 07/27/2018 FINDINGS: There is a moderate-sized right pleural effusion with atelectasis and possibly underlying infiltrates. There is a smaller left pleural effusion. No cardiomegaly. The left-sided PICC line is in good position on the current exam with the tip near the junction of the superior vena cava and right atrium. IMPRESSION: No significant change. Electronically signed by Breezy Butler 08/01/2018 7:13 AM
[2018-08-01 07:26] LABS: BASO# 0.04 X1000 (0.0-0.2); BASO% 0.4 % (0.0-0.8); EOS# 0.16 X1000 (0.0-0.7); EOS% 1.6 % (0.0-10.0); HEMATOCRIT 22.4 % (42.0-52.0); HEMOGLOBIN 7.1 g/dL (14.0-18.0); IMM GRAN# 0.18 X1000 (0.0-0.04); IMM GRAN% 1.8 % (0.0-0.5); LYMPH% 8.8 % (20.5-51.1); MCH 31.4 PG (27-31); MCHC 31.7 g/dL (33-37); MCV 99.1 FL (81-99); MONO% 5.9 % (1.7-9.3); MPV 10.6 FL (7.4-10.4); NEUT# 8.35 X1000 (1.4-6.5); NEUT% 81.5 % (42.2-75.2); PLT 172 X1000 (130-400); RBC 2.26 XMIL (4.7-6.1); RDW 15.6 % (11.5-14.5); WBC 10.23 X1000 (4.8-10.8)
[2018-08-01 07:38] LABS: AGAP 11; BUN 13 mg/dL (8-22); CHLORIDE 103 mmol/L (98-107); CHOLESTEROL 109 mg/dL (0-200); COSMO 285; CREATININE 0.7 mg/dL (0.7-1.2); ESTIMATED GFR > 60; GLUCOSE 97 mg/dL (70-104); GOT 132 U/L (10-34); MAGNESIUM 1.3 mg/dL (1.5-2.7); PHOSPHORUS 3.3 mg/dL (2.7-4.5); SODIUM 143 mmol/L (136-145); TCO2 29 mmol/L (25-35); TRIGLYCERIDES 141 mg/dL (39-160)
[2018-08-01] MEDS: FOLIC ACID PO SCH (09:07)
[2018-08-01] MEDS: CULTURELLE PO SCH ×2 (09:07→21:31)
[2018-08-01] MEDS: CENTRUM SILVER PO SCH (09:07)
[2018-08-01] MEDS: NORVASC PO SCH (09:07)
[2018-08-01] MEDS: VITAMIN B-1 PO SCH (09:07)
[2018-08-01] MEDS: MAG-OX PO SCH ×2 (09:07→21:31)
[2018-08-01] MEDS: ICAR-C PO SCH ×2 (09:07→21:31)
[2018-08-01] MEDS: PRINIVIL PO SCH (09:07)
[2018-08-01] MEDS: ZYVOX PO SCH ×2 (09:07→21:31)
[2018-08-01] MEDS: SSD CREAM TOP SCH ×2 (09:11→21:32)
--- NOTE | 2018-08-01 10:57 | INFECTIOUS DISEASE PROGRESS NO ---
DATE: 08/01/2018 PRESENT ILLNESS: The patient has Clostridium difficile diarrhea, pancreatitis, and a possible pneumonia. MEDICATIONS: This is day 6 of treatment with Zyvox and meropenem and day 11 of treatment with p.o. vancomycin. The Zyvox and meropenem in are treating the patient's pancreatitis and possible pneumonia, and the p.o. vancomycin is treating the patient's Clostridium difficile diarrhea. PHYSICAL EXAMINATION: Vital Signs: Temperature is 98 degrees, pulse 85, respirations 18, blood pressure is 145/89. General: This patient still looks ill but better than he has looked a week or 2 weeks ago. He has been eating and passing urine and bowel movement okay. He is not coughing. Head/eyes/ears/nose/throat: He can hear my spoken words and see near objects. He does not have any white patches on his tongue. Neck: No meningismus. Lungs: Clear to auscultation. Cardiovascular: Heart rate is regular. Abdomen: Remains slightly protuberant, but it is soft and nontender. Neurologic: Patient is awake. He can move his extremities. There is no tremor. Integument: No rash. LAB AND X-RAY: Chest x-ray shows a right-sided pleural effusion which is larger than the left- sided pleural effusion. There could be underlying pneumonia[place] [address], hemoglobin 7.1 a platelet count is a 172,000. Creatinine is 0.7. GFR is greater than 60. ASSESSMENT AND PLAN: The patient has, as mentioned above, Clostridium difficile diarrhea, pancreatitis, and possible pneumonia. For now, I plan to keep the patient's antibiotics going. COMORBIDITIES: The patient is an alcoholic and a cigarette smoker. cc: Naman Goldberg MD
[2018-08-01] MEDS: PROTONIX IV SCH ×2 (10:58→21:31)
[2018-08-01] MEDS: SODIUM CHLORIDE 0.9% INJ SCH ×2 (10:59→21:31)
[2018-08-01] MEDS ORDERED: KLOR-CON PO ONE (11:42)
--- NOTE | 2018-08-01 12:35 | PROGRESS NOTE ---
DATE: 08/01/2018 SUBJECTIVE: This patient is resting comfortably in bed. He is oriented x3. He is not complaining about pain at this moment. He did have a couple bowel movements, 1 yesterday and 1 today, and they were not liquid, they were more solid. We will continue with the same management. His hemoglobin dropped to 7.1 from 8.7. I will monitor this closely. If these drop more, I will go ahead and transfuse him. OBJECTIVE: HEENT: Head normocephalic, no trauma. PERRLA. He does have some lesions on his face. It looks like chronic dermatitis. Neck: Supple. No JVD. Central trachea. Chest: Clear to auscultation. No wheezing. No rales. Abdomen: Soft, slightly distended. Positive bowel sounds. Hyperactive. Extremities: No edema, no clubbing, no cyanosis. Neurological examination: The patient is sleepy, but arousable. Oriented x3. DIAGNOSTIC STUDIES: WBC 10.2, hemoglobin 7.1, hematocrit 22.4, platelet 172. Sodium 143, potassium 3, chloride 103, bicarbonate 29. BUN 13, creatinine 0.7, glucose 97, calcium 8, magnesium 1.3, lipase 152. AST 108 yesterday, ALT 162 yesterday, alkaline phosphatase 630 yesterday as well. He seems to be tolerating p.o. ASSESSMENT AND PLAN: 1. Clostridium difficile colitis. We will continue with same management. Infectious Disease Department on board. 2. Initially admitted with high anion gap metabolic acidosis, which is basically resolved. 3. Severe hypophosphatemia, concerning for refeeding syndrome versus just electrolyte abnormality associated with long-standing alcohol abuse. We will monitor. This has been replaced before. 4. Altered mental status/secondary to metabolic encephalopathy, resolved. 5. Rhabdomyolysis. His last creatinine kinase level was normal on 07/25/2018. 6. Acute kidney injury, resolved. 7. Alcohol-induced hepatitis. We have lab work from yesterday that showed elevated liver function tests. Hepatitis panel is negative. His AST is elevated, but compared with admission is better, as well as the AST, ALT, but the alkaline phosphatase is increasing I will get a new comprehensive metabolic panel in the morning. 8. Fatty liver disease secondary to alcohol abuse. 9. Severe pancreatitis associated with ileus; this is getting better. Gastroenterology following this patient. 10. Fluid overload. Likely in an attempt to resuscitate, he still has some lower extremity edema. He is tolerating oral. He is not on fluids at this moment. 11. Left lower lobe infiltrate/pneumonia. This patient is on antibiotics. Infectious Disease Department following this patient. 12. Severe weakness, continue physical therapy. 13. Anemia, we will continue to monitor. We will possibly transfuse as needed if the hemoglobin drops below 7. cc: Daniel Hills MD
[2018-08-01] MEDS: NS 1,000 ML IV SCH (16:27)
[2018-08-01] MEDS: ATIVAN IV PRN (18:23)
[2018-08-01] MEDS ORDERED: PNEUMOVAX 23 IM ONE (20:17)
--- NOTE | 2018-08-01 23:14 | PROVIDER PROGRESS NOTE ---
Progress Note SUBJECTIVE: No acute overnight events. Afebrile. No N/V. Tolerating diet. No abdominal pain, CP, diarrhea, rectal bleeding, or melena. OBJECTIVE: Last Vital Signs Temp 98.6 F 08/01/18 20:02 Pulse 90 08/01/18 20:02 Resp 19 08/01/18 20:02 BP 147/77 08/01/18 20:02 Pulse Ox 93 L 08/01/18 22:51 Height 5 ft 8 in Weight 177 lb 2 oz GEN: awake, alert, NAD HEENT: anicteric, MMM NECK: supple, no jvd PULM: CTAB, no wheezing ABD: soft NT, minimal distended, BS present EXT: edema improving NEURO: nonfocal LABS: 07/31/18 08/01/18 08/01/18 05:48 06:30 06:30 WBC 10.23 Hgb 7.1 L Plt Count 172 Sodium 143 Potassium 3.0 L Chloride 103 Carbon Dioxide 29 BUN 13 Creatinine 0.7 Glucose 97 Calcium 8.0 L Phosphorus 3.3 Magnesium 1.3 L Total Bilirubin 0.94 Direct Bilirubin 0.40 H AST 108 H 132 H ALT 62 H Alkaline Phosphatase 630 H Total Protein 5.2 L Albumin 2.4 L Abduominal US 07/31/2018 IMPRESSION: 1.Ascites. 2.Somewhat prominent liver. 3.Fluid around the pancreas which is probably related to the patient's recent pancreatitis. CXR 08/01 EXAM: CHEST-1 VIEW HISTORY: pneumonia TECHNIQUE: Portable chest single view COMPARISON: 07/27/2018 FINDINGS: There is a moderate-sized right pleural effusion with atelectasis and possibly underlying infiltrates. There is a smaller left pleural effusion. No cardiomegaly. The left-sided PICC line is in good position on the current exam with the tip near the junction of the super ior vena cava and right atrium. IMPRESSION: No significant change. A/P: Mr. Mike Pascal is a 48 year old man who presented with alcoholic pancreatitis found to have CDI and ANGEL. Course complicated with EOTH W/D, ileus, AMS, bibasilar PNA. He continues to improving. Pancreatitis resolved. Patient has had rising ALP likely secondary to recent TPN use. US negative for biliary obstruction. Unlikely PBC given acute rise. Cholestasis related to antibiotic therapy is possible. Tbili normal. Consider stopping antibiotics for pneumonia at this time as this could be contributing to elevated ALP. Please discuss with ID. #Elevated ALP: will check fractionated ALP to confirm biliary in origin vs extrahepatic; off TPN #Elevated AST/ALT: 2/2 to alcoholic liver disease #Alcoholic pancreatitis: cont low fat diet; ensure with meals #CDI: on vancomycin QID per ID #Bibasilar PNA: consider discontinuing antibiotics #Moderate right pleural effusion: noted #ETOH W/D: resolved #Severe protein calorie malnutrition: nutrition following #Alcoholism: cont oral thiamine, folate, MVI #Anemia: stable: no overt bleeding #AMS: resolved #DISPO: PT/OT, out of bed Will follow with you. Please call with questions
[2018-08-02] MEDS: HUMALOG SUBQ SCH ×6 (01:23→20:58)
[2018-08-02] MEDS: LOPRESSOR IV SCH ×3 (01:44→12:30)
[2018-08-02] MEDS: MERREM 2 GM in NS 100 ML IV SCH ×2 (01:44→09:34)
[2018-08-02] MEDS: VANCOMYCIN ORAL SOLN PO SCH ×4 (03:32→21:43)
[2018-08-02] MEDS: ATIVAN IV PRN ×4 (06:06→21:43)
[2018-08-02 06:35] LABS: BASO# 0.06 X1000 (0.0-0.2); BASO% 0.4 % (0.0-0.8); EOS# 0.13 X1000 (0.0-0.7); HEMATOCRIT 25.2 % (42.0-52.0); HEMOGLOBIN 8.1 g/dL (14.0-18.0); IMM GRAN# 0.29 X1000 (0.0-0.04); IMM GRAN% 2.2 % (0.0-0.5); LYMPH# 1.38 X1000 (1.2-3.4); LYMPH% 10.2 % (20.5-51.1); MCH 32.1 PG (27-31); MCHC 32.1 g/dL (33-37); MONO# 0.87 X1000 (0.11-0.59); MONO% 6.5 % (1.7-9.3); MPV 10.3 FL (7.4-10.4); NEUT# 10.74 X1000 (1.4-6.5); NEUT% 79.7 % (42.2-75.2); PLT 157 X1000 (130-400); RBC 2.52 XMIL (4.7-6.1); RDW 15.3 % (11.5-14.5); WBC 13.47 X1000 (4.8-10.8)
[2018-08-02 06:49] LABS: AGAP 14; ALB/GLOB RATIO 0.9; ALBUMIN 2.8 g/dL (3.5-5.0); ALKALINE PHOSPHATASE 639 U/L (32-122); BUN 11 mg/dL (8-22); CALCIUM 8.5 mg/dL (8.8-10.2); CHLORIDE 102 mmol/L (98-107); COSMO 284; CREATININE 0.7 mg/dL (0.7-1.2); ESTIMATED GFR > 60; GLUCOSE 117 mg/dL (70-104); GOT 124 U/L (10-34); GPT 86 U/L (10-44); POTASSIUM 3.4 mmol/L (3.5-5.1); SODIUM 142 mmol/L (136-145); TCO2 26 mmol/L (25-35)
[2018-08-02] MEDS: SSD CREAM TOP SCH ×2 (09:19→21:43)
[2018-08-02] MEDS: PROTONIX IV SCH (09:34)
[2018-08-02] MEDS: SODIUM CHLORIDE 0.9% INJ SCH (09:34)
[2018-08-02] MEDS: CENTRUM SILVER PO SCH (09:35)
[2018-08-02] MEDS: MAG-OX PO SCH ×2 (09:35→21:42)
[2018-08-02] MEDS: NORVASC PO SCH (09:35)
[2018-08-02] MEDS: ICAR-C PO SCH ×2 (09:35→21:42)
[2018-08-02] MEDS: ZYVOX PO SCH (09:35)
[2018-08-02] MEDS: CULTURELLE PO SCH ×2 (09:35→21:42)
[2018-08-02] MEDS: FOLIC ACID PO SCH (09:35)
[2018-08-02] MEDS: CATAPRES-TTS-2 TD SCH (09:35)
[2018-08-02] MEDS: PRINIVIL PO SCH (09:35)
[2018-08-02] MEDS: VITAMIN B-1 PO SCH (09:35)
[2018-08-02] MEDS ORDERED: KLOR-CON PO ONE (13:39)
--- NOTE | 2018-08-02 13:42 | INFECTIOUS DISEASE PROGRESS NO ---
DATE: 08/02/2018 PRESENT ILLNESS: Mr. Pascal is being treated for C. difficile diarrhea, pancreatitis, and a possible pneumonia. The patient also has elevated liver enzymes. MEDICATIONS: He has been receiving oral Zyvox 600 mg every 12 hours, meropenem 2 g IV every 8 hours, and oral vancomycin 250 mg every 6 hours. PHYSICAL EXAMINATION: Vital Signs: Temperature is 97.9 degrees, pulse rate 91, respiratory rate 18, blood pressure 149/89. O2 saturation is 92% on 5 L nasal cannula. General: This is a chronically ill-appearing, middle-aged gentleman. He is lying in the bed, currently in no acute distress. HEENT: He is atraumatic, normocephalic. Oral mucous membranes are pink and moist. Conjunctivae are pale. Neck: Supple. Trachea is midline. Cardiovascular: Heart rate and rhythm are regular. Normal sinus rhythm on the monitor. There is 2+ edema pretibially. Abdomen: Mildly firm and nontender on palpation. Bowel sounds are active. Respiratory: Lung sounds are clear in the upper lobes. Diminished in the bases. Neurologic: He is drowsy and lethargic but arousable and will follow commands. Integumentary: There is a PICC line in place to the left upper arm. That site is without edema, erythema, or drainage. LABORATORY AND X-RAY: Today, his white count is 13.47, hemoglobin 8.1, platelet count 157,000. Creatinine is 0.7. Estimated GFR greater than 60. Total bilirubin 1.2, AST 124, ALT 86, alkaline phosphatase 639. No imaging reports today. ASSESSMENT AND PLAN: Ms. Pascal is being treated for pneumonia, pancreatitis, and Clostridium difficile diarrhea. After speaking with Dr. Dawson, he believes that the patient has completed treatment for the pancreatitis, and he would like the patient to be off of his antibiotics if possible due to his elevated alkaline phosphatase. We will go ahead and discontinue meropenem and Zyvox at this time. We will monitor to see how he is doing and recheck blood work again. There is a mild increase in his leukocytosis. For now, we will continue the oral vancomycin for the Clostridium difficile. I have also elevated the manual foot gatch of the bed due to his lower extremity edema. These plans have been discussed with and recommended by Dr. Goldberg. COMORBIDITIES: For Mr. Pascal include that he is a cigarette smoker and alcohol abuser with generalized deconditioning due to prolonged hospitalization. Dictated by POLA Nina for Naman Goldberg MD cc: Naman Goldberg MD MTDD
[2018-08-02] MEDS ORDERED: LASIX IV ONE (15:26)
[2018-08-02] MEDS: APRESOLINE PO SCH (16:25)
--- NOTE | 2018-08-02 18:03 | PROGRESS NOTE ---
DATE: 08/02/2018 SUBJECTIVE: Patient is resting comfortably in bed. He is alert and he is oriented x 3. He is complaining of short shortness of breath and actually he has been using a nonrebreathing mask. X- ray done yesterday showed a moderate sized right pleural effusion with atelectasis and possible underlying infiltrate, and also a small left pleural effusion. He has lower extremity edema, 3+. His kidney function has been stable for the past few days. I will replace the potassium level and I will ask for a new magnesium which has been low before, as well as phosphorus. Since the kidney function has been good for the past few days, I will start this patient on diuretics due to his fluid overload and will monitor this patient closely. OBJECTIVE: Vital Signs: Temperature 97.4, pulse 101, respiratory rate 20, blood pressure 162/98. Oxygen saturation 93% on a mask ,15% L. HEENT: Head normocephalic, no trauma. PERRLA. He does have some lesions on his face and they look like chronic dermatitis. Neck: Supple. No JVD. Central trachea. Chest: Decreased breath sounds globally with some crackles mostly on the left side, the right side breath sounds are decreased, and they get better at the level of the apex. He does have some scattered crepitus. Abdomen: Distended. He does have bowel sounds. Is soft. Extremities: There is 2+ to 3+ lower extremity edema. No clubbing. No cyanosis. Neurologic: The patient is alert and oriented x 3. Generalized weakness. LABORATORY: WBC 13.4, hemoglobin 8.1, hematocrit 25.2, platelets 157,000. Sodium 142, potassium 3.4, chloride 102, bicarbonate 26, BUN 11, creatinine 0.7, glucose 117, calcium 8.5, AST 124, ALT 86, alkaline phosphatase 639, albumin 2.8. ASSESSMENT AND PLAN: 1. C difficile colitis. We will continue with the same management. Infectious Disease Department on board. Continue with vancomycin p.o. 2. Initially admitted with high anion gap metabolic acidosis which basically is much better, resolved. 3. Severe hypophosphatemia concerning for refeeding syndrome, versus just electrolyte abnormalities associated with long-standing alcohol abuse. We will monitor. This has been replaced before. I will get a new set of phosphorus in the morning. 4. Altered mental status, secondary to metabolic encephalopathy and/or alcohol abuse, resolved. 5. Rhabdomyolysis. His last CK level was normal on 07/25/2018. 6. Acute kidney injury, resolved. 7. Alcoholic hepatitis. His LFTs are trending up. We believe probably this is also related to medications, we have stopped the antibiotics. We will continue to monitor. 8. Fluid overload with right-sided pleural effusion. We will start this patient on Lasix. We will monitor her kidney function. 9. Fatty liver secondary to alcohol abuse, aware. 10. Severe pancreatitis associated with ileus, better. Gastroenterology Department following this patient. 11. Left lower lobe pneumonia, he already completed the treatment with antibiotics. Infectious Disease Department on board. Antibiotics were stopped today. 12. Severe weakness and physical deconditioning. Continue physical therapy. 13. Anemia. We will monitor. We will transfuse this patient if the hemoglobin drops below 7. 14. Hypertension. I will modify some of his medications. I will stop the metoprolol and put this patient on hydralazine, will continue with clonidine but p.o. Continue with lisinopril as well. cc: Daniel Hills MD MTDD
[2018-08-02] MEDS: PROTONIX PO SCH (21:42)
[2018-08-02] MEDS: CATAPRES PO SCH (21:42)
--- NOTE | 2018-08-02 22:59 | PROVIDER PROGRESS NOTE ---
Progress Note SUBJECTIVE: No acute overnight events. No particular complaints. SOB improving. No abdominal pain. OBJECTIVE: Last Vital Signs Temp 98.6 F 08/02/18 19:20 Pulse 100 H 08/02/18 19:20 Resp 20 08/02/18 19:20 BP 145/69 08/02/18 19:20 Pulse Ox 97 08/02/18 19:20 Height 5 ft 8 in Weight 167 lb 8 oz GEN: awake, alert, NAD HEENT: anicteric, MMM NECK: supple, no jvd PULM: bibasilar crackles, no wheezing ABD: soft NT, minimal distended, BS present EXT: edema improving NEURO: nonfocal LABS: 08/02/18 08/02/18 05:53 05:53 WBC 13.47 H Hgb 8.1 L Plt Count 157 Sodium 142 Potassium 3.4 L Chloride 102 Carbon Dioxide 26 BUN 11 Creatinine 0.7 Glucose 117 H Total Bilirubin 1.20 H AST 124 H ALT 86 H Alkaline Phosphatase 639 H Total Protein 6.0 L Albumin 2.8 L A/P: Mr. Mike Pascal is a 48 year old man who presented with alcoholic pancreatitis found to have CDI and ANGEL. Course complicated with EOTH W/D, ileus, AMS, bibasilar PNA. Pancreatitis resolved. Patient has had rising ALP likely secondary to recent TPN vs cholestasis of sepsis, vs related to antibiotic therapy. No biliary obstruction on recent US. #Elevated ALP: abx stopped today: continue to trend LFTs #Elevated AST/ALT: 2/2 to alcoholic liver disease #Alcoholic pancreatitis: cont low fat diet; ensure with meals #CDI: on vancomycin QID per ID #Bibasilar PNA: completed 7 days of linezolid and merrem #Moderate right pleural effusion: noted; patient being diuresed per primary #ETOH W/D: resolved #Severe protein calorie malnutrition: nutrition following #Alcoholism: cont oral thiamine, folate, MVI #Anemia: stable: no overt bleeding #AMS: resolved #DISPO: PT/OT, out of bed Will follow with you. Please call with questions
[2018-08-03] MEDS: HUMALOG SUBQ SCH ×7 (01:15→23:57)
[2018-08-03] MEDS: ATIVAN IV PRN ×2 (01:50→08:29)
[2018-08-03] MEDS: VANCOMYCIN ORAL SOLN PO SCH ×4 (01:51→21:17)
[2018-08-03 07:19] LABS: INR 1.15; PROTIME 15.7 Seconds (11.0-16.0); PTT 31.2 Seconds (22.3-41.8)
[2018-08-03 07:35] LABS: CHLORIDE 101 mmol/L (98-107); POTASSIUM 3.1 mmol/L (3.5-5.1); SODIUM 142 mmol/L (136-145)
--- NOTE | 2018-08-03 07:35 | Diag Imaging Result Doc PS360 ---
EXAM: CHEST-PORTABLE INDICATION: dyspnea TECHNIQUE: One view COMPARISON: 08/01/2018 FINDINGS: The left PICC line is in stable position. There is at least a moderate-sized right pleural effusion and a small left effusion with adjacent atelectasis and/or infiltrate. These are stable. No new consolidation is identified. Cardiac silhouette is stable. IMPRESSION: Stable chest. Electronically signed by Victoriano Fay 08/03/2018 7:33 AM
[2018-08-03 07:36] LABS: AGAP 11; ALBUMIN 2.7 g/dL (3.5-5.0); ALKALINE PHOSPHATASE 519 U/L (32-122); BUN 10 mg/dL (8-22); CALCIUM 8.2 mg/dL (8.8-10.2); COSMO 283; CREATININE 0.7 mg/dL (0.7-1.2); ESTIMATED GFR > 60; GLUCOSE 106 mg/dL (70-104); GOT 94 U/L (10-34); GPT 68 U/L (10-44); MAGNESIUM 1.4 mg/dL (1.5-2.7); PHOSPHORUS 3.1 mg/dL (2.7-4.5); TCO2 30 mmol/L (25-35); TOTAL BILIRUBIN 1.06 mg/dL (0.20-1.00); TOTAL PROTEIN 5.5 g/dL (6.3-8.3)
[2018-08-03 08:15] LABS: BASO# 0.03 X1000 (0.0-0.2); BASO% 0.3 % (0.0-0.8); EOS# 0.17 X1000 (0.0-0.7); EOS% 1.8 % (0.0-10.0); HEMATOCRIT 21.8 % (42.0-52.0); HEMOGLOBIN 7.1 g/dL (14.0-18.0); IMM GRAN# 0.14 X1000 (0.0-0.04); IMM GRAN% 1.5 % (0.0-0.5); LYMPH# 1.21 X1000 (1.2-3.4); LYMPH% 13.1 % (20.5-51.1); MCH 32.6 PG (27-31); MCHC 32.6 g/dL (33-37); MONO# 0.81 X1000 (0.11-0.59); MONO% 8.8 % (1.7-9.3); NEUT# 6.85 X1000 (1.4-6.5); NEUT% 74.5 % (42.2-75.2); PLT 137 X1000 (130-400); RBC 2.18 XMIL (4.7-6.1); RDW 15.6 % (11.5-14.5); WBC 9.21 X1000 (4.8-10.8)
[2018-08-03] MEDS: LASIX IV SCH ×2 (08:33→21:15)
--- NOTE | 2018-08-03 11:01 | Diag Imaging Result Doc PS360 ---
EXAM: CHEST-2 VIEWS INDICATION: POST RIGHT THORA TECHNIQUE: 2 views COMPARISON: 08/03/2018 FINDINGS: There is stable elevation of the right hemidiaphragm. There has been improvement of the right pleural effusion status post right thoracentesis. There is no evidence of pneumothorax status post thoracentesis. The left pleural effusion is stable. Cardiac silhouette is unchanged. IMPRESSION: Improvement of right pleural effusion status post thoracentesis with no evidence of postprocedural pneumothorax. Electronically signed by Victoriano Fay 08/03/2018 10:59 AM
--- NOTE | 2018-08-03 11:25 | Diag Imaging Result Doc PS360 ---
EXAM: US THORACENTESIS W/IMAGE GUIDE INDICATION: Right pleural effusion TECHNIQUE: COMPARISON: None. FINDINGS: Risks, benefits, and alternatives were discussed with the patient and informed consent was obtained. Patient was prepped and draped in sterile fashion and local anesthesia was achieved with 1% lidocaine solution. Using ultrasound guidance, a large bore catheter was inserted into the right pleural space and 800 mL of straw-colored serous fluid was aspirated. There were no known complications. A postprocedural chest radiograph showed no pneumothorax. IMPRESSION: Technically successful ultrasound-guided right thoracentesis. Electronically signed by Victoriano Fay 08/03/2018 11:23 AM
[2018-08-03] MEDS: PROTONIX PO SCH ×2 (11:47→21:14)
[2018-08-03] MEDS: CULTURELLE PO SCH ×2 (11:47→21:14)
[2018-08-03] MEDS: CATAPRES PO SCH ×2 (11:47→21:14)
[2018-08-03] MEDS: KLOR-CON PO SCH ×2 (11:47→21:14)
[2018-08-03] MEDS: PRINIVIL PO SCH (11:47)
[2018-08-03] MEDS: ICAR-C PO SCH ×2 (11:47→21:14)
[2018-08-03] MEDS: MAG-OX PO SCH (11:48)
[2018-08-03] MEDS: FOLIC ACID PO SCH (11:48)
[2018-08-03] MEDS: VITAMIN B-1 PO SCH (11:48)
[2018-08-03] MEDS: NORVASC PO SCH (11:48)
[2018-08-03] MEDS: APRESOLINE PO SCH ×4 (11:48→21:26)
[2018-08-03] MEDS: SSD CREAM TOP SCH ×2 (11:48→21:16)
[2018-08-03] MEDS: CENTRUM SILVER PO SCH (11:48)
[2018-08-03] MEDS: CALMOSEPTINE OINTMENT TOP PRN (12:02)
--- NOTE | 2018-08-03 14:31 | GASTROENTEROLOGY PROGRESS NOTE ---
DATE: 08/03/2018 SUBJECTIVE: The patient is resting in bed. He is complaining of shortness of breath. He was put on nonrebreather. Primary care team will be addressing it. He has a history of smoking. His abdominal pain is improved. He has been moving his bowels and eating better than before. Denies any fevers, rigors, or chills. OBJECTIVE: Vital Signs: Temperature 98 degrees, pulse of 99, respiratory rate 24, blood pressure 131/77, saturating 94% on nonrebreather at 15 L/minute. Body weight of 167 pounds 1 ounce, BMI 25.4 kg/m. General: The patient is thinly built, lying in bed, currently in respiratory distress. HEENT: Positive pallor. No icterus. Face mask in place. Neck: Supple. He does have signs of tachypnea. Abdomen: Protuberant. Mild discomfort. No rebound. Extremities: No cyanosis or clubbing. Neurologic: Alert, awake, oriented x3. IMAGING AND LABORATORY DATA: Hemoglobin and hematocrit 7.1 and 21.8, white count of 9.21, platelet count of 137,000, MCV of 100. Sodium 142, potassium 3.1, chloride 101, bicarb of 39, BUN of 10, creatinine 0.7, glucose of 106, calcium 8.2. Phosphorus 3.1, magnesium 1.4. Total bilirubin 1.06, AST 94, ALT 68, alkaline phosphatase of 590, Blood culture was negative after 5 days from 07/25/2018. His chest x-ray was done, which showed left PICC line in stable position. There is at least a moderate sized right pleural effusion and a small left pleural effusion with adjacent atelectasis or infiltrate. These are stable. No new consolidations identified. IMPRESSION AND PLAN: 1. Elevated alkaline phosphatase. Trending down. Continue to follow. Likely secondary to total parenteral nutrition or cholestasis of sepsis or antibiotic therapy. Ultrasound was negative for any kind of common bile duct obstruction. 2. Elevated liver enzymes, which are trending down. Continue to follow. Likely secondary to alcoholic liver disease. 3. Alcoholic pancreatitis. Continue low-fat diet. Ensure with meals. 4. Clostridium difficile colitis. He is on vancomycin 4 times daily per Infectious Disease. He will continue Culturelle 1 capsule by mouth twice daily. 5. Bilateral pneumonia, and now currently developing respiratory distress. This will be addressed with the primary care team. He may need a Pulmonary consultation. 6. Moderate-sized right pleural effusion noted on chest x-ray, being monitored by the primary care team. 7. Alcohol withdrawal, resolved. 8. Alcoholism. Continue multivitamin, folate, and oral thiamine. 9. Anemia. Continue to watch for now, and transfuse as needed. 10. Altered mental status is resolved. 11. Chronic kidney disease, improved. 12. Disposition. The patient will follow up in the clinic in 4 weeks after discharge. He may need upper endoscopy and colonoscopy for workup of anemia once he recovers from acute issues. 13. He will continue iron C b.i.d. and multivitamin for anemia. 14. Will give him Culturelle 1 capsule p.o. b.i.d. for 6 weeks for Clostridium difficile colitis. 15. The patient was counseled to quit alcohol completely. 16. Above was discussed with the patient, and all questions were answered. Please call us with any further questions. cc: Ben Simental MD MTDD
[2018-08-03] MEDS ORDERED: MAGNESIUM SULFATE 2 GM/S.W.I. 2 GM/50 ML IVPB IV ONE (14:37)
--- NOTE | 2018-08-03 15:18 | PROGRESS NOTE ---
DATE: 08/03/2018 SUBJECTIVE: This patient is still complaining of some shortness of breath so I check an x-ray and he had right moderate pleural effusion. He was sent to Radiology to get a paracentesis and they removed 800 mL of fluid from the right side. Chest x-ray after the procedure is unremarkable with improvement of the right pleural effusion. He seems to be getting better slowly. He is still really weak but he is alert and following commands. OBJECTIVE: Vital Signs: Temperature 98.2, pulse 87, respiratory rate 24, blood pressure 118/74. Oxygen saturation 99% on nasal cannula. HEENT: Head normocephalic, no trauma. PERRLA. He does have some chronic face lesions, they look like chronic dermatitis. Neck: Supple. No JVD. Central trachea. Chest: Decreased breath sounds globally with some crackles mostly on the left side, the right side of the chest sounds better after the procedure, some crepitus at the bases and scattered rales. Abdomen: Distended. He does have some bowel sounds. Soft. Extremities: There is 2+ to 3+ lower extremity edema. No clubbing. No cyanosis. Neurologic: The patient is alert. He is oriented. He is following commands. Generalized weakness. LABORATORY: WBC 9.2, hemoglobin 7.1, hematocrit 21.8, platelets 137,000. Sodium 142, potassium 3.1, chloride 101, bicarbonate 30, BUN 10, creatinine 0.7, glucose 106, calcium 8.2, magnesium 1.4, AST 94, ALT 68, alkaline phosphatase 519, albumin 2.7. ASSESSMENT AND PLAN: 1. Clostridium difficile colitis. Continue with the same management. Continue with vancomycin orally. 2. Initially admitted with high anion gap metabolic acidosis which basically has resolved. 3. Severe hypophosphatemia. Continue for refeeding syndrome versus just electrolyte abnormalities associated with long-standing alcohol abuse. Will monitor. Seems to be normal today. 4. Altered mental status, resolved, likely secondary to metabolic encephalopathy and/or alcohol abuse. 5. Rhabdomyolysis, resolved. 6. Acute kidney injury, resolved. 7. Alcoholic hepatitis. His liver function tests have been trending up, but now seems to be more stable. Will monitor. 8. Fluid overload with right-sided pleural effusion, status post thoracentesis where 800 mL of fluid has been removed. Continue with Lasix. 9. Fatty liver secondary to alcohol abuse, aware. 10. Severe pancreatitis associated with ileus, better. 11. Left lower lobe pneumonia. He already completed treatment with antibiotics. Infectious Disease Department on board. Antibiotics were stopped yesterday. 12. Severe weakness and physical deconditioning. Continue physical therapy. 13. Abnormal liver function tests probably secondary to medication, stable. 14. Anemia. Will monitor. Will transfuse if the hemoglobin drops below 7. 15. Hypertension. Blood pressure seems to be stable. I will continue with the same management for now. I modified his regimen yesterday. cc: Daniel Hills MD
[2018-08-04] MEDS: VANCOMYCIN ORAL SOLN PO SCH ×3 (02:03→17:37)
[2018-08-04] MEDS: HUMALOG SUBQ SCH ×5 (04:52→23:48)
[2018-08-04 07:09] LABS: BASO# 0.03 X1000 (0.0-0.2); BASO% 0.4 % (0.0-0.8); EOS# 0.18 X1000 (0.0-0.7); EOS% 2.3 % (0.0-10.0); HEMATOCRIT 19.6 % (42.0-52.0); HEMOGLOBIN 6.2 g/dL (14.0-18.0); IMM GRAN# 0.09 X1000 (0.0-0.04); IMM GRAN% 1.1 % (0.0-0.5); LYMPH# 1.07 X1000 (1.2-3.4); LYMPH% 13.6 % (20.5-51.1); MCH 31.8 PG (27-31); MCHC 31.6 g/dL (33-37); MCV 100.5 FL (81-99); MONO# 0.75 X1000 (0.11-0.59); MONO% 9.6 % (1.7-9.3); MPV 10.2 FL (7.4-10.4); NEUT# 5.72 X1000 (1.4-6.5); PLT 123 X1000 (130-400); RBC 1.95 XMIL (4.7-6.1); RDW 15.6 % (11.5-14.5); WBC 7.84 X1000 (4.8-10.8)
[2018-08-04 07:27] LABS: AGAP 8; ALBUMIN 2.6 g/dL (3.5-5.0); ALKALINE PHOSPHATASE 466 U/L (32-122); BUN 10 mg/dL (8-22); CALCIUM 8.1 mg/dL (8.8-10.2); CHLORIDE 103 mmol/L (98-107); COSMO 280; CREATININE 0.7 mg/dL (0.7-1.2); ESTIMATED GFR > 60; GLUCOSE 102 mg/dL (70-104); GOT 103 U/L (10-34); GPT 70 U/L (10-44); POTASSIUM 3.4 mmol/L (3.5-5.1); SODIUM 141 mmol/L (136-145); TCO2 30 mmol/L (25-35); TOTAL BILIRUBIN 0.84 mg/dL (0.20-1.00); TOTAL PROTEIN 5.3 g/dL (6.3-8.3)
[2018-08-04] MEDS ORDERED: KLOR-CON PO ONE (09:34)
[2018-08-04] MEDS: VITAMIN B-1 PO SCH (09:57)
[2018-08-04] MEDS: ICAR-C PO SCH ×2 (09:57→21:27)
[2018-08-04] MEDS: CENTRUM SILVER PO SCH (09:58)
[2018-08-04] MEDS: NORVASC PO SCH (09:58)
[2018-08-04] MEDS: CULTURELLE PO SCH ×2 (09:58→21:27)
[2018-08-04] MEDS: CATAPRES PO SCH (09:58)
[2018-08-04] MEDS: PRINIVIL PO SCH (09:58)
[2018-08-04] MEDS: PROTONIX PO SCH ×2 (09:58→21:33)
[2018-08-04] MEDS: APRESOLINE PO SCH ×3 (09:58→21:27)
[2018-08-04] MEDS: FOLIC ACID PO SCH (09:59)
[2018-08-04] MEDS: SSD CREAM TOP SCH (10:05)
--- NOTE | 2018-08-04 12:44 | PROGRESS NOTE ---
DATE: 08/04/2018 SUBJECTIVE: This patient's breathing is much better. He is status post thoracentesis, and they removed 800 mL of fluid from his right side. Chest x-ray after the procedure showed improvement of the right pleural effusion. He seems to be doing much better today. His fluid overload is almost resolved so I will decrease the dose of the Lasix from twice a day to once a day. He is alert and he is oriented. No signs of withdrawal. He does have right upper extremity swelling and weakness. Neurology Department has been consulted. OBJECTIVE: Vital Signs: Temperature 98.2 degrees, pulse 91, respiratory rate 22, blood pressure 131/71, and oxygen saturation 92 on 4 L of nasal cannula. HEENT and Neck: Head normocephalic. No trauma. PERRLA. He does have some chronic lesions on his face, and they look like chronic dermatitis. Neck is supple. No JVD. Central trachea. Chest: Decreased breath sounds globally with some rales at the bases. Abdomen: Soft. Distended. Positive bowel sounds. Extremities: Trace lower extremity edema. No clubbing. No cyanosis. Neurological: The patient is alert. He is oriented. He is following commands. He does have right upper extremity around 3/5. LABORATORY: WBC 7.8, hemoglobin 6.2, hematocrit 19.6, and platelets 123,000. Sodium 141, potassium 3.4, chloride 103, bicarbonate 30, BUN 10, creatinine 0.7 glucose 102, calcium 8.1, AST 103, ALT 70, alkaline phosphatase 466, and albumin 2.6. ASSESSMENT AND PLAN: 1. C. Diff colitis. Continue with same management. I believe this is getting better. 2. Initially admitted with high anion gap metabolic acidosis which basically resolved. 3. Severe hypophosphatemia, likely secondary to refeeding syndrome versus just electrolyte abnormalities associated with long-standing alcohol abuse. 4. Altered mental status, resolved. 5. Rhabdomyolysis resolved. 6. Acute kidney injury resolved. 7. Alcoholic hepatitis. His LFTs are still elevated, but alkaline phosphatase is getting better. 8. Fluid overload with right-sided pleural effusion status post thoracentesis where 800 mL of fluid has been removed. Continue with Lasix, but I will decrease the dose to once a day. 9. Fatty liver secondary to alcohol abuse. Aware. 10. Severe pancreatitis associated with ileus. This is better. He is not having pain. He is tolerating p.o. 11. Left lower lobe pneumonia. He already completed the course of his antibiotics. 12. Severe weakness with right upper extremity weakness. Neurology Department has been consulted. We will monitor. 13. Abnormal liver function test, probably secondary to medication. Stable. Also can be related to alcohol abuse. 14. Anemia. We will monitor. His hemoglobin dropped to 6.2. I will give him 1 unit of PRBC. 15. Hypertension stable. Continue with same management. cc: Daniel Hills MD
--- NOTE | 2018-08-04 18:20 | CONSULTATION ---
DATE OF CONSULTATION: 08/04/2018 REASON FOR CONSULTATION: Mr. Pascal reports some numbness, discomfort and weakness in the right arm and hand. HISTORY OF PRESENT ILLNESS: History from the patient is a little bit inconsistent and varies somewhat with the history he had reported earlier. Today, he told me that he began to notice swelling in his abdomen and right limbs approximately 3 weeks ago. He began to have a little bit of numbness in the right hand around that time. More prominent symptoms began within the last week, with prominent numbness in the hand, alex pain in the hand, pain with flexing the right arm at the elbow and weakness in the right hand and fingers. He believes this has been a little bit worse in the last few days than a few days earlier. He has not had similar symptoms in the right leg. Right leg and abdomen swelling are much improved. He has not had symptoms in the left limbs. He reports no history of head or neck injury. He reports he has not had right arm injury, but he was discovered with right arm swelling and evidence of rhabdomyolysis. CK was initially 4000, as high as 15,000 and back down to normal at 138 now. There is history of significant ethanol use. He was managed for potential ethanol withdrawal earlier this admission. He had an altered mental state, which has resolved. Liver enzymes have been elevated. Now, there is evidence of left lower lobe pneumonia and possibility of Clostridia difficile colitis. He had a lot of metabolic abnormalities earlier, which are improved. Noncontrast CT of the head 07/23/2018 was unremarkable and unchanged compared to 07/16/2018 scan. PHYSICAL EXAMINATION: On exam, Mr. Pascal is awake, alert, attentive. He seems appropriate. Strength is normal in the left arm and in both legs. He has good power proximally in the right arm, but is somewhat limited by discomfort. I can overcome the right pronator teres grading 4/5; right finger flexors all 4/5, except 2nd finger 2/5; right opponens pollicis 3/5. He has good power in the right finger extensors, wrist extensor, thumb extensor, 1st dorsal interosseous, and finger spreaders. There is good power in the right biceps, triceps and brachioradialis. He reports diminished pinprick appreciation, mostly thenar territory of the right hand. He has good pinprick across all surfaces of the left hand. Proprioception is good at the second finger PIP joint bilaterally. Hands are warm. Radial pulses are symmetric. Tinel sign is minimal over the right median nerve at the wrist. There is no Tinel sign at the elbow over the right ulnar nerve. IMPRESSION AND PLAN: Right arm pain, numbness, weakness. 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 The clinical deficit is not severe and I do not think we have to do anything urgently. I encouraged him to be careful with his right hand and to avoid repetitive use. We can follow this for a few days and if he improves clinically, we may continue to follow. If he does not show substantial improvement in a few days, we might consider nerve conduction study. I encouraged him to reduce ethanol intake or abstain. I encouraged him to have good nutrition, particularly B vitamins. There is some evidence of peripheral neuropathy in the legs. We discussed possibility that he has preexisting alcohol related peripheral neuropathy which might predispose him to a compression neuropathy, and I encouraged him to be careful with gait and activities. Thanks for asking Neurology to see Mr. Pascal. cc: MD CONRADO Castillo III
[2018-08-04] MEDS: ATIVAN IV PRN (18:55)
--- NOTE | 2018-08-04 21:57 | PROVIDER PROGRESS NOTE ---
Progress Note SUBJECTIVE: No acute overnight events. Afebrile. Patient reports significant improvement in SOB after right thoracentesis with 800mL fluid removed. No CP, abdominal pain, rectal bleeding, diarrhea. He is tolerating diet. He complains of RUE swelling and weakness. OBJECTIVE: Last Vital Signs Temp 98.6 F 08/04/18 20:12 Pulse 85 08/04/18 20:12 Resp 20 08/04/18 20:12 BP 129/70 08/04/18 20:12 Pulse Ox 100 08/04/18 20:12 Height 5 ft 8 in Weight 157 lb 6 oz GEN: awake, alert, NAD HEENT: anicteric, MMM NECK: supple, no jvd CV: RRR, no murmurs PULM: decreased BS at bases, Normal WOB, no wheezing ABD: mild distension, not tense, BS present, NT, no ascites EXT: no cce LEs, RUE with swelling NEURO: 3/5 RUE strength, patient unable to make fist with right hand, no asterixis LABS: 08/04/18 08/04/18 06:24 06:24 WBC 7.84 Hgb 6.2 L Plt Count 123 L Sodium 141 Potassium 3.4 L Chloride 103 BUN 10 Creatinine 0.7 AST 103 H ALT 70 H Alkaline Phosphatase 466 H Total Protein 5.3 L Albumin 2.6 L A/P: Mr. Mike Pascal is a 48 year old man who presented with alcoholic pancrea titis found to have CDI and ANGEL. Course complicated with EOTH W/D, ileus, AMS, bibasilar PNA. Pancreatitis resolved. Patient has had rising ALP likely secondary to recent TPN vs cholestasis of sepsis, vs related to antibiotic therapy. No biliary obstruction on recent US. Patient complains of RUE weakness concerning for a nerve neuropathy. #RUE weakness: neurology consulted; appreciate recs #Elevated ALP: IV abx stopped; improving; continue to trend LFTs #Elevated AST/ALT: 2/2 to alcoholic liver disease #Alcoholic pancreatitis: cont low fat diet; ensure with meals #CDI: on lactobacillus and vancomycin QID per ID #Bibasilar PNA: completed 7 days of linezolid and merrem #Moderate right pleural effusion: s/p thoracentesis 08/03; incentive spirometry encouraged, supplemental O2 #ETOH W/D: resolved #Severe protein calorie malnutrition: nutrition following #Alcoholism: cont oral thiamine, folate, MVI #Anemia: stable: no overt bleeding; worsening without overt bleeding; transfuse 1 unit pRBC; on PPI BID #AMS: resolved #DISPO: PT/OT, out of bed Will follow with you. Please call with questions
--- NOTE | 2018-08-04 22:40 | INFECTIOUS DISEASE PROGRESS NO ---
DATE: 08/04/2018 The patient does not appear to have an active infection at this time. He is on no antibiotics. I am signing off on the patient's case but I am available to see him on a p.r.n. basis. cc: Naman Goldberg MD
[2018-08-05] MEDS: ATIVAN IV PRN ×4 (03:18→21:20)
[2018-08-05] MEDS: SSD CREAM TOP SCH ×3 (03:24→21:13)
[2018-08-05] MEDS: HUMALOG SUBQ SCH ×5 (04:50→21:18)
[2018-08-05 06:48] LABS: BASO# 0.07 X1000 (0.0-0.2); BASO% 0.7 % (0.0-0.8); EOS# 0.18 X1000 (0.0-0.7); EOS% 1.8 % (0.0-10.0); HEMATOCRIT 23.9 % (42.0-52.0); HEMOGLOBIN 7.9 g/dL (14.0-18.0); IMM GRAN# 0.22 X1000 (0.0-0.04); IMM GRAN% 2.2 % (0.0-0.5); LYMPH# 1.31 X1000 (1.2-3.4); MCH 32.2 PG (27-31); MCHC 33.1 g/dL (33-37); MCV 97.6 FL (81-99); MONO# 1.14 X1000 (0.11-0.59); MONO% 11.3 % (1.7-9.3); NEUT# 7.19 X1000 (1.4-6.5); PLT 136 X1000 (130-400); RBC 2.45 XMIL (4.7-6.1); RDW 16.1 % (11.5-14.5); WBC 10.11 X1000 (4.8-10.8)
--- NOTE | 2018-08-05 07:01 | Diag Imaging Result Doc PS360 ---
EXAM: CHEST-PORTABLE 08/05/2018 HISTORY: dyspnea TECHNIQUE: AP portable at 0606 COMMENT: There is hazy opacity over both lung bases. This may be due to pleural fluid. The right hemidiaphragm is elevated as it was on 08/03/2018. The possibility of interstitial pulmonary edema cannot be excluded. IMPRESSION: Bilateral pleural effusions plus minus pulmonary edema. Electronically signed by Charlie Nino 08/05/2018 6:58 AM
[2018-08-05 07:22] LABS: AGAP 11; ALBUMIN 2.7 g/dL (3.5-5.0); ALKALINE PHOSPHATASE 445 U/L (32-122); BUN 10 mg/dL (8-22); CALCIUM 8.2 mg/dL (8.8-10.2); CHLORIDE 105 mmol/L (98-107); COSMO 282; CREATININE 0.6 mg/dL (0.7-1.2); ESTIMATED GFR > 60; GLUCOSE 99 mg/dL (70-104); GOT 115 U/L (10-34); GPT 86 U/L (10-44); MAGNESIUM 1.3 mg/dL (1.5-2.7); PHOSPHORUS 3.2 mg/dL (2.7-4.5); POTASSIUM 3.6 mmol/L (3.5-5.1); SODIUM 142 mmol/L (136-145); TCO2 26 mmol/L (25-35); TOTAL BILIRUBIN 0.91 mg/dL (0.20-1.00); TOTAL PROTEIN 5.3 g/dL (6.3-8.3)
[2018-08-05] MEDS: FOLIC ACID PO SCH (12:18)
[2018-08-05] MEDS: ICAR-C PO SCH ×2 (12:19→21:13)
[2018-08-05] MEDS: CENTRUM SILVER PO SCH (12:19)
[2018-08-05] MEDS: NORVASC PO SCH (12:19)
[2018-08-05] MEDS: VITAMIN B-1 PO SCH (12:19)
[2018-08-05] MEDS: CULTURELLE PO SCH ×2 (12:19→21:13)
[2018-08-05] MEDS: APRESOLINE PO SCH ×3 (12:20→21:13)
[2018-08-05] MEDS: CATAPRES PO SCH (12:20)
[2018-08-05] MEDS: PROTONIX PO SCH ×2 (12:20→21:13)
[2018-08-05] MEDS: LASIX IV SCH (12:21)
[2018-08-05] MEDS ORDERED: MAGNESIUM SULFATE 2 GM/S.W.I. 2 GM/50 ML IVPB IV ONE (12:39)
--- NOTE | 2018-08-05 15:26 | PROVIDER PROGRESS NOTE ---
Progress Note SUBJECTIVE: No acute overnight events. Afebrile. Patient denies any complaints this morning. He was seen by neurology yesterday. No diarrhea or abdominal pain. OBJECTIVE: Last Vital Signs Temp 98.2 F 08/05/18 11:35 Pulse 86 08/05/18 11:35 Resp 20 08/05/18 11:35 BP 145/80 08/05/18 11:35 Pulse Ox 93 L 08/05/18 11:35 Height 5 ft 8 in Weight 157 lb 2 oz GEN: awake, alert, NAD HEENT: anicteric, MMM NECK: supple, no jvd CV: RRR, no murmurs PULM: decreased BS at bases, Normal WOB, no wheezing ABD: mild distension, not tense, BS present, NT, no ascites EXT: no cce LEs, RUE with swelling NEURO: 3/5 RUE strength, patient unable to make fist with right hand, no asterixis LABS: 08/05/18 08/05/18 06:30 06:30 WBC 10.11 Hgb 7.9 L D Plt Count 136 Sodium 142 Potassium 3.6 Chloride 105 Carbon Dioxide 26 BUN 10 Creatinine 0.6 L Total Bilirubin 0.91 AST 115 H ALT 86 H Alkaline Phosphatase 445 H Total Protein 5.3 L Albumin 2.7 L A/P: Mr. Mike Pascal is a 48 year old man who presented with alcoholic pancreatitis found to have CDI and ANGEL. Course complicated with EOTH W/D, ileus, AMS, bibasilar PNA. Pancreatitis resolved. Patient has cholestatic elevated LFTs likely secondary to TPN vs cholestasis of sepsis, vs related to antibiotic therapy. Slowly downtrending. No biliary obstruction on recent US. #Elevated LFTs: s/p TPN and IV abx; continue to trend LFTs daily #RUE weakness: suspected neuropathy; neurology following; appreciate recs #Alcoholic pancreatitis: resolved; cont low fat diet; ensure with meals #CDI: improved; on lactobacillus and vancomycin QID per ID #Bibasilar PNA: completed 7 days of linezolid and merrem #Moderate right pleural effusion: s/p thoracentesis 08/03; incentive spirometry encouraged, supplemental O2 #ETOH W/D: resolved #Severe protein calorie malnutrition: nutrition following #Alcoholism: cont oral thiamine, folate, MVI; ETOH cessation counseling #Anemia: stable; transfused 2 unit pRBCs; without overt bleeding; on PPI BID #AMS: resolved #DISPO: PT/OT, out of bed Will sign off. Please call with questions.
--- NOTE | 2018-08-05 22:53 | PROGRESS NOTE ---
DATE: 08/05/2018 SUBJECTIVE: The patient is feeling better. He is status post thoracentesis and they removed 800 mL of fluid from his right side a few days ago. Chest x-ray is still showing some pleural effusion. I will continue with diuresis. He has been having negative balance for the past few days. He is alert, he is oriented. No signs of withdrawal. His right upper extremity is swollen and weak. Neurology Department already evaluated this patient. They are planning to re-evaluate this patient this Tuesday to see if he needs some nerve studies. OBJECTIVE: Vital Signs: Temperature 98.2, pulse 86, respiratory rate 20, blood pressure 145/80, oxygen saturation 93 on 4 L of nasal cannula. HEENT: Head normocephalic. No trauma. PERRLA. Neck: Supple. No JVD. No masses. Central trachea. Chest: Decreased breath sounds mostly at the bases with rales at the bases. Abdomen: Soft, slightly distended. Positive bowel sounds. Extremities: Trace lower extremity edema. No clubbing. No cyanosis. Neurological: This patient is alert. He is oriented x3. He is following commands. He does have right upper extremity weakness around 3/5. LABORATORY: WBC 10.1, hemoglobin 7.9, hematocrit 23.9, platelets 136. Sodium 142, potassium 3.6, chloride 105, bicarbonate 26, BUN 10, creatinine 0.6, glucose 99, calcium 8.2, magnesium 1.3. AST 115, ALT 86, alkaline phosphatase 445, albumin 2.7. ASSESSMENT AND PLAN: 1. Clostridium difficile colitis, continue with same management. This is better. 2. Initially admitted with high anion gap metabolic acidosis, which is basically resolved. 3. Severe hypophosphatemia, likely secondary to electrolyte abnormality associated with long- standing alcohol abuse and/or re-feeding syndrome. 4. Altered mental status, resolved. 5. Rhabdomyolysis, resolved. 6. Acute kidney injury, resolved. 7. Alcoholic hepatitis. LFTs still elevated, we will monitor. 8. Fluid overload with right-sided pleural effusion, status post thoracentesis where 800 mL of fluid has been removed, continue with Lasix once a day. He has been having negative balance. 9. Fatty liver secondary to alcohol abuse, aware. 10. Severe pancreatitis associated with ileus, resolved. 11. Left lower lobe pneumonia, he already received a course of antibiotics. No fever, no chills. 12. Severe weakness with right upper extremity weakness. Neurology department has been consulted. They will monitor this patient. They will re-evaluate this patient this coming Tuesday to see if he needs a nerve conduction study at that point. 13. Abnormal liver function tests, probably secondary to medications, stable. Also can be related to alcohol abuse. 14. Anemia. Will monitor. Status post 1 packed red blood cells. Hemoglobin above 7. 15. Hypertension, stable. Continue with current medication. cc: Daniel Hills MD
[2018-08-06] MEDS: ATIVAN IV PRN ×4 (00:03→20:33)
[2018-08-06] MEDS: HUMALOG SUBQ SCH ×5 (02:05→20:32)
[2018-08-06 06:19] LABS: HEMATOCRIT 24.9 % (42.0-52.0); HEMOGLOBIN 8.3 g/dL (14.0-18.0)
[2018-08-06 07:04] LABS: AGAP 11; ALB/GLOB RATIO 1.2; ALBUMIN 2.9 g/dL (3.5-5.0); ALKALINE PHOSPHATASE 415 U/L (32-122); BUN 9 mg/dL (8-22); CALCIUM 8.7 mg/dL (8.8-10.2); CHLORIDE 105 mmol/L (98-107); COSMO 287; CREATININE 0.6 mg/dL (0.7-1.2); ESTIMATED GFR > 60; GLUCOSE 93 mg/dL (70-104); GOT 106 U/L (10-34); GPT 84 U/L (10-44); POTASSIUM 3.5 mmol/L (3.5-5.1); SODIUM 145 mmol/L (136-145); TCO2 29 mmol/L (25-35); TOTAL PROTEIN 5.4 g/dL (6.3-8.3)
[2018-08-06] MEDS: VITAMIN B-1 PO SCH (12:56)
[2018-08-06] MEDS: CULTURELLE PO SCH ×2 (13:01→20:33)
[2018-08-06] MEDS: CATAPRES PO SCH (13:02)
[2018-08-06] MEDS: NORVASC PO SCH (13:02)
[2018-08-06] MEDS: FOLIC ACID PO SCH (13:02)
[2018-08-06] MEDS: ICAR-C PO SCH ×2 (13:02→20:32)
[2018-08-06] MEDS: APRESOLINE PO SCH ×3 (13:02→20:32)
[2018-08-06] MEDS: LASIX IV SCH (13:03)
[2018-08-06] MEDS: CENTRUM SILVER PO SCH (13:03)
[2018-08-06] MEDS: PROTONIX PO SCH ×2 (13:04→20:33)
[2018-08-06] MEDS: SSD CREAM TOP SCH ×2 (13:09→20:33)
--- NOTE | 2018-08-06 13:11 | PROGRESS NOTE ---
DATE: 08/06/2018 SUBJECTIVE: No acute events overnight. Today we will continue with the same management. OBJECTIVE: Vital Signs: Temperature 97.6 degrees, pulse 90, respiratory rate 24, blood pressure 151/87, oxygen saturation 99% on 4 L of nasal cannula. HEENT: Head normocephalic, no trauma. PERRLA. Neck: Supple. No JVD. No masses. Central trachea. Chest: Decreased breath sounds mostly at the bases with rales at the bases. Abdomen: Soft, slightly distended, positive bowel sounds. Extremities: Trace lower extremity edema. No clubbing. No cyanosis. Neurological: This patient is alert. He is oriented x3. He is following commands. He has right upper extremity weakness around 3 to 4/5, but he is feeling a little bit better. LABORATORY: Hemoglobin 8.3, hematocrit 24.9. Sodium 145, potassium 3.5, chloride 105, bicarbonate 29, BUN 9, creatinine 0.6, glucose 101, calcium 8.7. AST 106, ALT 84, alkaline phosphatase 415, albumin 2.9. ASSESSMENT AND PLAN: 1. Clostridium difficile colitis, continue with same management. This is better. 2. Initially admitted with high anion gap metabolic acidosis which is basically resolved. 3. Severe hypophosphatemia, resolved. 4. Altered mental status, resolved. 5. Rhabdomyolysis, resolved. 6. Acute kidney injury, resolved. 7. Alcoholic hepatitis, liver function tests are still elevated, but they are getting better. 8. Fluid overload with right-sided pleural effusion, status post thoracentesis where 800 mL of fluid has been removed, continue with Lasix once a day. He has been having a negative balance. 9. Fatty liver secondary to alcohol abuse. Aware. 10. Severe pancreatitis associated with ileus, resolved. 11. Left lower lobe pneumonia. He already received his course of antibiotics. 12. Severe weakness with right upper extremity weakness. Neurology Department has been consulted. They will monitor this patient. They will re-evaluate this patient tomorrow to see if he needs to have a nerve conduction study at that point. 13. Anemia. We will monitor status post 1 PRBC. Hemoglobin is getting better. 14. Hypertension. Stable. Continue with current medication. 15. Generalized weakness and physical deconditioning. Continue physical therapy. 16. Hypoxemia. Continue with oxygen. cc: Daniel Hills MD
[2018-08-07] MEDS: HUMALOG SUBQ SCH ×6 (00:01→20:48)
[2018-08-07] MEDS: ATIVAN IV PRN ×3 (03:02→22:27)
--- NOTE | 2018-08-07 06:49 | Diag Imaging Result Doc PS360 ---
EXAM: CHEST-PORTABLE HISTORY: dyspnea TECHNIQUE: Portable chest single view COMPARISON: 08/05/2018 FINDINGS: No change in the left-sided PICC line. The right hemidiaphragm is elevated. There are basilar infiltrates and/or atelectasis with tiny pleural effusions. No cardiomegaly. The overall appearance is similar to the prior exam. IMPRESSION: Stable chest Electronically signed by Breezy Butler 08/07/2018 6:46 AM
[2018-08-07 07:45] LABS: MAGNESIUM 1.3 mg/dL (1.5-2.7); PHOSPHORUS 4.5 mg/dL (2.7-4.5)
[2018-08-07] MEDS ORDERED: MAGNESIUM SULFATE 2 GM/S.W.I. 2 GM/50 ML IVPB IV ONE (07:50)
[2018-08-07 07:53] LABS: HEMATOCRIT 23.8 % (42.0-52.0); HEMOGLOBIN 7.9 g/dL (14.0-18.0)
[2018-08-07] MEDS: FOLIC ACID PO SCH (08:55)
[2018-08-07] MEDS: APRESOLINE PO SCH ×3 (08:55→20:50)
[2018-08-07] MEDS: CENTRUM SILVER PO SCH (08:55)
[2018-08-07] MEDS: LASIX IV SCH (08:55)
[2018-08-07] MEDS: ICAR-C PO SCH ×2 (08:55→20:50)
[2018-08-07] MEDS: CATAPRES PO SCH (08:55)
[2018-08-07] MEDS: SSD CREAM TOP SCH ×2 (08:55→20:51)
[2018-08-07] MEDS: VITAMIN B-1 PO SCH (08:55)
[2018-08-07] MEDS: NORVASC PO SCH (08:56)
[2018-08-07] MEDS: PROTONIX PO SCH (08:56)
[2018-08-07] MEDS: CULTURELLE PO SCH ×2 (08:56→20:50)
[2018-08-07 10:05] LABS: AGAP 10; ALBUMIN 2.9 g/dL (3.5-5.0); ALKALINE PHOSPHATASE 370 U/L (32-122); BUN 11 mg/dL (8-22); CALCIUM 8.3 mg/dL (8.8-10.2); CHLORIDE 100 mmol/L (98-107); COSMO 278; CREATININE 0.7 mg/dL (0.7-1.2); ESTIMATED GFR > 60; GLUCOSE 91 mg/dL (70-104); GOT 110 U/L (10-34); GPT 81 U/L (10-44); SODIUM 140 mmol/L (136-145); TCO2 30 mmol/L (25-35); TOTAL BILIRUBIN 0.74 mg/dL (0.20-1.00); TOTAL PROTEIN 5.7 g/dL (6.3-8.3)
--- NOTE | 2018-08-07 12:10 | PROGRESS NOTE ---
DATE: 08/07/2018 SUBJECTIVE: Mr. Pascal received recent lorazepam dose and he is groggy now. He was not attentive to my physical examination. Nursing staff reports he had declared earlier that the right arm problems were not significantly changed in recent days. He continues to have weakness in the right [facility] psychiatrist. I think it would be reasonable to go ahead with nerve conduction study when practical. That will not be available today. We can do this later inpatient or outpatient. He does not need to remain hospitalized solely for nerve conduction study. Thanks for asking Neurology to see Mr. Pascal. I will check to see if he continues hospitalized and arrange nerve conduction inpatient or outpatient. cc: Erik Modi III, MD
--- NOTE | 2018-08-07 14:24 | PROGRESS NOTE ---
DATE: 08/07/2018 SUBJECTIVE: No acute events overnight. We will continue with the same management, but I will stop the Lasix IV since he looks euvolemic. He still has some infiltrates, and a little bit of pleural effusion, but he is breathing better. He is still requiring oxygen for his hypoxemic respiratory failure. I will put him on p.o. Lasix, and I will monitor. He has been having negative balance for the past few days, and he is feeling better. Also, we did a thoracentesis a few days ago where 800 mL of fluid has been removed. OBJECTIVE: Vital Signs: Temperature 97.9 degrees, pulse 93, respiratory rate 16, blood pressure 126/91 and oxygen saturation 93 on 4 L of nasal cannula. HEENT: Head normocephalic. No trauma. PERRLA. Neck: Supple. No JVD. No masses. Central trachea. Chest: Decreased breath sounds mostly at the bases with some rales. Abdomen: Soft, slightly distended. Positive bowel sounds. Extremities: Trace lower extremity edema. No clubbing. No cyanosis. Neurological: The patient is sleepy, but arousable and oriented x3. He is following commands. He has right upper extremity weakness, and is a little bit swollen. Strength is 3 to 4/5, but he has been a little bit better. LABORATORY: WBC 7.9, hemoglobin 7.9 and hematocrit 23.8. Sodium 140, potassium 3, chloride 100, bicarbonate 30, BUN 11, creatinine 0.7, glucose 91, calcium 8.3, magnesium 1.3. AST 110, ALT 81, alkaline phosphatase 370, and albumin 2.9. ASSESSMENT AND PLAN: 1. C. Diff colitis. Continue with the same management. He is no longer having treatment with vancomycin since it has been completed. No diarrhea. We will monitor. 2. Initially admitted with high anion gap metabolic acidosis which is basically resolved. Aware. 3. Severe hypophosphatemia, resolved. 4. Altered mental status, resolved. 5. Rhabdomyolysis resolved. 6. Acute kidney injury resolved. 7. Alcoholic hepatitis. Liver function tests are still elevated, but they are getting better slowly especially alkaline phosphatase. 8. Fluid overload with right-sided pleural effusion status post thoracentesis where 100 mL of fluid has been removed. I will continue with low dose of Lasix, probably this can be stopped in the future. 9. Fatty liver secondary to alcohol abuse aware. 10. Severe pancreatitis associated with ileus, resolved. 11. Left lower lobe pneumonia, he is not complaining of fever or chills or cough at this moment, but he is still hypoxemic. Continue with the same management. He already completed treatment with antibiotics. 12. Severe weakness with right upper extremity weakness. Neurology Department has been consulted. They evaluated this patient today. If this patient is going to stay in the hospital, they will do a nerve conduction study. Otherwise, it can be done as an outpatient. 13. Anemia. We will monitor status post 1 PRBC. Hemoglobin is better, stable. 14. Hypertension, stable. I will continue with same management. 15. Hypoxemic respiratory failure. Continue with oxygen. 16. Generalized weakness and physical deconditioning. This patient is really weak. Physical Therapy has been working on him. We will continue to monitor. 17. Overall, this patient is doing much better. I believe we are close to being able to have him discharged. He is not going to be able to go to rehab center or get help at home with physical therapy I believe. He is still requiring oxygen, and probably he will need to be discharged with oxygen. I have been using diuretics on this patient every single day, and have been having a negative balance for the past 4 to 5 days. He feels that he is breathing better. He is no longer using high-flow oxygen. He is using a nasal cannula. Paracentesis has been performed. 800 mL of fluid has been removed. I believe this patient can be discharged in the next 48 to 72 hours. He is getting much better. He is tolerating p.o., and he is having bowel movements. We need to try to set up everything so he can go home and try to get at least home health if we can. He is still having high low magnesium and potassium. I will replace it today again, and I will monitor again this number tomorrow. cc: Daniel Hills MD
[2018-08-07] MEDS: KLOR-CON PO SCH ×2 (16:00→20:50)
[2018-08-08] MEDS: HUMALOG SUBQ SCH ×6 (00:16→21:24)
[2018-08-08] MEDS: ATIVAN IV PRN ×3 (04:01→21:23)
[2018-08-08 06:39] LABS: BASO# 0.05 X1000 (0.0-0.2); BASO% 0.6 % (0.0-0.8); EOS# 0.31 X1000 (0.0-0.7); EOS% 3.7 % (0.0-10.0); HEMATOCRIT 25.8 % (42.0-52.0); HEMOGLOBIN 8.4 g/dL (14.0-18.0); IMM GRAN# 0.13 X1000 (0.0-0.04); IMM GRAN% 1.5 % (0.0-0.5); LYMPH# 1.21 X1000 (1.2-3.4); LYMPH% 14.4 % (20.5-51.1); MCH 32.1 PG (27-31); MCHC 32.6 g/dL (33-37); MCV 98.5 FL (81-99); MONO# 0.84 X1000 (0.11-0.59); MPV 9.9 FL (7.4-10.4); NEUT# 5.88 X1000 (1.4-6.5); NEUT% 69.8 % (42.2-75.2); PLT 213 X1000 (130-400); RBC 2.62 XMIL (4.7-6.1); RDW 16.2 % (11.5-14.5); WBC 8.42 X1000 (4.8-10.8)
[2018-08-08 07:10] LABS: AGAP 11; ALKALINE PHOSPHATASE 347 U/L (32-122); BUN 10 mg/dL (8-22); CALCIUM 8.5 mg/dL (8.8-10.2); CHLORIDE 104 mmol/L (98-107); COSMO 286; CREATININE 0.6 mg/dL (0.7-1.2); ESTIMATED GFR > 60; GLUCOSE 94 mg/dL (70-104); GOT 96 U/L (10-34); GPT 77 U/L (10-44); MAGNESIUM 1.4 mg/dL (1.5-2.7); PHOSPHORUS 4.1 mg/dL (2.7-4.5); POTASSIUM 3.7 mmol/L (3.5-5.1); SODIUM 144 mmol/L (136-145); TCO2 29 mmol/L (25-35); TOTAL BILIRUBIN 0.73 mg/dL (0.20-1.00); TOTAL PROTEIN 5.9 g/dL (6.3-8.3)
[2018-08-08] MEDS: CULTURELLE PO SCH ×2 (09:23→21:23)
[2018-08-08] MEDS: APRESOLINE PO SCH ×3 (09:23→21:23)
[2018-08-08] MEDS: PROTONIX PO SCH (09:23)
[2018-08-08] MEDS: CATAPRES PO SCH (09:23)
[2018-08-08] MEDS: FOLIC ACID PO SCH (09:23)
[2018-08-08] MEDS: VITAMIN B-1 PO SCH (09:23)
[2018-08-08] MEDS: CENTRUM SILVER PO SCH (09:23)
[2018-08-08] MEDS: ICAR-C PO SCH ×2 (09:23→21:24)
[2018-08-08] MEDS: NORVASC PO SCH (09:23)
[2018-08-08] MEDS: SSD CREAM TOP SCH ×2 (09:24→21:24)
[2018-08-08] MEDS: LASIX LIQUID PO SCH (09:24)
[2018-08-08] MEDS ORDERED: MAGNESIUM SULFATE 2 GM/S.W.I. 2 GM/50 ML IVPB IV ONE (11:14)
--- NOTE | 2018-08-08 12:51 | PROGRESS NOTE ---
DATE: 08/08/2018 SUBJECTIVE: The patient reports feeling much better. Denies any complaints at this time, breathing okay. Still requiring 4 L of oxygen by nasal cannula, though. OBJECTIVE: Vital Signs: Temperature 98.1 degrees, heart rate 89, respiratory 14, blood pressure 149/93, O2 saturation 95% on 4 L nasal cannula. General Examination: This is a chronically ill- appearing, 48-year-old male, lying in bed in no acute distress. HEENT: Head is normocephalic, atraumatic. Mucous membranes dry. Poor dentition. Neck: No JVD noted. No carotid bruits. No lymphadenopathy. No thyromegaly. Cardiovascular exam: S1, S2 heard. No murmurs, gallops, or rubs. Regular rate and rhythm. Respiratory: Decreased breath sounds globally, but there are no rales or rhonchi noted. Patient is not using any accessory muscles or having work of breathing. Abdomen: Soft, a little bit distended, but nontender to palpation. Bowel sounds present. No organomegaly. Extremities: Mild lower extremity edema. No clubbing or cyanosis noted. Neurological exam: Patient is alert, oriented x3. Moves 4 extremities. Follows commands. He reported the right upper extremity weakness is completely back to normal and swelling is also gone. LABORATORY DATA: White cell count 8.42, hemoglobin 8.4, hematocrit 25.8, platelets 213 with normal BMP. Calcium is 8.5, AST 96, ALT 77 with alkaline phosphatase 347. ASSESSMENT/PLAN: 1. Clostridium difficile colitis, resolved. 2. Severe hypophosphatemia, resolved. 3. Acute kidney injury, resolved. 4. Rhabdomyolysis, resolved. 5. Alcoholic hepatitis. Liver function tests are still elevated, but are getting better. Gastroenterology has been following this patient, but they signed off. 6. Fluid overload with right-sided pleural effusion, status post thoracentesis. He had an x-ray that showed stable chest, but it was a portable x-ray. I am planning to do it considering that he is able to stand up a posterior/anterior and lateral x-ray to see how this patient is doing. 7. Fatty liver secondary to alcohol abuse, aware. 8. Severe pancreatitis, resolved. 9. Left lower lobe pneumonia, resolved. 10. Possibly weakness in the right upper extremity we mentioned before. Patient reports feeling fine. We will see if Neurology considered that this patient still need conduction studies. 11. Anemia of chronic disease. Hemoglobin is stable so far at 8.4. We will continue to monitor. 12. Hypertension, stable. We will continue with the same management. 13. Acute hypoxemic respiratory failure. Patient is still requiring 4 liters of oxygen by nasal cannula. I think he will need it upon discharge. 14. General weakness and physical deconditioning. The patient reports having walked around his room. Physical therapy is also working with this patient. 15. Overall, this patient is getting much better. I think if he continues to improve like he is now, he can be discharged tomorrow morning. cc: Domenico Tyler MD
--- NOTE | 2018-08-08 14:07 | PROGRESS NOTE ---
DATE: 08/08/2018 SUBJECTIVE: Mr. Pascal is awake and alert today. He reports significant improvement in right arm function. 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 Weakness is still more prominent in the right 2nd finger flexor. I believe there is some improvement in strength in right opponens pollicis. He continues to have good power in the right finger extensors and wrist extensor. IMPRESSION: Right hand weakness. 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 He reports improvement, and I believe there is objective evidence of improved power in the right hand now compared to 4 days ago. In that setting, I do not think we have to do anything urgently. I think we will need to consider nerve conduction and EMG when practical. Mr. Pascal told me he expects to be discharged tomorrow and my office will contact him to arrange outpatient follow-up. Thanks for asking Neurology to see Mr. Pascal. cc: Erik Modi III, MD
[2018-08-09] MEDS: HUMALOG SUBQ SCH ×3 (00:49→15:48)
[2018-08-09] MEDS: ATIVAN IV PRN (03:56)
[2018-08-09 06:45] LABS: HEMATOCRIT 25.7 % (42.0-52.0); HEMOGLOBIN 8.2 g/dL (14.0-18.0); MCV 98.8 FL (81-99); WBC 7.55 X1000 (4.8-10.8)
[2018-08-09 06:46] LABS: BASO# 0.04 X1000 (0.0-0.2); BASO% 0.5 % (0.0-0.8); IMM GRAN# 0.06 X1000 (0.0-0.04); IMM GRAN% 0.8 % (0.0-0.5); LYMPH# 1.26 X1000 (1.2-3.4); LYMPH% 16.7 % (20.5-51.1); MCH 31.5 PG (27-31); MCHC 31.9 g/dL (33-37); MONO# 0.77 X1000 (0.11-0.59); MONO% 10.2 % (1.7-9.3); NEUT# 5.12 X1000 (1.4-6.5); NEUT% 67.8 % (42.2-75.2); PLT 223 X1000 (130-400); RDW 16.3 % (11.5-14.5)
[2018-08-09 07:11] LABS: AGAP 11; BUN 10 mg/dL (8-22); CALCIUM 8.8 mg/dL (8.8-10.2); CHLORIDE 100 mmol/L (98-107); COSMO 276; CREATININE 0.6 mg/dL (0.7-1.2); ESTIMATED GFR > 60; GLUCOSE 94 mg/dL (70-104); MAGNESIUM 1.4 mg/dL (1.5-2.7); POTASSIUM 3.4 mmol/L (3.5-5.1); SODIUM 139 mmol/L (136-145); TCO2 28 mmol/L (25-35)
--- NOTE | 2018-08-09 10:05 | Diag Imaging Result Doc PS360 ---
EXAM: CHEST-2 VIEWS INDICATION: pleural effusion TECHNIQUE: 2 views COMPARISON: 08/07/2018 FINDINGS: The left PICC line is in stable position. The very small effusions seen previously are essentially stable. There is stable elevation of the right hemidiaphragm. Atelectasis at the left lung base is slightly worse than the previous study but is still mild. No new consolidation is identified. Cardiac silhouette is stable. IMPRESSION: Increased atelectasis at the left lung base. Essentially stable chest, otherwise. Electronically signed by Victoriano Fay 08/09/2018 10:03 AM
[2018-08-09] MEDS ORDERED: MAGNESIUM SULFATE 2 GM/S.W.I. 2 GM/50 ML IVPB IV ONE (10:06)
[2018-08-09] MEDS ORDERED: KLOR-CON PO ONE (10:06)
[2018-08-09] MEDS: NORVASC PO SCH (10:33)
[2018-08-09] MEDS: PROTONIX PO SCH (10:33)
[2018-08-09] MEDS: ICAR-C PO SCH (10:33)
[2018-08-09] MEDS: APRESOLINE PO SCH ×2 (10:33→16:13)
[2018-08-09] MEDS: CULTURELLE PO SCH (10:33)
[2018-08-09] MEDS: FOLIC ACID PO SCH (10:33)
[2018-08-09] MEDS: CATAPRES PO SCH (10:33)
[2018-08-09] MEDS: VITAMIN B-1 PO SCH (10:33)
[2018-08-09] MEDS: CENTRUM SILVER PO SCH (10:33)
[2018-08-09] MEDS: LASIX LIQUID PO SCH (10:34)
[2018-08-09 16:22] VITALS: BP 137/79
--- NOTE | 2018-08-09 22:36 | DISCHARGE SUMMARY ---
ADMISSION DATE: 07/16/2018 DISCHARGE DATE: 08/09/2018 The patient had a 24-day hospital stay. ADMISSION DIAGNOSES: 1. Severe metabolic acidosis. 2. Severe dehydration. 3. Alcohol withdrawal. 4. Hepatic encephalopathy. 5. Severe dehydration. 6. Acute kidney injury secondary to dehydration. 7. Transaminitis. 8. Alcohol abuse. 9. Alcoholic ketoacidosis. 10.Rhabdomyolysis. 11.Severe protein calorie malnutrition. DISCHARGE DIAGNOSES: 1. Clostridium difficile colitis that is resolved. 2. Severe hypophosphatemia, resolved. 3. Acute kidney injury, resolved. 4. Rhabdomyolysis from dehydration, resolved. 5. Alcoholic hepatitis secondary to alcohol abuse. Liver enzymes improving. 6. Fluid volume overload with right-sided pleural effusion, status post thoracentesis. Last chest x-ray showed stable chest. 7. Severe pancreatitis, resolved. 8. Left lower lobe pneumonia, resolved. 9. Right upper extremity weakness. Per Dr. Modi, it is median neuropathy that is improving. Consider nerve conduction and EMG as an outpatient. 10.Anemia of chronic disease, stable. 11.Hypertension, stable. 12.Acute hypoxemic respiratory failure still requiring 4 liters of oxygen, and will be discharged home with it. 13.Generalized weakness and physical deconditioning. He is actually starting to walk around in his room, and he was managed by physical therapy while he was here. CONSULTATIONS: 1. Dr. Jami Goldberg for C difficile colitis treatment and pneumonia. 2. Dr. Ben Simental for severe pancreatitis. 3. Dr. Erik Modi for right upper extremity weakness. 4. Dr. Frankie Lugo from Nephrology for severe acidosis and acute kidney injury. SURGERIES/PROCEDURES: On 08/03/2018 he had thoracentesis/ultrasound, where on the right pleural effusion 800 mL of straw-colored serous fluid was removed. HOSPITAL COURSE: On 07/16/2018, Mr. Mike Jung, a 48-year-old male who has a history of alcohol abuse presented with confusion since the day before admission. He was unable to be neurologically assessed appropriately for information at that time. His mother and father were at the bedside but stated that he had had noncoherent speech since the day before, and was randomly lying down on the ground and was still confused the morning of admission, so they called EMS. He was found to have severe metabolic acidosis, acute kidney injury, and elevated CKs revealing rhabdomyolysis. His alcohol level was 0 on admission, so he was initiated on IV fluids and a banana bag. I believe he had presented to [facility] and was transferred to [facility]. He was started on lactulose, as he had an elevated ammonia level of 158. Dr. Lugo saw the patient. His impression revealed alcoholic ketoacidosis with an anion gap of 50 and appropriate respiratory compensation. He started him on sulfamethoxazole and began bicarb with that, treated his lowered potassium, started him on a beta ari and IV Ativan. He continued on the bicarb drip, and his alcoholic ketoacidosis improved. With the lactulose and rifaximin, his ammonia levels improved, but he continued with hepatic encephalopathy. By July 18, which was 2 days after his admission, his anion gap closed to 13, but he was in respiratory alkalosis with metabolic alkalosis. His bicarb drip was stopped on day 2 of admission. Potassium continued to be replaced, along with phosphorus. By July 20, his acute kidney injury started to improve. On the he had some abdominal distention, and an x-ray revealed possible ileus or early obstruction. He had some leukocytosis along with that, mild tachycardia, and fever, so he was cultured. He had diarrhea, and so they sampled that as well, which came back as C difficile. His imaging revealed that he also had pleural effusions and underlying infiltrates. A CT of his abdomen and pelvis showed pancreatitis. No obstruction. He was started on p.o. vancomycin. By July 23 he had complaints of right arm swelling and difficulties with strength on it. He had an ultrasound. It was negative for DVT. A pneumonia was diagnosed in his left lower lobe. He was started on meropenem. He required oxygen. Because of the C difficile and pneumonia, Dr. Goldberg was consulted, and due to the pancreatitis that was found, Gastroenterology was consulted. Dr. Goldberg saw the patient and kept him on p.o. vancomycin and added IV Flagyl, and agreed with the meropenem. He questioned possible spontaneous bacterial peritonitis. Dr. Simental saw him and continued him on the clear liquid diet and Ensure and continued him on Protonix for GI prophylaxis, and started him on IV fluid resuscitation again. He was also given albumin. With his anemia, he was started on Iron Fe twice a day, and it was felt that the ileus was driven by the severe pancreatitis. With fluids that were given, he went into fluid volume overload and pulmonary edema with pleural effusions. All the p.o. medications were switched over to IV that could be switched over. He was initiated on TPN. At that point he was high risk for intubation and was transferred to the ICU. That was on July 24. Abdominal x-ray on the showed improvement of the ileus. Dr. Lugo signed off on the 25 of July, as the acute kidney injury resolved, and the electrolyte abnormalities did as well. On the , Dr. Goldberg added Zyvox 600 by mouth every 12 hours to cover the possibility of MRSA. Chest x-ray that was performed on the showed worsening results, infiltrates, and atelectasis in bibasilar locations. He had had a PICC line placed, and apparently it was coiled in the distal superior vena cava. He also ended up getting Lasix to help pull off fluid on the , and he put out 6600 mL. He was on a Librium taper while he was here. His mental state improved, with occasional spells of confusion. He became weak while he was here and required physical therapy. His p.o. intake slowly started to improve as well, and on the he was moved to the floor form the ICU. He had an elevation in his alkaline phosphatase, so had an abdominal ultrasound to evaluate for biliary sludge or common bile duct stricture. Found pancreatitis, but none of those were on the ultrasound. On the 02 of August, his meropenem and Zyvox were discontinued, as the pneumonia had resolved. He was still continued on the oral vancomycin. Due to the volume overload, he was initiated on Lasix scheduled. He was hypertensive, and those medications were changed around as well. On the he had a thoracentesis/ultrasound, and they pulled 800 mL of straw-colored serous fluid. Chest x-ray on the showed improvement of the right pleural effusion after the thoracentesis. There was no postprocedural pneumothorax. He still continued throughout his stay having issues with his right arm, so Dr. 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 No urgent interventions were needed. On the , he had a hemoglobin that dropped down to 6.2 and required blood transfusion of 1 unit of blood. On the , Dr. Goldberg signed off. Dr. Modi recommended a nerve conduction study or an EMG to be obtained as an outpatient. During his stay, apparently he was on high-flow nasal cannula, which was decreased to 4 L prior to discharge. Had a chest x-ray performed today that showed increased atelectasis in the left lung base but essentially was a stable chest. The PICC line on the left was still in position. DISCHARGE VITAL SIGNS: Temperature 98.9, heart rate 87, respiratory rate 16, blood pressure 139/87. It looked he had gotten down to 2 L nasal cannula with 95% saturation. DISCHARGE LABORATORY DATA: White blood cells 7000, hemoglobin 8, hematocrit 25, platelet count 223. Sodium 139, potassium 3.4, BUN 2, creatinine 0.6, glucose 96, calcium 8.8, magnesium 1.4. Microbiology: Blood culture from 07/16 showed gram-positive cocci and coag- negative Staphylococcus, but the second set of cultures were negative. On 07/21/2018 he had a positive C difficile, and he had repeat cultures on July 21 and on July 25, and those cultures were negative. PERTINENT IMAGING: Chest x-ray on admission was negative. Head CT on admission was negative for any acute findings. Abdominal ultrasound: Fatty liver. On July 21, abdominal x- ray showed a possible ileus or early obstruction. On July 22, he had a chest CT with moderate- sized pleural effusions, left lower lobe atelectasis, and an infiltrate. Then had an abdominopelvic CT with suspected pancreatitis. No bowel obstruction, and it showed ascites. Venous ultrasound on July [address] on July 23 showed stable mild diffuse brain atrophy, nothing acute. Abdominal x-ray on July 25: Improved ileus. Chest x-ray on July 27: Worsening infiltrates. On July 31, abdominal ultrasound showed ascites, prominent liver, fluid around the pancreas related to the recent pancreatitis. He had a thoracentesis on August 03. Chest x-ray on August 05: Pleural effusions and pulmonary edema. On August 09, chest x-ray showed increased atelectasis at the left lung base, but very mild. EKG on admission showed normal sinus rhythm with PVCs, rate 85, QTc 564 (prolonged QTc). DISCHARGE MEDICATIONS: 1. Hydralazine 25 mg p.o. three times daily. 2. Catapres 0.1 mg p.o. daily. 3. Multivitamin once daily. 4. Icar-C 1 tab p.o. twice daily. 5. Amlodipine 10 mg p.o. daily. 6. Thiamine 100 mg p.o. daily. DISCHARGE DIET: Healthy heart diet with Ensure 3 times a day. DISCHARGE ACTIVITY: As tolerated . DISCHARGE INSTRUCTIONS: If your condition changes, contact your physician and/or return to the emergency department. Changes may include but are not limited to shortness of breath, increased fatigue, excessive bleeding, unexplained weight loss or gain, unimaginable pain, or signs or symptoms of infection. Please do not drink any more alcohol. PHYSICIAN FOLLOWUP: Dr. Modi, Dr. Goldberg, Dr. Simental. DISCHARGE DISPOSITION: Home. Dictated by POLA Hensley for Domenico Tyler MD Addendum: Patient seen and examined by myself. Agree with POLA note. It reflects my assessment and plan. Patient is being discharged from hospital in stable condition. Will need home oxygen and will be seen by Dr. Modi in the office in 2 weeks. cc: POLA Hensley MD [facility]
== END 2018-08-09 17:06 | disposition home or self-care (01) | DRG 640 ==
LOC: P.ED 13:35 → SUATTDRO 17:32 → P.ICU 17:32 → ICU 18:23 → 3N 07-20 17:38 → ICU 07-24 12:21 → 4N 07-29 12:08
PROVIDERS: ATTEND Internal Medicine
CPT/HCPCS: 32421; 32555; 36430; 36569; 51702; 70450; 71010; 71020; 71045; 71046; 71250; 74000; 74018; 74019; 74020; 74176; 76700; 80048; 80053; 80061; 80069; 80074; 80076; 80196; 80307; 80320; 80324; 80329; 81001; 82003; 82009; 82055; 82140; 82247; 82248; 82330; 82465; 82550; 82553; 82693; 82805; 82948; 83605; 83690; 83735; 83930; 84075; 84080; 84100; 84132; 84134; 84443; 84450; 84478; 84484; 85014; 85018; 85025; 85610; 85730; 86140; 86850; 86870; 86900; 86901; 86920; 86922; 87040; 87045; 87046; 87088; 87205; 87324; 89055; 93005; 93010; 93970; 93971; 94761; 94762; 94799; 96361; 96365; 96366; 96368; 96375; 97110; 97162; 97165; 97530; 97535; 99285; A9270; C9113; G0480; G6038; G6039; G6040; J0610; J0696; J1451; J1815; J1940; J2060; J2185; J2405; J3411; J3475; J3480; J7030; J7040; J7042; J7050; J7070; P9016; P9047; S0030; S0164; XXXXX